=== PATIENT | female | born 1985 | race Caucasian/White ===

== ENCOUNTER 2020-04-01 21:25 | Emergency (ER) | payer OTHER, SELFPAY ==
[2020-04-01 21:38] VITALS: BP 170/101; PULSE 111; RESP 16; TEMP 36.7; O2SAT 97; BMI 38.9
--- NOTE | 2020-04-01 22:01 | XR_ITS ---
PROCEDURE: XR CHEST 2V Referring Doctor: José Miguel Bowie Patient Age:34Y CLINICAL HISTORY: shortness of air. Burning central chest pain 3 days. Abdominal pain COMPARISON: CT CT ANGIO CHEST from 04/01/2020 FINDINGS: Poor inspiratory effort on the current PA and lateral film obtained today.-This crowds and accentuates lung markings bilaterally. And I believe accounts for the slightly generous central markings I believe attributable to the poor inspiration; although difficult to exclude some mild vascular engorgement and congestion. However heart is normal in size. The peripheral lung astorga are clear and unremarkable with no focal consolidation or peripheral pneumonia No pleural effusion. No pneumothorax. Prominent gastric bubble reflects the moderate distention of stomach. There is contrast seen within the kidneys bilaterally but some generous gas within large bowel with some moderate air-fluid levels in bowel. Upper abdomen Chest wall, ribs T-spine unremarkable on standard PA and lateral chest IMPRESSION: Poor inspiration crowds and a accentuates markings bilaterally. . Mild prominence of central markings central vascularity most likely attributable to the poor inspiration. No focal pneumonia . Incidental note generous gastric bubble-moderate gaseous distension. Dictated by: Cruz Rene MD 04/02/2020 12:14 Cruz Rene MD in [place] 04/02/2020 12:14
[2020-04-01 22:18] LABS: Basophils % 0.3 % (0.1-2.0); Hematocrit 42.7 % (37.0-47.0); Hemoglobin 14.1 g/dL (12.2-16.2); Lymphocytes # 1.3 K/mm3 (0.7-4.5); Lymphocytes % 13.7 % (10-50); Mean Corpuscular Hemoglobin 28.4 pg (27.0-31.2); Monocytes # 0.7 K/mm3 (0.1-1.0); Monocytes % 7.6 % (1.7-9.3); Neutrophils # 7.3 K/mm3 (1.8-7.8); Neutrophils % 78.4 % (37.0-80.0); Platelet Count 299 K/mm3 (142-424); Red Blood Count 4.96 M/mm3 (4.20-5.40); Red Cell Distribution Width 13.5 % (11.5-17.5); White Blood Count 9.3 K/mm3 (4.8-10.8)
[2020-04-01 22:30] LABS: Alanine Aminotransferase 40 U/L (12-78); Albumin Level 4.7 g/dl (3.5-5.0); Albumin/Globulin Ratio 1.4 (1.1-1.8); Alkaline Phosphatase 89 U/L (38-126); Anion Gap 15.2 mEq/L (5-15); Aspartate Amino Transferase 31 U/L (14-36); Bilirubin,Total 0.2 mg/dl (0.2-1.3); Blood Urea Nitrogen 17 mg/dl (7-17); Calcium 9.9 mg/dl (8.4-10.2); Carbon Dioxide 25 mmol/L (22.0-30.0); Chloride 104 mmol/L (98-107); Creatinine Clearance Estimated 177 mL/min (50-200); Estimated Glomerular Filt Rate 95 ml/min (>60); GFR (African American) 115 ML/MIN (>60); Globulin 3.4 g/dL (1.3-3.2); Glucose 128 mg/dl (74-100); Potassium 4.2 mmoL/L (3.5-5.1); Sodium 140 mmol/L (136-145); Total Protein,Serum 8.1 g/dl (6.3-8.2)
[2020-04-01 22:35] LABS: C-Reactive Protein 4.7 mg/L (0-4)
--- NOTE | 2020-04-01 22:35 | CT_ITS ---
PROCEDURE: CT ANGIO CHEST Referring Doctor: José Miguel Bowie Patient Age:34Y CLINCIAL INDICATION: PE r/o Chest burning chest pain 3 days short of breath started today. Nonsmoker. COMPARISON: CR XR CHEST 2V from 04/01/2020 TECHNIQUE: IV Contrast: 70ML Isovue 370 Axial images obtained with sagittal and coronal reformats. All CT scans at the facility use one or more dose reduction, viz: automated exposure control, ma/kV adjustment per patient size (including targeted exams where dose is matched to indication, i.e. head), or iterative reconstruction technique. FINDINGS: PULMONARY ARTERIES: No pulmonary embolus evident. But the main pulmonary artery measures up to 3.5 cm transverse diameter-of this may reflect underlying developing pulmonary hypertension (upper normal measuring value for pulmonary artery 3.3 cm) alternatively pulmonary valve stenosis could yield some possibly yield some poststenotic dilatation. Thus recommend echocardiogram to further survey these features and serve as baseline AORTA: No acute finding. No thoracic aortic aneurysm or dissection evident LUNGS: Mild dependent atelectasis most evident at the posterior left lung base No focal pneumonia or consolidation. Small 6 mm calcified granuloma left upper lobe l PLEURAL SPACES: No sig pleural effusion. No evidence of pneumothorax. HEART: Unremarkable. Normal heart size. No significant pericardial effusion. MEDIASTINAL AND HILAR STRUCTURES: No mediastinal or hilar mass evident. No dominant adenopathy Small calcified node anterior fat pad anterior to the left cardiac apex incidentally. Also tiny calcified left hilar node likely reflect old granulomatous disease BONY STRUCTURES: No acute bony abnormalities apparent. Chest wall, ribs and T-spine intact. Scant degenerative changes T-spine LYMPH NODES: No enlarged lymph nodes evident. UPPER ABDOMEN: The stomach appears relatively distended of mainly fluid along with some minimal particulate food. Diffuse fatty changes the liver noted IMPRESSION: 1..No evidence of pulmonary embolism . Aorta satisfactory as well . Only mild bibasilar atelectasis most notable left lung base. No significant acute pulmonary findings 2..Note slight dilatation of the main pulmonary artery up to 3.5 cm diameter. Could reflect developing pulmonary hypertension; consider echocardiogram to further characterize 3. Other observations: Fatty changes the liver Distended stomach upper normal wall thickness distal esophagus-any history of reflux? Dictated by: Cruz Rene MD 04/02/2020 12:07 Cruz Rene MD in [facility] 04/02/2020 12:07
[2020-04-01 22:40] VITALS: BP 165/89; PULSE 91; RESP 16; O2SAT 98
[2020-04-01 22:49] LABS: Procalcitonin 0.059 ng/mL (0.0-2.0)
--- NOTE | 2020-04-01 23:23 | HMH.EDURI ---
ED Disposition Clinical Impression: Viral infection, COVID-19 virus IgG antibody detected, COVID-19 virus IgM antibody detected, Pulmonary HTN Disposition: Home, Self-Care Condition on Discharge: Good Instructions: Preventing the Spread of Coronavirus Discharge Instructions Additional Instructions: fluids and see card for follow up - and covid-19 precautions Referrals: PCP,No [Primary Care Provider] - - Critical Care Critical Care Time: No Attestation: On 04/01/20, the high probability of a clinically significant, sudden or life threatening deterioration of the following system(s) required my full and direct attention, intervention and personal management. The time I documented below is in addition to time spent performing reported procedures but includes the following listed in this critical care notation. Medical Decision Making - Medical Records Medical records reviewed: Yes: I reviewed the patient's medical records. - Alejo Inquiry Pt receiving controlled substance: No Vital Signs: 04/01/20 21:38 Temperature 98.1 F Temperature Source Oral Pulse Rate [Right Brachial] 111 H Respiratory Rate 16 Blood Pressure [Right Arm] 170/101 H Blood Pressure Mean [Right Arm] 124 Blood Pressure Source [Right Arm] Automatic Cuff Blood Pressure Position [Right Arm] Sitting 02 Sat by Pulse Oximetry 97 Oxygen Delivery Method Room Air - Lab Data Lab results reviewed: Yes: I reviewed the patient's lab results. Lab Results 04/01/20 22:00: WBC 9.3, RBC 4.96, Hgb 14.1, Hct 42.7, MCV 86.0, MCH 28.4, MCHC 33.0, RDW 13.5, Plt Count 299, MPV 8.0, Neut % (Auto) 78.4, Lymph % (Auto) 13.7, Scott % (Auto) 7.6, Eos % (Auto) 0.0 L, Baso % (Auto) 0.3, Neut # (Auto) 7.3, Lymph # (Auto) 1.3, Scott # (Auto) 0.7, Eos # (Auto) 0.0, Baso # (Auto) 0.0 04/01/20 22:00: Sodium 140, Potassium 4.2, Chloride 104, Carbon Dioxide 25, Anion Gap 15.2 H, BUN 17, Creatinine 0.70, Estimated Creat Clear 177, Estimated GFR 95, Est GFR ( Amer) 115, Glucose 128 H, Calcium 9.9, Total Bilirubin 0.2, AST 31, ALT 40, Alkaline Phosphatase 89, C-Reactive Protein 4.7 H, Total Protein 8.1, Albumin 4.7, Globulin 3.4 H, Albumin/Globulin Ratio 1.4 04/01/20 22:00: Procalcitonin 0.059 04/01/20 22:00: SARS-CoV-2 IgG Ab (Rapid) Positive A, SARS-CoV-2 IgM Ab (Rapid) Positive A Result diagrams: 04/01/20 22:00 04/01/20 22:00 Orders (Tests/Meds): ED MEDICATIONS Generic Name Dose Route Start Last Admin Trade Name Freq PRN Reason Stop Dose Admin Sodium Chloride 1,000 mls @ 999 mls/hr 04/01/20 22:15 04/01/20 22:11 Sod Chlor 0.9% 1000ml Bag IV 04/01/20 23:15 999 mls/hr .Q1H1M ANA Administration Discontinued Medications Generic Name Dose Route Start Last Admin Trade Name Freq PRN Reason Stop Dose Admin Sodium Chloride 500 mls @ 999 mls/hr 04/01/20 22:15 Sod Chlor 0.9% 1000ml Bag IV 04/01/20 22:45 .Q31M ANA Iopamidol 70 ml 04/01/20 23:58 04/01/20 23:31 Iopamidol-370 (76%);100ml Bottle IV 04/01/20 23:59 70 ml ONCE ONE Administration Ketorolac Tromethamine 30 mg 04/01/20 22:06 04/01/20 22:11 Ketorolac 30mg/Ml Vial IV 04/01/20 22:07 30 mg ONCE ONE Administration Methylprednisolone Sodium Succinate 125 mg 04/01/20 22:06 04/01/20 22:11 Methylprednisolone Sod Succ 125mg Vial IV 04/01/20 22:07 125 mg ONCE ONE Administration Ondansetron HCl 4 mg 04/01/20 22:06 04/01/20 22:11 Ondansetron 4mg/2ml Vial IV 04/01/20 22:07 4 mg ONCE ONE Administration Sodium Chloride 40 ml 04/01/20 23:58 04/01/20 23:31 0.9 % Sodium Chloride 50 Ml Vial IV 04/01/20 23:59 40 ml ONCE ONE Administration Sodium Chloride 10 ml 04/01/20 23:58 04/01/20 23:31 Sodium Chloride 0.9% 10ml Syr (Rad Only) IV 04/01/20 23:59 10 ml ONCE ONE Administration ORDERS Category Date Time Status CTA Chest [CT angio chest] Stat Cat Scan 04/01/20 22:35 Taken XR chest 2V Stat Exams 04/01/20 22:01 Taken Covid-19 Na
[2020-04-01 23:40] VITALS: BP 152/87; PULSE 101; RESP 17; O2SAT 97
--- NOTE | 2020-04-01 23:44 | PC.NURSE ---
back from ct. no incidences noted
[2020-04-01 23:55] LABS: Coronavirus 19 IgG Antibody Positive (Negative)
[2020-04-01 23:56] LABS: Coronavirus 19 IgM Antibody Positive (Negative)
--- NOTE | 2020-04-02 00:08 | ECG_ITS ---
APPROVED REPORT Exam: Resting ECG HR:73 bpm ECG Measurements Heart Rate 73 AXES OK 128 P 17 QRSd 74 QRS -3 QT 396 T 13 QTc 436 Conclusion Normal sinus rhythm Normal ECG Electronically signed by : Roe Pardo, 04/02/2020 08:44:24
[2020-04-02 00:50] VITALS: BP 142/82; PULSE 81; RESP 16; TEMP 36.6; O2SAT 97
[2020-04-03 10:01] LABS: Covid-19 Nasal PCR Sendout UK Detected
== END 2020-04-02 01:01 | disposition home or self-care (01) ==
PROVIDERS: Emergency Provider Emergency Medicine
DX: U07.1 COVID-19 (principal); I27.20 Pulmonary hypertension, unspecified
CPT/HCPCS: 71046; 71275; 80053; 84145; 85025; 86140; 86328; 93005; 96365; 96375; 99283; J2405; Q9967; U0003

== ENCOUNTER → 2020-04-19 09:42 | Outpatient (CLI) | payer OTHER, SELFPAY ==
--- NOTE | 2020-04-19 09:45 | CA_ITS ---
APPROVED REPORT EXAM: Comprehensive 2D, Doppler, and color-flow Echocardiogram Coater Slate: Mnoa uV RDCS Ht: 5 ft 4 in Wt: 204lbs BSA: 1.97 BP: 129/81 mmHg Indications: SOA,PALPS,EDEMA,TACHY,POST COVID 2D Dimensions LVOT 1.81 cm (M/F) 1.5-2.5 M-Mode Dimensions RVDd 1.57 cm (0.9-2.6) LA Diam 3.23 cm (1.9-4.0) LVDd 5.74 cm (3.5-5.7) Ao Diam 3.16 cm (2.0-3.7) LVDs 3.95 cm (3.5-5.7) IVSd 0.85 cm (0.6-1.1) PWd 1.08 cm (0.6-1.1) EF (Teich) 58.20% FS 31.20% EDV (Teich) 162.60 mL ESV (Teich) 67.90 mL LV Diastology E Decel Time 207.00 (160-240 msec) E/A Ratio 1.2 Mitral Valve MV E Max Musa. 69.00 (40-130 cm/s) MV A Velocity 57.00 (40-130 cm/s) E/A Ratio 1.22 MV Decel. Time 207.00 (160-240 ms) MV PHT 61.00 ms Left Ventricle Left atrium is normal size, left ventricle is normal size, there is no concentric left ventricular hypertrophy, visually estimated ejection fraction 55% with no regional wall motion abnormality. Endocardial surfaces are poorly visualized. Diastolic parameters are inconclusive. Right Ventricle Right atrium and right ventricle are relatively normal size and function. Aortic Valve Aortic valve is grossly normal. There is no aortic stenosis or aortic insufficiency. Mitral Valve Mitral valve is grossly normal, there is trace mitral regurgitation. Tricuspid Valve Tricuspid valve grossly normal, there is trace tricuspid regurgitation, tricuspid regurgitation jet velocity is inadequate for calculation of the right ventricular systolic pressure. Pulmonic Valve Pulmonic valve is poorly visualized. Great Vessels Aortic root is normal size. Pericardium No significant pericardial effusion noted. Conclusion 1. Technically difficult study because of the patient factors and poor acoustic windows. 2. Normal left ventricular size, preserved left ventricular systolic function, visually estimated ejection fraction 55% with no regional wall motion abnormality, diastolic parameters are inconclusive. 3. Trace mitral and tricuspid regurgitation 4. No significant pericardial effusion noted. Electronically signed by : Darin Alan, 04/20/2020 15:34:39
== END ==
PROVIDERS: PCP Internal Medicine; Visit Provider Physician Assistant
DX: R06.00 Dyspnea, unspecified (principal); R00.2 Palpitations; I28.8 Other diseases of pulmonary vessels
CPT/HCPCS: 93306

== ENCOUNTER 2024-12-01 10:48 | Emergency (ER) | payer OTHER, SELFPAY ==
[2024-12-01] VITALS (10 sets, daily range): BP systolic 124–151; BP diastolic 77–109; PULSE 78–111; RESP 13–18; TEMP 36.8–37; O2SAT 96–100; BMI 33.6
--- NOTE | 2024-12-01 10:52 | HMH.EDGENADL ---
Discharge Plan Disposition Patient Disposition: Home, Self-Care Condition: Good Prescriptions Prescriptions: No Action omeprazole 10 mg capsule,delayed release(DR/EC) 10 mg PO DAILY bupropion HCl 300 mg tablet extended release 24 hr 150 mg PO DAILY Patient Comments: Take 1 tablet by mouth daily Referrals Follow up/Referrals: Monse Castillo APRN [Primary Care Provider, Medical] - See instructions Activity Restrictions/Add. Instructions Additional Instructions/Restrictions: Please follow up with your primary care provider in 2-3 days. Please return to ED if your symptoms worsen, change in location, change in severity, new symptoms develop or if you become concerned for your health. Clinical Impressions Clinical Impression: Episodic lightheadedness, Anxiety, Shortness of breath Print Language Print Language: Greek Discharge ED Provider: Ponce Soria Adult HPI General Chief complaint: Headache Stated complaint: headache, weakness, L side numbish Time Seen by Provider: 12/01/24 10:52 History of Present Illness HPI narrative: Patient is a 39-year-old female with a history of migraines. She presents today due to concerns for headache that is lasted 5 days. Waxing and waning. Excedrin and ibuprofen at home with no relief. Begins in the occipital region and radiates around to her frontal aspect. Denies any vision changes. She does report some paresthesias in her left upper extremity and occasionally in her left face and left leg, although now it is just in her left arm. She reports some subjective weakness, she dropped a cup of water earlier today. She reports that the sensory changes and weakness began last night at around 8 PM. She denies any fevers, vomiting, diarrhea, chest pain shortness of breath or other sick like symptoms. She does have auras with her migraines in the past, but reports that this feels different. Related Data Home Medications ?Medication ?Instructions ?Recorded ?Confirmed omeprazole 10 mg capsule,delayed 10 mg PO DAILY 04/17/20 04/17/20 release bupropion HCl 300 mg 24 hr tablet, 150 mg PO DAILY 04/26/20 extended release Allergies Allergy/AdvReac Type Severity Reaction Status Date / Time No Known Allergies Allergy Verified 04/26/20 13:18 [facility] Disclaimer: The information contained in this section may have been updated after the patient was seen, as this information can be updated by other users. Medical History (Updated 12/01/24 @ 14:10 by Ponce Soria MD) Palpitations Dyspnea COVID-19 virus detected Social History Smoking Status: Never smoker alcohol intake: never substance use type: denies use current occupational status: employed and disabled Travel in the last 8 weeks?: Inside the [place] Have you lived/traveled outside US in past 30 days?: No Contact w/someone who lives/traveled outside US past 30 days?: No Exposure to someone with infectious disease in past 14 days?: No Do you have a fever (greater than 100.4 F or 38 C)?: No Have you tested positive for COVID-19?: No Exposed to someone with COVID-19 in past 14 days?: No Do you have a sore throat?: No Do you have a cough?: No Do you have any weakness?: Yes Do you have any diarrhea?: No Are you experiencing any unusual bleeding?: No Do you have any muscle aches/pain?: No Do you have any abdominal pain?: No Are you experiencing loss of taste or smell?: No Other Medical History Have you received the Flu Vaccine for this season: No Have you received the Pneumonia Vaccine: No ROS Obtained: Yes All systems reviewed & no additional complaints except as documented Physical Exam General General appearance: alert and in no apparent distress Head Head exam: atraumatic and normocephalic Eye Eye exam: Present PERRL and EOMI ENT ENT exam: Present normal oropharynx Neck Neck exam: Present full ROM and trachea midline Chest Chest inspection: Present symmetric chest wall rise Respiratory Respiratory exam: Present normal lung sounds bilaterally; Absent stridor Cardiovascular Cardiovascular exam: Present regular rate and normal rhythm Abdominal Exam Abdominal exam: Present soft; Absent distention or tenderness Extremities Exam Extremities exam: Present full ROM Neurological Exam Neurological exam: Present alert and oriented X3 Psychiatric Psychiatric exam: Present normal mood Skin Skin exam: Present warm and dry Medical Decision Making Medical Records Screening: Per USPSTF and CDC recommendations, given the prevalence of disease in our region, it is our hospital?s policy to screen for HIV and viral Hepatitis for all patients aged 18 and over and those with ongoing risk factors. Alejo Inquiry Pt receiving controlled substance: No Vital Signs: 12/01/24 10:55 12/01/24 11:00 12/01/24 11:07 Temperature 98.3 F Temperature Source Oral Pulse Rate 111 H 102 H Pulse Rate [Right Radial] 111 H Respiratory Rate 16 16 Blood Pressure 142/109 H 142/105 H Blood Pressure [Right Arm] 142/109 H Blood Pressure Mean Blood Pressure Mean [Right Arm] 120 Blood Pressure Source [Right Arm] Automatic Cuff Blood Pressure Position [Right Arm] Supine 02 Sat by Pulse Oximetry 98 98 98 Oxygen Delivery Method Room Air 12/01/24 11:30 12/01/24 12:00 12/01/24 12:30 Temperature Temperature Source Pulse Rate 92 H 86 84 Pulse Rate [Right Radial] Respiratory Rate 13 15 15 Blood Pressure 143/86 H 128/77 146/89 H Blood Pressure [Right Arm] Blood Pressure Mean 105 Blood Pressure Mean [Right Arm] Blood Pressure Source [Right Arm] Blood Pressure Position [Right Arm] 02 Sat by Pulse Oximetry 96 96 100 Oxygen Delivery Method 12/01/24 13:00 12/01/24 13:30 Temperature Temperature Source Pulse Rate 82 78 Pulse Rate [Right Radial] Respiratory Rate 14 18 Blood Pressure 151/91 H 124/78 Blood Pressure [Right Arm] Blood Pressure Mean 113 93 Blood Pressure Mean [Right Arm] Blood Pressure Source [Right Arm] Blood Pressure Position [Right Arm] 02 Sat by Pulse Oximetry 100 99 Oxygen Delivery Method Lab Data Lab Results 12/01/24 11:21: WBC 5.7, RBC 4.51, Hgb 13.4, Hct 38.1, MCV 84.5, MCH 29.7, MCHC 35.2, RDW 12.0, Plt Count 256, MPV 10.4, Neut % (Auto) 54.2, Lymph % (Auto) 37.5, Bland % (Auto) 6.2, Eos % (Auto) 1.4, Baso % (Auto) 0.5, Neut # (Auto) 3.1, Lymph # (Auto) 2.1, Bland # (Auto) 0.4, Eos # (Auto) 0.1, Baso # (Auto) 0.0, Sodium 136, Potassium 3.7, Chloride 104, Carbon Dioxide 24, Anion Gap 11.7, BUN 12, Creatinine 0.70, Estimated Creat Clear 145, Estimated GFR 93, Est GFR ( Amer) 112, Glucose 105 H, Calcium 9.5, Magnesium 2.0, Total Bilirubin 0.9, AST 39 H, ALT 33, Alkaline Phosphatase 78, Total Protein 7.7, Albumin 4.7, Globulin 3.0, Albumin/Globulin Ratio 1.6, Serum HCG, Qual Negative, HCV Ab SHARIF w/Rflx PCR Qn Negative, HIV Ag/Ab Combo Qual Negative 12/01/24 11:21 12/01/24 11:21 Orders (Tests/Meds): ED MEDICATIONS Discontinued Medications Generic Name Dose Route Start Last Admin Trade Name Lazaroq PRN Reason Stop Dose Admin Diphenhydramine HCl 25 mg 12/01/24 11:05 12/01/24 11:26 Diphenhydramine 50mg/Ml Vial IV 12/01/24 11:06 25 mg ONCE ONE Administration Droperidol 2.5 mg 12/01/24 11:05 12/01/24 11:26 Droperidol 5mg/2ml Vial IV 12/01/24 11:06 2.5 mg ONCE ONE Administration Sodium Chloride 1,000 mls @ 999 mls/hr 12/01/24 11:05 12/01/24 11:26 Sod Chlor 0.9% 1000ml Bag IV 12/01/24 12:05 999 mls/hr .Q1H1M ONE Administration Iopamidol 80 ml 12/01/24 12:07 12/01/24 12:07 Iopamidol-370 (76%);100ml Bottle IV 12/01/24 12:08 80 ml ONCE ONE Administration Sodium Chloride 50 ml 12/01/24 12:07 12/01/24 12:07 0.9 % Sodium Chloride 50 Ml Vial IV 12/01/24 12:08 50 ml ONCE ONE Administration Sodium Chloride 10 ml 12/01/24 12:07 12/01/24 12:07 Sodium Chloride 0.9% 10ml Syr (Rad Only) IV 12/01/24 12:08 10 ml ONCE ONE Administration ORDERS Category Date Time Status CT angio head Stat Cat Scan 12/01/24 11:[address] angio neck Stat Cat Scan 12/01/24 11:[address] head/brain wo con Stat Cat Scan 12/01/24 11:07 Completed CBC w/Auto Diff [Complete Blood Count Auto Diff] Stat Lab 12/01/24 11:21 Completed CMP [Comprehensive Metabolic Panel] Stat Lab 12/01/24 11:21 Completed HCG Qualitative, Serum Stat Lab 12/01/24 11:21 Completed HIV Combo Stat Lab 12/01/24 11:21 Completed Hepatitis C Ab Qual. W/ RFX Stat Lab 12/01/24 11:21 Completed MAG [Magnesium] Stat Lab 12/01/24 11:21 Completed Medical Decision Narrative: In summary, this 39-year-old female presents to the emergency department today with headache. On initial evaluation patient is afebrile, mildly tachycardic, otherwise stable. On exam, is warm and well-perfused full pulses brisk upper refill. Pupils are gone reactive cranial nerves II through XII are intact, she does report paresthesias in the entirety of the left upper extremity. No objective weakness on my examination. Heart is regular rate and rhythm. Lung sounds clear to station bilaterally.. Differential diagnosis includes but is not limited to complex migraine, tension headache, subarachnoid hemorrhage, CVA. Based on these concerns, I ordered CBC CMP magnesium CT head CTA head and neck.. I have a higher suspicion for complex migraine given patient's history of migraines. Have offered her a occipital nerve block which she politely declines and prefers medical management will give droperidol and Benadryl and fluids. Patient's EKG was independently reviewed by me, and interpreted to be significant for NSR with no acute ST-segment changes. QTc within normal limit On reassessment, lab work globally within normal limits, D-dimer negative, troponins negative, high suspicion that patient was just having a panic reaction. Has good follow-up with PCP. Strict precautions discussed all questions amenable to plan and discharge At this time it was felt that the patient was safe to be discharged home. The patient was in agreement with this plan. The patient was given strict return precautions prior to being discharged from the emergency department. Critical Care Critical Care Time Critical Care Time: No
--- NOTE | 2024-12-01 11:07 | CT_ITS ---
FINAL REPORT CLINICAL HISTORY: velazquez, LUE paresthesias FINDINGS: CT NECK ANGIO, WITHOUT AND WITH CONTRAST TECHNIQUE: Thin section axial CT with contrast with multiplanar 3D MIP reconstruction. This study was performed with techniques to keep radiation doses as low as reasonably achievable, (ALARA). Individualized dose reduction techniques using automated exposure control or adjustment of mA and/or kV according to the patient''s size were employed. NASCET criteria and technique was utilized during interpretation. Aortic arch: Arch shows no significant narrowing. Great vessel origins are widely patent. Right carotid: No significant stenosis is seen of the cervical common or internal carotid artery. Left carotid: No significant stenosis is seen of the cervical common or internal carotid artery. Vertebrals: Left vertebral artery is dominant. No significant stenosis is present. IMPRESSION: No significant stenosis of the cervical carotid arteries This study was performed using automated techniques to achieve radiation exposure as low as reasonably Reviewed, Interpreted and Dictated by Ying Bah MD Transcribed by Brook Starr Authenticated and [facility]
--- NOTE | 2024-12-01 11:07 | CT_ITS ---
FINAL REPORT CLINICAL HISTORY: velazquez, LUE paresthesias FINDINGS: CTA HEAD TECHNIQUE: Thin section axial CT with contrast with 3D MIP reconstruction This study was performed with techniques to keep radiation doses as low as reasonably achievable, (ALARA). Individualized dose reduction techniques using automated exposure control or adjustment of mA and/or kV according to the patient''s size were employed. No aneurysm is seen. Major intracranial vessels are patent without significant stenosis. . IMPRESSION: Unremarkable This study was performed using automated techniques to achieve radiation exposure as low as reasonably achievable Reviewed, Interpreted and Dictated by Ying Bah MD Transcribed by Brook Starr Authenticated and . [facility]
--- NOTE | 2024-12-01 11:07 | CT_ITS ---
FINAL REPORT TECHNIQUE: Noncontrast exam This study was performed with techniques to keep radiation doses as low as reasonably achievable, (ALARA). Individualized dose reduction techniques using automated exposure control or adjustment of mA and/or kV according to the patient''s size were employed. CLINICAL HISTORY: velzaquez, LUE paresthesias FINDINGS: No abnormal density is seen. Ventricles are normal. There is no hemorrhage. No mass effect is seen. Bone windows show no evidence of fracture. IMPRESSION: No acute findings Reviewed, Interpreted and Dictated by Ying Bah MD Transcribed by Brook Starr Authenticated and [facility]
--- OUTSIDE RECORDS SUMMARY | 2024-12-01 11:09 | XMS_ITS | Clinical Summary ---
Author Organization [facility] Address [address] [place] [address] Care Team Providers Care Corporate Intern Name Role Phone Physician, No Primary Care Primary Care Provider Unavailable Allergies No known active allergies Medications omeprazole (PRILOSEC) 20 MG capsule Take 20 mg by mouth daily. Active buPROPion (WELLBUTRIN XL) 150 MG 24 hr tablet Take 150 mg by mouth daily. Active ergocalciferol (VITAMIN D2) 1,250 mcg (50,000 unit) capsule Take 50,000 Units by mouth once a week. Active Social History Tobacco Use Types Packs/Day Years Used Date Smoking Tobacco: Never Smokeless Tobacco: Never Alcohol Use Standard Drinks/Week Comments Not Currently 0 (1 standard drink = 0.6 oz pur e alcohol) [place] Housing Stability Vital Sign Answer Date Recorded What is your living situation today? Not on file 05/09/[address] you li ve. Do you have problems with any of the following? Not on file 05/09/2023 Safety and Environment Answer Date Dmitry rded How often does anyone, ana veloz family and friends, physically hurt you? Not on file 07/02/2023 How often does anyone, ana veloz family and friends, insult or talk down to you? Not on file 07/02/2023 How often does anyone, ana veloz family and friends, threaten you with harm? Not on file 07/02/2023 How often does anyone, ana veloz family and friends, scream or curse at you?' Not on file 07/02/2023 Comments No Sex and Gender Information Value Date Recorded Sex Assigned at Not on file Legal Sex Female 4:33 PM CDT Gender Identity Not on file Sexual Orientation Not on file Last Filed Vital Signs Vital Sign Reading Time Taken Comments Blood Pressure 145/94 09/16/2020 4:53 PM CDT Pulse 102 09/16/2020 4:53 PM CDT Temperature 36.8 C (98.3 F) 09/16/2020 4:53 PM CDT Respiratory Rate 17 09/16/2020 4:53 PM CDT Oxygen Saturation 98% 09/16/2020 4:53 PM CDT Inhaled Oxygen Concentration - - Weight 99.8 kg (220 lb) 09/16/2020 4:53 PM CDT Height 160 cm (5' 3 ) 09/16/2020 4:53 PM CDT Body Mass Index 38.97 09/16/2020 4:53 PM CDT Plan of Treatment Health Maintenance Due Date Last Done Comments IMM Schedule: Varicella (1 o f 2 - 13+ 2-dose series) 1997 IMM Schedule: Hepatitis B (1 of 3 - 19+ 3-dose series) 08/25/2003 IMM Schedule: Diphtheria, Tetanus, and Pertussis (2 - Td or Tdap) 11/19/2023 11/18/2013 COVID-19 Vaccine (2023-2 5 season) 2024 IMM Schedule: Influenza (#1) 2025, 01/28/2017, 03/11/2016 IMM Schedule: Zoster (1 of 2) 2034 IMM Schedule: Hepatitis A Aged Out No longer eligible based on patient's age to complete this topic IMM Schedule: Meningococcal ACWY (Menhibrix/Menomune) Aged Out No longer elig ible based on patient's age to complete this topic IMM Schedule: Meningococcal B Aged Out No longer eligible based on patient's age to complete this topic IMM Schedule: Pneumococcal (0-49 yrs) Aged Out No longer eligible b ased on patient's age to complete this topic IMM Schedule: RSV <20 Months Aged Out No longer eligible based on patient's age to complete this topic Insurance [facility] [facility] Care Teams Corporate Intern Relationship Specialty Start Date End Date Physician, No Primary Care PCP - General Internal Medicine 09/16/20 Additional Source Comments IMPORTANT NOTICES REGARDING PATIENT RECORDS DISCLOSED THROUGH CARE EVERYWHERE:1. If the informationreleased to you contains information about AIDs or HIVtest results, that information has been disclosed to you from records whoseconfidentiality is protected by state law ([place] 214.625). State law proh ibitsyou from making any further disclosure of such information relating to AIDS orHIV without the specific written consent of the person to whom such informationpertains, or as otherwise permitted by state law. A general authorization forthe release of medical or other information is NOT sufficient for this purpose.2. If the information released to you contains information about alcohol ordrug abuse diagnosis, treatment for such abuse, or referrals for treatment, andif the release was made by a program as defined in 42 CFR 2.11, thisinformation has been disclosed to you from records protected by Federalconfidentiality rules ( TheFederal rules restrict any use of the information to criminally investigate orprosecute any alcohol or drug abuse patient.3. If the information released to you contains information about a person'smental health or chemical dependency, you may not redisclose or otherwisereveal information concerning the mental health or chemical dependency of thatperson, beyond the purpose for which the disclosure was made, without firstobtaining that person's specific written consent to the redisclosure. [id number].[facility]
--- OUTSIDE RECORDS SUMMARY | 2024-12-01 11:09 | XMS_ITS | Data Portability ---
Author Organization [facility] Address [address] [place] [address] Assessment Encounter Date Assessment Date Assessment LastModified by Organization Details LastModified Time 09/10/2024 09/10/2024 Risks, benefits, and alternatives of the medication have been discussed with the patient. She would like to move forward with a prescription of adipex. efryman Not available 09/10/2024 08:23:08 11/05/2024 11/05/2024 Risks, benefits, and alternatives of the medication have been discussed with the patient. She would like to move forward with a prescription of adipex. efryman Not available 11/05/2024 09:29:25 Plan of Treatment Reminders Order Date Submit Date Provider Last Modified By Organization Details Last Modified Time Details Appointments Follow Up 2024 09:00A M Monse Castillo APRN Not available Not available Not available Lab lipid panel, serum 2024 025 NAILA [facility], [address], [address], [place], [address], 09/11/2024 11:10:15 vitamin D, 25-hydrox y, total, serum 2024 025 NAILA [facility], [address], [place], [place], [address], 09/11/2024 11:10:15 drug screen, 14 drugs (detectim ed), urine 2024 025 NAILA [facility], [address], [place], [place], [address], 09/20/2024 23:06:49 TSH + free T4, serum 2024 025 NAILA [facility], [address], [place], [place], [address], 09/11/2024 11:10:14 CMP, serum or plasma 2024 025 NAILA [facility], [address], [place], [place], [address], 09/11/2024 11:10:14 CBC w/ auto diff 2024 025 NAILA [facility], [address], [place], [place], [address], 09/11/2024 11:10:14 Referral None recorded. Procedures venipunct ure routine (PROC) 2024 025 evan Not available 09/28/2024 18:54:29 Surgeries None recorded. Imaging None recorded. Medication Orders phentermi ne 37.5 mg tablet 2024 025 [facility], [address] [place] [address] [place], [id number], 11/05/2024 11:17:47 phentermi ne 37.5 mg tablet 2024 025 [facility], [address] [place] [address] [place], [id number], 09/10/2024 13:31:54 Wegovy 0.25 mg/0.5 mL subcutane ous pen injector [address] [place], [id number], 09/10/2024 09:26:10 Adipex-P 37.5 mg tablet 2023 024 evan [facility], [address] [place] [address] , [place], [place], [id number], 09/10/2024 08:18:25 Patient TargetsNo targets recorded. Patient Instructions Encounter Date Encounter Id Patient Instructions Last Modified By Organization Details Last Modified Time 05/14/2024 [id number] learning about healthy weight efryman Not available 05/14/2024 10:25:50 body mass index: care instructions efryman Not available 05/14/2024 10:25:50 09/10/2024 [id number] learning about healthy weight efryman Not available 09/10/2024 08:42:17 body mass index: care instructions efryman Not available 09/10/2024 08:42:17 Treament Plan: Patient will start medication as directed. Patient will continue exercise, watch calorie intake, and follow up for weight check in 1 month. evan Not available 09/10/2024 08:06:28 11/05/2024 [id number] Treament Plan: Patient will start medication as directed. Patient will continue exercise, watch calorie intake, and follow up for weight check in 1 month. evan Not available 11/05/2024 08:38:32 Reason for Referral None Reported. Results Created Date Observation Date Name Description Value Unit Range Abnormal Flag Note LastModifiedBy Organization Detail LastModifiedTime 09/11/1909/11/2024 TSH+F REE T4 TSH 1.900 uIU/m L 0.450- 4.500 normal Not Available [facility] ([facility]) [address] [place], [address], 09/11/2024 11:10:14 09/11/19 25 09/11/2024 TSH+F REE T4 T4,free(dire ct) 1.06 NG/dL 0.82-1 .77 normal Not Available [facility] ([facility]) [address] [facility], [place], [address], 09/11/2024 11:10:14 09/11/19 25 09/11/2024 CBC WITH DIFFE RENTI AL/PL ATELE T WBC 5.5 x10e3 /uL 3.4-10 .8 normal Not Available [facility] ([facility]) [address] [place], [address], 09/11/2024 11:10:14 09/11/19 25 09/11/2024 CBC WITH DIFFE RENTI AL/PL ATELE T RBC 4.23 x10e6 /uL 3.77-5 .28 normal Not Available [facility] ([facility]) [address] [place], [address], 09/11/2024 11:10:14 09/11/19 25 09/11/2024 CBC WITH DIFFE RENTI AL/PL ATELE T hemoglobin 12.7 g/dL 11.1-1 5.9 normal Not Available [facility] ([facility]) [address] [facility], [place], [address], 09/11/2024 11:10:14 09/11/19 25 09/11/2024 CBC WITH DIFFE RENTI AL/PL ATELE T hematocrit 38.3 % 34.0-4 6.6 normal Not Available [facility] ([facility]) [address] [place], [address], 09/11/2024 11:10:14 09/11/19 25 09/11/2024 CBC WITH DIFFE RENTI AL/PL ATELE T MCV 91 fL 79-97 normal Not Available [facility] ([facility]) [address] [place], [address], 09/11/2024 11:10:14 09/11/19 25 09/11/2024 CBC WITH DIFFE RENTI AL/PL ATELE T MCH 30.0 pg 26.6-3 3.0 normal Not Available [facility] ([facility]) [address] [place], [address], 09/11/2024 11:10:14 09/11/19 25 09/11/2024 CBC WITH DIFFE RENTI AL/PL ATELE T MCHC 33.2 g/dL 31.5-3 5.7 normal Not Available [facility] ([facility]) [address] [facility], [place], [address], 09/11/2024 11:10:14 09/11/19 25 09/11/2024 CBC WITH DIFFE RENTI AL/PL ATELE T RDW 12.3 % 11.7-1 5.4 Not Available [facility] ([facility]) [address] [facility], [place], [address], 09/11/2024 11:10:14 09/11/19 25 09/11/2024 CBC WITH DIFFE RENTI AL/PL ATELE T platelets 228 x10e3 /uL 150-45 0 normal Not Available [facility] ([facility]) [address] [facility], [place], [address], 09/11/2024 11:10:14 09/11/19 25 09/11/2024 CBC WITH DIFFE RENTI AL/PL ATELE T neutrophils 60 % not estab. normal Not Available [facility] ([facility]) [address] [facility], [place], [address], 09/11/2024 11:10:14 09/11/19 25 09/11/2024 CBC WITH DIFFE RENTI AL/PL ATELE T lymphs 32 % not estab. normal Not Available [facility] ([facility]) [address] [facility], [place], [address], 09/11/2024 11:10:14 09/11/19 25 09/11/2024 CBC WITH DIFFE RENTI AL/PL ATELE T monocytes 4 % not estab. normal Not Available [facility] ([facility]) [address] [place], [address], 09/11/2024 11:10:14 09/11/19 25 09/11/2024 CBC WITH DIFFE RENTI AL/PL ATELE T eos 3 % not estab. normal Not Available [facility] ([facility]) [address] [facility], [place], [address], 09/11/2024 11:10:14 09/11/19 25 09/11/2024 CBC WITH DIFFE RENTI AL/PL ATELE T basos 1 % not estab. normal Not Available [facility] ([facility]) [address] [facility], [place], [address], 09/11/2024 11:10:14 09/11/19 25 09/11/2024 CBC WITH DIFFE RENTI AL/PL ATELE T immature cells TICKET SELLER Not Available [facility] ([facility]) [address] [facility], [place], [address], 09/11/2024 11:10:14 09/11/19 25 09/11/2024 CBC WITH DIFFE RENTI AL/PL ATELE T neutrophils (absolute) 3.3 x10e3 /uL 1.4-7. 0 normal Not Available [facility] ([facility]) [address] [facility], [place], [address], 09/11/2024 11:10:14 09/11/19 25 09/11/2024 CBC WITH DIFFE RENTI AL/PL ATELE T lymphs (absolute) 1.8 x10e3 /uL 0.7-3. 1 normal Not Available [facility] ([facility]) [address] [place], [address], 09/11/2024 11:10:14 09/11/19 25 09/11/2024 CBC WITH DIFFE RENTI AL/PL ATELE T monocytes(ab solute) 0.2 x10e3 /uL 0.1-0. 9 normal Not Available [facility] ([facility]) [address] [place], [address], 09/11/2024 11:10:14 09/11/19 25 09/11/2024 CBC WITH DIFFE RENTI AL/PL ATELE T eos (absolute) 0.2 x10e3 /uL 0.0-0. 4 normal Not Available [facility] ([facility]) [address] [facility], [place], [address], 09/11/2024 11:10:14 09/11/19 25 09/11/2024 CBC WITH DIFFE RENTI AL/PL ATELE T baso (absolute) 0.0 x10e3 /uL 0.0-0. 2 normal Not Available [facility] ([facility]) [address] [facility], [place], [address], 09/11/2024 11:10:14 09/11/19 25 09/11/2024 CBC WITH DIFFE RENTI AL/PL ATELE T immature granulocytes 0 % not estab. Not Available [facility] ([facility]) [address] [facility], [place], [address], 09/11/2024 11:10:14 09/11/19 25 09/11/2024 CBC WITH DIFFE RENTI AL/PL ATELE T immature grans (abs) 0.0 x10e3 /uL 0.0-0. 1 Not Available [facility] ([facility]) [address] [place], [address], 09/11/2024 11:10:14 09/11/19 25 09/11/2024 CBC WITH DIFFE RENTI AL/PL ATELE T NRBC TICKET SELLER Not Available [facility] ([facility]) [address] [place], [address], 09/11/2024 11:10:14 09/11/19 25 09/11/2024 CBC WITH DIFFE RENTI AL/PL ATELE T hematology comments: TICKET SELLER Not Available [facility] ([facility]) [address] [place], [address], 09/11/2024 11:10:14 09/11/19 25 09/11/2024 COMP. METAB OLIC PANEL (14) glucose 94 mg/dL 70-99 normal Not Available [facility] ([facility]) [address] [facility] [place], [address], 09/11/2024 11:10:14 09/11/19 25 09/11/2024 COMP. METAB OLIC PANEL (14) BUN 17 mg/dL 6-24 normal Not Available [facility] ([facility]) [address] [facility] [place], [address], 09/11/2024 11:10:14 09/11/19 25 09/11/2024 COMP. METAB OLIC PANEL (14) creatinine 0.61 mg/dL 0.57-1 .00 normal Not Available [facility] ([facility]) [address] [place] [place], [address], 09/11/2024 11:10:14 09/11/19 25 09/11/2024 COMP. METAB OLIC PANEL (14) eGFR 116 mL/mi n/1.7 3 >59 normal Not Available [facility] ([facility]) [address] [place] [place], [address], 09/11/2024 11:10:14 09/11/19 25 09/11/2024 COMP. METAB OLIC PANEL (14) BUN/creatini ne ratio 28 9-23 above high normal Not Available [facility] ([facility]) [address] [place] [place], [address], 09/11/2024 11:10:14 09/11/19 25 09/11/2024 COMP. METAB OLIC PANEL (14) sodium 142 mmol/ L 134-14 4 normal Not Available [facility] ([facility]) [address] [place] [place], [address], 09/11/2024 11:10:14 09/11/19 25 09/11/2024 COMP. METAB OLIC PANEL (14) potassium 3.9 mmol/ L 3.5-5. 2 normal Not Available [facility] ([facility]) [address] [place], [address], 09/11/2024 11:10:14 09/11/19 25 09/11/2024 COMP. METAB OLIC PANEL (14) chloride 105 mmol/ L 96-106 normal Not Available [facility] ([facility]) [address] [place], [address], 09/11/2024 11:10:14 09/11/19 25 09/11/2024 COMP. METAB OLIC PANEL (14) carbon dioxide, total 18 mmol/ L 20-29 below low normal Not Available [facility] ([facility]) [address] [place], [address], 09/11/2024 11:10:14 09/11/19 25 09/11/2024 COMP. METAB OLIC PANEL (14) calcium 9.1 mg/dL 8.7-10 .2 normal Not Available [facility] ([facility]) [address] [place], [address], 09/11/2024 11:10:14 09/11/19 25 09/11/2024 COMP. METAB OLIC PANEL (14) protein, total 6.5 g/dL 6.0-8. 5 normal Not Available [facility] ([facility]) [address] [place], [address], 09/11/2024 11:10:14 09/11/19 25 09/11/2024 COMP. METAB OLIC PANEL (14) albumin 4.2 g/dL 3.9-4. 9 normal Not Available [facility] ([facility]) [address] [place], [address], 09/11/2024 11:10:14 09/11/19 25 09/11/2024 COMP. METAB OLIC PANEL (14) globulin, total 2.3 g/dL 1.5-4. 5 Not Available [facility] ([facility]) [address] [place], [address], 09/11/2024 11:10:14 09/11/19 25 09/11/2024 COMP. METAB OLIC PANEL (14) bilirubin, total <0.2 mg/dL 0.0-1. 2 Not Available [facility] ([facility]) [address] [place], [address], 09/11/2024 11:10:14 09/11/19 25 09/11/2024 COMP. METAB OLIC PANEL (14) alkaline phosphatase 83 IU/L 44-121 normal Not Available [facility] ([facility]) [address] [place], [address], 09/11/2024 11:10:14 09/11/19 25 09/11/2024 COMP. METAB OLIC PANEL (14) AST (SGOT) 15 IU/L 0-40 normal Not Available [facility] ([facility]) [address] [place], [address], 09/11/2024 11:10:14 09/11/19 25 09/11/2024 COMP. METAB OLIC PANEL (14) ALT (SGPT) 17 IU/L 0-32 normal Not Available [facility] ([facility]) [address] [place], [address], 09/11/2024 11:10:14 09/11/19 25 09/11/2024 LIPID PANEL cholesterol, total 218 mg/dL 100-19 9 above high normal Not Available [facility] ([facility]) [address] [place], [address], 09/11/2024 11:10:15 09/11/19 25 09/11/2024 LIPID PANEL triglyceride s 586 mg/dL 0-149 alert high Not Available [facility] ([facility]) [address] [place], [address], 09/11/2024 11:10:15 09/11/19 25 09/11/2024 LIPID PANEL HDL cholesterol 32 mg/dL >39 below low normal Not Available [facility] ([facility]) [address] [facility], [place], [address], 09/11/2024 11:10:15 09/11/19 25 09/11/2024 LIPID PANEL VLDL cholesterol megan 96 mg/dL 5-40 above high normal Not Available [facility] ([facility]) [address] [facility], [place], [address], 09/11/2024 11:10:15 09/11/19 25 09/11/2024 LIPID PANEL LDL chol calc ([facility]) 90 mg/dL 0-99 Not Available [facility]) [address] [facility], [place], [address], 09/11/2024 11:10:15 09/11/19 25 09/11/2024 LIPID PANEL LDL calc comment: TICKET SELLER Not Available [facility] ([facility]) [address] [facility], [place], [address], 09/11/2024 11:10:15 09/11/19 25 09/11/2024 VITAM IN D, 25-HY DROXY vitamin D, 25-hydroxy 30.1 NG/mL 30.0-1 00.0 Vitam in D defic iency has been defin ed by the Insti tute of Medic ine and an Endoc rine Socie ty pract ice guide line as a level of serum 25-OH vitam in D less than 20 ng/mL (1,2) . The Endoc rine Socie ty went on to furth er defin e vitam in D insuf ficie ncy as a level betwe en 21 and 29 ng/mL (2). 1. IOM (Inst itute of Medic ine). 2010. Dieta ry refer ence elías es for calci um and D. Michael simmons [place]: The Natio nal [facility] Press . 2. Panda mohamud [place], Isauro kelly [place], Annetta off-F errar i HUBER, et al. Evalu ation , treat ment, and preve ntion of vitam in D defic iency : an Endoc rine Socie ty clini megan pract ice guide line. JCEM. 2010; 967) :1911 -30. Not Available [facility] ([facility]) [address], [place], [address], 09/11/2024 11:10:15 09/11/19 25 09/20/2024 COMPL IANCE DRUG GEOFF SIS, UR summary report (summary) FINAL ===== ===== ===== ===== ===== ===== ===== ===== ===== ===== ===== ===== ===== === TOXAS SURE COMP DRUG GEOFF SIS,U R ===== ===== ===== ===== ===== ===== ===== ===== ===== ===== ===== ===== ===== === Test Resul t Flag Units Drug Prese nt Bupro pion PRESE NT [place] xybup ropio n PRESE NT [place] xybup ropio n is an expec myriam metab olite of bupro pion. ===== ===== ===== ===== ===== ===== ===== ===== ===== ===== ===== ===== ===== === Test Resul t Flag Units Ref Range Creat inine 187 mg/dL >=20 ===== ===== ===== ===== ===== ===== ===== ===== ===== ===== ===== ===== ===== === Decla red Medic ation s: Medic ation list was not provi ded. ===== ===== ===== ===== ===== ===== ===== ===== ===== ===== ===== ===== ===== === For stanley guzman consu ltati on, pleas e call . ===== ===== ===== ===== ===== ===== ===== ===== ===== ===== ===== ===== ===== === Not Available [facility] ([facility]) [address] [place], [address], 09/20/2024 23:06:48 09/11/1909/20/2024 COMPL IANCE DRUG GEOFF SIS, UR pdf . Not Available [facility] ([facility]) [address] [place], [address], 09/20/2024 23:06:48 09/17/19 25 09/17/2024 JIMMY+L IPASE amylase 46 U/L 31-110 normal Not Available [facility] ([facility]) [address] [facility], [place], [address], 09/17/2024 11:10:37 09/17/19 25 09/17/2024 JIMMY+L IPASE lipase 25 U/L 14-72 normal Not Available [facility] ([facility]) [address] [place], [address], 09/17/2024 11:10:37 09/18/19 25 09/17/2024 HbA1c (hemo globi n A1c), blood HbA1C 5.1 % Not Available [address], [place], [address], 09/13/2024 08:23:40 Result Notes None recorded. Problems Name Problem SNOMED Code Status Onset Date Resolution Date Notes Provider Name and Address Organization Details Recorded Time Human papilloma virus infection 008601505 Completed 03/12/2019 Sayda Villavicencio, [employer]ULATING SUPER[employer]OR [address], [place], [address] , [place] - [facility] 9 09:07:38 care status 592624895 Active Oralia vega, [place] - [facility] 3 10:20:12 Delivery normal 79692559 Active Oralia vega, [place] - [facility] 3 10:20:12 Scoliosis deformity of spine 685226930 Active 2015 Oralia Zacarias null, [place] - [facility] 3 10:20:12 Hyperlipid emia 13818665 Completed 201603/12/2019 Sayda Villavicencio, TABULATING SUPERVISOR [address], [place], [address] , [place] - [facility] 9 09:06:53 Obesity 896520751 Active 2016 Oralia vega, [place] - [facility] 3 10:20:12 Gastroesop hageal reflux disease 743219261 Completed 201703/12/2019 Sayda Villavicencio, FALGUNI [address], [place], [address] , [place] - [facility] 9 09:07:58 Mixed hyperlipid emia 063198808 Active 2017 Oralia vega, [place] - [facility] 3 10:20:12 Depressive disorder 74199467 Active 2017 Oralia vega, [place] - [facility] 3 10:20:12 Vitamin D deficiency 84018972 Active 2018 Oralia vega, [place] - [facility] 3 10:20:12 Acid reflux 696343130 Active 2021 Oralia vega, [place] - [facility] 3 10:20:12 Anxiety 60961262 Active 2021 Oralia Zacarias null, [place] - [facility] 3 10:20:12 Break-thro ugh bleeding 81881346 Active 2021 Oralia vega, [place] - [facility] 3 10:20:12 Chronic constipati on 896891879 Active 2021 Oralia vega, [place] - [facility] 3 10:20:12 Family history of malignant neoplasm of ovary 633550387 Active 2021 Oralia vega, [place] - [facility] 3 10:20:12 Lyme disease 50504607 Active 2022 Oralia vega, [place] - [facility] 3 10:20:12 Problem Notes None recorded. Procedures Surgical History Date Name Laterality Status Provider Name and Address Organization Details Recorded Time 023 endoscopy and biopsy of upper gastrointestinal tract completed Yamile Ruelas [place] - [facility] 01/07/2023 08:40:43 023 IV Infusion completed Oralia Zacarias [place] - [facility] 05/28/2022 17:04:57 022 Date of Last Pap Smear completed Sayda Villavicencio, TABULATING SUPERVISOR [address], [place], [address] [place] - [facility] 08/10/2021 08:28:41 021 Medication Reconcilliation completed Tammie Huddleston [place] - [facility] 09/22/2020 13:54:40 014 Tubal Ligation completed Dianejaxson Davis [place] - [facility] 02/27/2017 12:44:18 011 Colposcopy completed Diane Andrus [place] - [facility] 02/27/2017 12:42:07 011 Colposcopy completed Diane Andrus [place] - [facility] 02/27/2017 12:43:49 009 tonsilectomy/adenoi ds completed Magi Laurent [place] - [facility] 03/10/2018 09:13:35 993 Appendectomy completed Magi Laurent [place] - [facility] 01/02/2017 14:23:54 Imaging Results None recorded. Procedure Notes None recorded. Medical Equipment None Reported. Allergies Allergen ID Allergen Name Allergen Category Reaction Reaction Severity Criticality Documentation Date Start Date Code Code System Note Provider Name and Address Organization Details Recorded Time 914252 atorvasta tin medicatio n edema Not available Not available 09/30/2018 73626 RxNorm pain in legs Rachna Smiley g[place], [place] - [facility] 9 14:28:04 Medications Name Sig Start Date Stop Date Status Note LastModified by Organization Details LastModified Time Prometriu m 200 mg capsule take 1 capsule by oral route once a day (at bedtime) 07/09 completed Prometri um 200 mg oral capsule; Recorded Status: Recorded on: 05/24/19 14 11:29AM; Disconti nued Status: Disconti nued on: 07/09/19 14 1:52PM;U ser: [email or web address]; Printed: 05/24/19 14 Not Available Not Available Not Available cyclobenz aprine 10 mg tablet take 1 tablet (10 mg) by oral route 3 times per day for 30 days 11/26 completed cycloben zaprine 10 mg oral tablet;R ecorded Status: Recorded on: 06/06/19 15 1:58PM;D iscontin ued Status: Disconti nued on: 11/27/19 16 9:06AM;U ser: [email or web address] renteria;Est. Completi on: 07/06/19 15;Print ed: 06/06/19 15 Not Available Not Available Not Available amoxicill in 500 mg capsule TAKE 1 CAPSULE BY MOUTH THREE TIMES DAILY 03/14 completed Not Available Not Available Not Available fluconazo le 100 mg tablet TAKE ONE TABLET NOW. MAY REPEAT IN 72 HOURS (3 DAYS) IF SYMPTOMS PERSIST. 05/14 completed Not Available Not Available Not Available atorvasta tin 40 mg tablet TAKE ONE TABLET BY MOUTH EVERY DAY for 90 days 12/07 completed Not Available Not Available Not Available buspirone 5 mg tablet TAKE ONE TABLET BY MOUTH TWICE DAILY NEEDED 08/29 completed Not Available Not Available Not Available bupropion HCl SR 150 mg tablet,12 hr sustained -release TAKE ONE TABLET BY MOUTH TWICE DAILY active Not Available Not Available No t Available prednison e 10 mg tablet TAKE ONE TABLET BY MOUTH EVERY DAY FOR 5 DAYS 10/18 completed Not Available Not Available Not Available doxycycli ne hyclate 100 mg capsule TAKE ONE CAPSULE BY MOUTH TWICE DAILY FOR FOURTEEN DAYS 09/17 completed Not Available Not Available Not Available atorvasta tin 20 mg tablet TAKE ONE TABLET BY MOUTH EVERY DAY 08/05 completed Not Available Not Available Not Available triazolam 0.25 mg tablet TAKE ONE TABLET BY MOUTH AT BEDTIME THEN TAKE ONE TABLET ONE hour BEFORE dental appointm ent THEN bring third TABLET with you 03/14 completed Not Available Not Available Not Available ibuprofen 800 mg tablet TAKE 1 TABLET BY MOUTH THREE TIMES DAILY WITH FOOD 01/14 completed Not Available Not Available Not Available Lidocaine Viscous 2 % mucosal solution SWISH AND SPIT 15 ML OR APPLY TO AFFECTED AREA WITH COTTON SWAB BY MOUTH EVERY 2 HOURS NEEDED FOR PAIN 03/14 completed Not Available Not Available Not Available fluconazo le 150 mg tablet TAKE ONE TABLET BY MOUTH ONCE a DAY FOR 3 DAYS active Not Available Not Available No t Available ketotifen 0.025 % (0.035 %) eye drops 02/27 completed Not Available Not Available Not Available clarithro mycin 500 mg tablet Take 1 tablet every 12 hours by oral route for 14 days. 12/29 completed Not Available Not Available Not Available hydrocodo ne 5 mg-acetam inophen 325 mg tablet 01/02 completed Not Available Not Available Not Available ondansetr on HCl 4 mg tablet 12/07 completed Not Available Not Available Not Available prednison e 20 mg tablet TAKE ONE TABLET BY MOUTH TWICE DAILY FOR 5 DAYS 02/12 completed Not Available Not Available Not Available dexametha sone 6 mg tablet TAKE ONE TABLET BY MOUTH ONCE DAILY FOR 7 DAYS 08/14 completed Not Available Not Available Not Available metronida zole 500 mg tablet Take 1 tablet by mouth 2 times daily for 7 days 07/18 completed Not Available Not Available Not Available phentermi ne 37.5 mg tablet TAKE ONE TABLET BY MOUTH EVERY DAY active Not Available Not Available No t Available omeprazol e 40 mg capsule,d elayed release TAKE ONE CAPSULE BY MOUTH ONCE Daily 01/29 completed Not Available Not Available Not Available bupropion HCl SR 100 mg tablet,12 hr sustained -release TAKE ONE TABLET BY MOUTH EVERY DAY 08/29 completed Not Available Not Available Not Available amoxicill in 500 mg tablet Take 1 tablet twice a day by oral route for 14 days. 12/29 completed Not Available Not Available Not Available Vitamin tablet take 1 tablet by oral route once daily 03/16 completed Vitamin oral tablet;R ecorded Status: Recorded on: 05/21/19 14 10:05AM; Disconti nued Status: Disconti nued on: 03/16/20 14 10:53AM; User: herbie Meeksti on: Pregnanc y - ([id number].[id number]) Not Available Not Available Not Available oxycodone -acetamin ophen 5 mg-325 mg tablet TAKE 1 TABLET BY MOUTH EVERY 6 TO 8 HOURS NEEDED 03/14 completed Not Available Not Available Not Available ofloxacin 0.3 % ear drops instill 10 drops in LEFT ear daily 12/25 completed Not Available Not Available Not Available Metrogel Vaginal 0.75 % (37.5 mg/5 gram) insert 1 applicat orful (37.5 mg) by vaginal route once daily at bedtime for 5 days 11/27 completed Metrogel Vaginal 0.75 % vaginal gel;Dmitry rded Status: Recorded on: 09/20/19 12 9:28AM;D iscontin ued Status: Disconti nued on: 11/28/19 12 10:17AM; User: saul Soto on: 09/25/19 12;Print ed: 09/20/19 12 Not Available Not Available Not Available prednisol one acetate 1 % eye drops,[employer] USE one rop in THE affected eye FOUR times PER DAY FOR ONE WEEK AND THEN 2 times PER DAY FOR 2 WEEKS 01/29 completed Not Available Not Available Not Available omeprazol e 10 mg capsule,d elayed release TAKE two caps daily. 11/15 completed Not Available Not Available Not Available Depo-Prov era 150 mg/mL intramusc ular suspensio n inject 150 mg by intramus cular route every 3 months 06/06 completed Depo-Pro vera 150 mg/mL intramus cular suspensi on;comme nt: had tubal;Re corded Status: Recorded on: 02/16/20 14 1:49PM;D iscontin ued Status: Disconti nued on: 06/06/19 15 1:41PM;U ser: [email or web address] ;Indicat ion: Pregnanc y Contrace ption - (18.V259 00);Prin myriam: 02/16/20 14 Not Available Not Available Not Available Zoloft 50 mg tablet take 1/2 tablet by mouth daily x 6 days, then take 1 tablet by mouth daily 02/15 completed Zoloft 50 mg oral tablet;R ecorded Status: Recorded on: 01/12/20 14 10:05AM; Disconti nued Status: Disconti nued on: 02/16/20 14 1:36PM;U ser: [email or web address] ;Printed : 01/12/20 14 Not Available Not Available Not Available amitripty line 10 mg tablet take 1 tablet by oral route once a day (at bedtime) for 30 days 02/04 completed amitript yline 10 mg oral tablet;R ecorded Status: Recorded on: 12/01/19 11 1:45PM;D iscontin ued Status: Disconti nued on: 02/05/20 11 10:24AM; User: Han Soto on: 01/30/20 11;Print ed: 12/01/19 11 Not Available Not Available Not Available meclizine 25 mg tablet take 1 tablet (25 mg) by oral route once daily as needed for 14 days 02/20 completed meclizin e 25 mg oral tablet;R ecorded Status: Recorded on: 02/07/20 11 4:22PM;D iscontin ued Status: Disconti nued on: 02/21/20 11 9:04AM;U ser: [email or web address];Hector stBandar Completi on: 02/21/20 11;Indic ation: Vertigo - (16.7804 00);Prin myriam: 02/07/20 11 Not Available Not Available Not Available cephalexi n 500 mg capsule take one capsule TWICE DAILY FOR SEVEN DAYS 10/17 completed Not Available Not Available Not Available Prozac 20 mg capsule take 1 capsule (20 mg) by oral route once daily for 30 days 11/17 completed Prozac 20 mg oral capsule; Recorded Status: Recorded on: 11/28/19 12 10:43AM; Disconti nued Status: Disconti nued on: 11/18/19 13 1:40PM;U ser: [email or web address];E st. Completi on: 02/26/20 12;Print ed: 11/28/19 12 Not Available Not Available Not Available buspirone 10 mg tablet TAKE ONE TABLET BY MOUTH THREE TIMES DAILY active Not Available Not Available No t Available promethaz ine 25 mg tablet TAKE 1 TABLET BY MOUTH EVERY 6 HOURS NEEDED 03/14 completed Not Available Not Available Not Available omeprazol e 20 mg capsule,d elayed release TAKE ONE CAPSULE BY MOUTH DAILY 11/15 completed Not Available Not Available Not Available etodolac 400 mg tablet Take 1 tablet twice a day by oral route for 10 days. 06/21 completed Not Available Not Available Not Available hydrochlo rothiazid e 25 mg tablet TAKE ONE TABLET BY MOUTH EVERY DAY 04/23 completed Not Available Not Available Not Available Imitrex 100 mg tablet take 1 tablet by oral route once with fluids as after the onset of a migraine attack;m ay repeat after 2 hours if headache returns 12/21 completed Imitrex 100 mg oral tablet;P rescribe Status: Prescrib ed on: 12/06/19 16 9:16AM;D iscontin ued Status: Disconti nued on: 12/22/19 16 2:30PM;U ser: [email or web address]; Est. Completi on: 12/31/19 16;Indic ation: Migraine - (06.3469 00);Phar Stella fied: 12/06/19 16 9:16AM Not Available Not Available Not Available ibuprofen 600 mg tablet take 1 tablet (600 mg) by oral route 3 times per day with food for 30 days 11/13 completed ibuprofe n 600 mg oral tablet;R ecorded Status: Recorded on: 04/30/20 10 11:02AM; Disconti nued Status: Disconti nued on: 11/14/19 11 8:56AM;U ser: [email or web address];E st. Completi on: 05/30/19 11;Print ed: 04/30/20 10 Not Available Not Available Not Available methylpre dnisolone 4 mg tablets in a dose pack TAKE DIRECTED ON PACKAGE 03/14 completed Not Available Not Available Not Available Vitamin D2 1,250 mcg (50,000 unit) capsule TAKE ONE CAPSULE BY MOUTH WEEKLY 01/29 completed Not Available Not Available Not Available Terazol 7 0.4 % vaginal cream insert 1 applicat orful by vaginal route once daily at bedtime for 7 days 07/09 completed Terazol 7 0.4 % vaginal cream;Re corded Status: Recorded on: 07/02/19 14 10:54AM; Disconti nued Status: Disconti nued on: 07/09/19 14 1:52PM;U ser: [email or web address];Es t. Completi on: 07/09/19 14;Indic ation: Vulvovag inal Candidia sis - ();Prin myriam: 07/02/19 14 Not Available Not Available Not Available brompheni ramine-ps eudoephed rine-DM 2 mg-30 mg-10 mg/5 mL oral syrup Take FIVE ML by MOUTH every 4-6 hours as needed NEEDED 09/22 completed Not Available Not Available Not Available naproxen 500 mg tablet Take 1 tablet twice a day by oral route. 02/27 completed Not Available Not Available Not Available amoxicill in 875 mg-potass ium clavulana te 125 mg tablet TAKE ONE TABLET BY MOUTH TWICE DAILY - take with food 09/22 completed Not Available Not Available Not Available Inderal LA 60 mg capsule,e xtended release one cap daily 02/27 completed Inderal LA 60 mg oral capsule, extended release 24 hr;Recor ded Status: Recorded on: 12/22/19 16 2:30PM;U ser: [email or web address]; Indicati on: Headache - (784.0); Printed: 12/27/19 16 Not Available Not Available Not Available amoxicill in 500 mg-potass ium clavulana te 125 mg tablet TAKE ONE TABLET BY MOUTH TWICE DAILY FOR 10 DAYS 10/18 completed Not Available Not Available Not Available Vitamin 27 mg iron-0.8 mg tablet take 1 tablet by oral route once daily 11/27 completed Vitamin 27-0.8 mg oral tablet;R ecorded Status: Recorded on: 03/04/20 11 9:43AM;D iscontin ued Status: Disconti nued on: 11/28/19 12 10:17AM; User: [email or web address] ;Indicat ion: Pregnanc y - (18.V222 00) Not Available Not Available Not Available azithromy damion 500 mg tablet TAKE ONE TABLET BY MOUTH ONCE DAILY FOR 7 DAYS 08/14 completed Not Available Not Available Not Available Ortho Tri-Cycle n LO (28) 0.18 mg/0.215 mg/0.25 mg-25 mcg tablet take 1 tablet by oral route once daily for 30 days 05/21 completed Ortho Tri-Cycl en Lo (28) 0.18/0.2 15/0.25 mg-25 mcg oral tablet;P rescribe Status: Prescrib ed on: 12/05/19 13 4:14PM;D iscontin ued Status: Disconti nued on: 05/21/19 14 10:05AM; User: [email or web address] ; Completi on: 04/03/20 13;Indic ation: Pregnanc y Contrace ption - (18.V259 00);Phar [email or web address] fied: 12/05/19 13 4:14PM Not Available Not Available Not Available moxifloxa damion 0.5 % eye drops instill ONE drop TO THE operativ e eye FOUR TIMES DAILY as directed 01/29 completed Not Available Not Available Not Available ketorolac 0.4 % eye drops instill one drop TO THE affected eye FOUR times PER DAY 01/29 completed Not Available Not Available Not Available bupropion HCl XL 300 mg 24 hr tablet, extended release Take 1 tablet by mouth daily 08/14 completed Not Available Not Available Not Available bupropion HCl XL 150 mg 24 hr tablet, extended release Take 1 tablet by mouth daily 02/11 completed Not Available Not Available Not Available fenofibra te micronize d 48 mg tablet Take 1 tablet every day by oral route. active Not Available Not Available No t Available chlorhexi dine gluconate 0.12 % mouthwash RINSE MOUTH WITH 1/2 OUNCE (15ML) TWICE DAILY FOR 2 MINUTES THEN SPIT OUT 03/14 completed Not Available Not Available Not Available 27 mg iron-0.8 mg tablet take 1 tablet by oral route once daily 11/27 completed 27-0.8 mg oral tablet;R ecorded Status: Recorded on: 02/21/20 11 9:56AM;D iscontin ued Status: Disconti nued on: 11/28/19 12 10:17AM; User: [email or web address] Mcdaniel ion: Pregnanc y - (18.V222 00) Not Available Not Available Not Available fenofibra te nanocryst allized 48 mg tablet TAKE ONE TABLET BY MOUTH EVERY DAY active Not Available Not Available No t Available cholecalc iferol (vitamin D3) 1,250 mcg (50,000 unit) capsule TAKE ONE CAPSULE BY MOUTH ONCE A WEEK active Not Available Not Available No t Available levocetir izine 5 mg tablet TAKE ONE TABLET BY MOUTH DAILY 12/18 completed Not Available Not Available Not Available fenofibra te 54 mg tablet TAKE ONE TABLET BY MOUTH EVERY DAY active Not Available Not Available No t Available Vitamin D3 50 mcg (2,000 unit) capsule Take 1 capsule every day by oral route. 01/29 completed Not Available Not Available Not Available Linzess 145 mcg capsule TAKE ONE CAPSULE BY MOUTH EVERY DAY 05/15 completed Not Available Not Available Not Available Fioricet 50 mg-300 mg-40 mg capsule take 1 capsule by oral route every 4 hours as needed 03/25 completed Fioricet 50-300-4 0 mg oral capsule; Recorded Status: Recorded on: 12/22/19 16 2:30PM;U ser: [email or web address]; Jeannati on: Headache - (784.0); Printed: 12/27/19 16 Not Available Not Available Not Available Wegovy 0.25 mg/0.5 mL subcutane ous pen injector Inject 0.25 mg every week by subcutan eous route. 09/10 completed Not Available Not Available Not Available Vitals Date Recorded Body height Body mass index (BMI) Body weight Heart rate Oxygen saturation Oxygen saturation in Arterial blood by Pulse oximetry Respiratory rate Pain severity - 0-10 verbal numeric rating [Score] - Reported Systolic And Diastolic Provider Name and Address Organization Details Last Updated DateTime 5 160.02 cm 33 kg/m2 34982.9 8 g 99 /min 98 % 98 % 18 /min 0 118/72 mm[Hg] Oralia FIGUEROA - [facility] 5 09:59:48 Date Recorded Body height Body mass index (BMI) Body weight Body temperature Heart rate Oxygen saturation Oxygen saturation in Arterial blood by Pulse oximetry Respiratory rate Pain severity - 0-10 verbal numeric rating [Score] - Reported Systolic And Diastolic Provider Name and Address Organization Details Last Updated DateTime 5 160.02 cm 34.5 kg/m2 40809.5 1 g 98 [degF] 84 /min 98 % 98 % 20 /min 0 122/82 mm[Hg] Oralia Zacarias [place] - [facility] 5 08:17:48 Date Recorded Body height Provider Name an d Address Organization Details Last Updated DateTime 09/16/2024 160.02 cm Oralia Zacarias [place] - [facility] 0 09/16/2024 15:00:03 Date Recorded Body height Body mass index (BMI) Body weight Respiratory rate Pain severity - 0-10 verbal numeric rating [Score] - Reported Oxygen saturation Oxygen saturation in Arterial blood by Pulse oximetry Heart rate Systolic And Diastolic Provider Name and Address Organization Details Last Updated DateTime 5 160.02 cm 34.2 kg/m2 05324.3 3 g 18 /min 0 98 % 98 % 68 /min 118/76 mm[Hg] Oralia Zacarias [place] - [facility] 5 08:48:36 Date Recorded Body height Respiratory rate Body mass index (BMI) Body weight Heart rate Oxygen saturation Oxygen saturation in Arterial blood by Pulse oximetry Body temperature Systolic And Diastolic Provider Name and Address Organization Details Last Updated DateTime 4 160.02 cm 18 /min 32.6 kg/m2 29557.4 g 84 /min 97 % 97 % 97.8 [degF] 124/76 mm[Hg] Yamile Ruelas [place] - [facility] 4 10:28:29 Social History Question Answer Notes LastModified by Organizat ion Details LastModified Time Tobacco Smoking Status Never Smoker Olivia Smith gary [place] - [facility] 03/25/2016 12:51:26 Do You Have An Advance Directive? No Information not available 03/10/2018 Do You Wear A Helmet When Biking? No [email or web address] Information not available 12/25/2020 Are You Blind Or Do You Have Difficulty Seeing? No [email or web address] Information not available 12/25/2020 Is Blood Transfusion Acceptable In An Emergency? Yes [email or web address] Information not available 03/10/2018 What Is Your Level Of Caffeine Consumption? Moderate [email or web address] Information not available 08/06/2021 How Much Tobacco Do You Chew? None Information not available 02/28/2017 In The 14 Days Before Symptom Onset, Have You Had Close Contact With A Laboratory-confir med COVID-19 While That Case Was Ill? No [email or web address] Information not available 08/06/2021 In The 14 Days Before Symptom Onset, Have You Had Close Contact With A Person Who Is Under Investigation For COVID-19 While That Person Was Ill? No [email or web address] Information not available 08/06/2021 Have You Been To An Area Known To Be High Risk For COVID-19? No [email or web address] Information not available 08/06/2021 Are You Deaf Or Do You Have Serious Difficulty Hearing? No [email or web address] Information not available 01/02/2017 What Type Of Diet Are You Following? REGULAR Information not available 02/27/2017 Which Illicit Or Recreational Drugs Have You Used? None [email or web address] Information not available 03/10/2018 Have You Processed Blood Or Body Fluids From An Ebola Virus Disease Patient Without Appropriate PPE? No Information not available 08/06/2021 Do You Reside In Or Have You Traveled To An Area Where Ebola Virus Transmission Is Active? No [email or web address] Information not available 08/06/2021 What Is The Highest Grade Or Level Of School You Have Completed Or The Highest Degree You Have Received? [id number] [email or web address] Information not available 03/10/2018 How Many Days Of Moderate To Strenuous Exercise, Like A Brisk Walk, Did You Do In The Last 7 Days? 1 [email or web address] Information not available 12/25/2020 On Those Days That You Engage In Moderate To Strenuous Exercise, How Many Minutes, On Average, Do You Exercise? 1 [email or web address] Information not available 12/25/2020 Swimming/diving No [email or web address] Informati on not available 12/25/2020 Have There Been Any Changes To Your Family Or Social Situation? No [email or web address] Information no t available 08/06/2021 How Hard Is It For You To Pay For The Very Basics Like Food, Housing, Medical Care, And Heating? Not Very Hard [email or web address] Information not available 08/06/2021 What Is The Fluoride Status Of Your Home? Fluoridated [email or web address] Information not available 08/06/2021 Hard Of Hearing Or Deaf In One Or Both Ears? No Information not available 12/25/2020 Have You Recently Or Are You Planning To Travel To An Area With Zika Virus? No [email or web address] Information not available 08/06/2021 Legally Blind In One Or Both Eyes? No [email or web address] Information no t available 12/25/2020 Live Alone Or With Others? With Others [email or web address] Information not available 12/25/2020 Do You Have A Medical Power Of Recreation Director? No [email or web address] Information not available 08/06/2021 What Was The Date Of Your Most Recent Tobacco Screening? 09/10/2024 [email or web address] Information not available 09/10/2024 How Many Children Do You Have? 4 [email or web address] Information not available 01/02/2017 Performs Monthly Self-breast Exam? No Information no t available 12/25/2020 Do You Use Protection During Sex? Always [email or web address] Information not available 03/12/2019 Do You Use Protection Against STDs? No [email or web address] Information not available 08/06/2021 What Is Your Relationship Status? Information not available 02/27/2017 Seat Belts Used Routinely Yes [email or web address] Information not available 12/25/2020 Are You Sexually Active? Yes Information not available 12/25/2020 Smoke Alarm In Home Yes [email or web address] Information not available 12/25/2020 Do You Have Smoke And Carbon Monoxide Detectors In Your Home? Yes [email or web address] Information not available 08/06/2021 Are You Passively Exposed To Smoke? No [email or web address] Information no t available 08/06/2021 How Much Tobacco Do You Smoke? No Information not available 02/28/2017 General Stress Level Low [email or web address] Information not available 12/25/2020 Do You Use Sunscreen Routinely? No [email or web address] Information not available 03/10/2018 Has Tobacco Cessation Counseling Been Provided? No Information not available 08/06/2021 How Many Years Have You Smoked Tobacco? 0 Information not available 02/28/2017 Do You Have Difficulty Walking Or Climbing Stairs? No [email or web address] Information not available 12/25/2020 What Contraceptive Method Was Reported At Start Of This Visit? Female Sterilization [email or web address] Information not available 08/06/2021 Do You Want To Talk About Contraception Or Prevention During Your Visit Today? No - I Am Already Using Contraception [email or web address] Information not available 08/06/2021 Do You Have Any Future Plans To Get ? No, I Don't Want To Become [email or web address] Information not available 08/06/2021 Sex: Female Functional Status Question Answer Note LastModified by Organizat ion Details LastModified Time Do you or have you ever used smokeless tobacco? Never used smokeless tobacco [email or web address] Information not available 03/12/2019 Are you currently employed? No Information not available 02/28/2017 Do you have transportation difficulties? No [email or web address] Information not available 08/06/2021 Urinary incontinence assessment performed? Yes [email or web address] Information not available 12/25/2020 Are you able to care for yourself? Yes [email or web address] Information n ot available 02/27/2017 Do you have difficulty dressing or bathing? No [email or web address] Information not available 12/25/2020 Do you or have you ever used e-cigarettes or vape? Never used electronic cigarettes [email or web address] Information not available 03/12/2019 What is your exercise level? Occasional Information not available 02/27/2017 Do you use any illicit or recreational drugs? No [email or web address] Information not available 08/06/2021 Do you or have you ever used any other forms of tobacco or nicotine? No [email or web address] Information not available 08/06/2021 What is your level of alcohol consumption? None Information not available 02/28/2017 What is your status? Not [email or web address] Information no t available 08/06/2021 Are you able to walk? YESWOREST [email or web address] Information not available 12/25/2020 Do you have difficulty doing errands alone? No [email or web address] Information not available 12/25/2020 What is your occupation? housewife [email or web address] Information not available 09/22/2018 Mental Status Question Answer Note LastModified by Organizat ion Details LastModified Time Do you feel stressed (tense, restless, nervous, or anxious, or unable to sleep at night)? [id number] [email or web address] Information not available 08/06/2021 Do you have difficulty concentrating, remembering or making decisions? No Information no t available 12/25/2020 Family History Relationship Description Onset Age of this Age Resolved Age Notes LastModified by Organization Details LastModified Time Maternal Grandmother Heart disease [email or web address] Not available 2015 12:51:09 Mother Hypothyroidi sm [email or web address] Not available 2020 15:36:51 Mother Chronic obstructive pulmonary disease [email or web address] Not available 03/10 09:12:18 Mother Diabetes mellitus [email or web address] Not available 2018 10:04:50 Paternal Grandmother Family history of malignant neoplasm of ovary 90 90 Not available 2016 13:34:17 Unspecified Relation Family history of malignant neoplasm of ovary 42 cousin [email or web address] Not available 08/06 13:45:32 Medical History Condition Response Pancreatitis N Other Y Atrial Fibrillation N congenital heart disease N Blood Diseases N Hyperthyroidism N Rheumatoid arthritis N Blood Transfusion N Erectile Dysfunction N amputation N Skin Lesions N Depression Y Pneumonia N Incontinence N Murmur N Edema N Alzheimer's Disease N Migraine Headaches N Tobacco Abuse N Anxiety Disorder N Hemorrhoids N Obesity Y Vision or Eye Problems Y Restless Leg Syndrome N Arthritis N Polyps N Infertility N Carpal Tunnel N Acid Reflux (GERD) Y Cancer N Varicosities N Stroke N Tendonitis N Crohn's Disease N Hypercholesterolemia N Skin Cancer N Headaches Y Fibromyalgia N Irritable Bowel Syndrome N Anal Fissure N Kidney Disease N Heart Problems N Hospitalizations Y Gallstones N Kidney or Bladder Problems N Goiter N Acne N Eating Disorder N [place]'s Esophagus N Hypertriglyceridemia N Constipation N Embolism N Vitamin B12 Deficiency N Deviated Septum N AIDS/HIV N Myocardial Infarction N Asthma N Mitral Valve Disorders N Vertigo N Hepatitis N Thyroid Cancer N Neuropathy N History of DVT N Herniated Disc N Chicken Pox Y Von Willebrands Disease N Thrombophilias N Breast Cancer N Hernia N Plantar Fasciitis N Hypothyroidism N Lung Disease N Defects or Inherited Disease N Breast Problem N Ovarian Cyst N Anesthesia Complications N Testosterone Deficiency N Head Injury/Concussion Y Interstitial Cystitis N Congenital Anomalies N Hypoglycemia N Blood clot N Vitamin D Deficiency N Cellulitis N Endometriosis N Bladder or Kidney Problems N Fracture N Schizophrenia N Panic Disorder N Concussion Y Spina Bifida N Osteoarthritis N Parkinson's Disease N Disc Protrusion N STI N Esophagitis N Angina N Thyroid Problems N GI Problems N ADD/ADHD N Anemia N Multiple Sclerosis N Abnormal PAP Y Lumbago N Mental Illness N Psychiatric Illness N Ovarian Cancer N Diabetes N Degenerative Disc Disease N Seizures/Epilepsy N Syncope N Hyperlipidemia Y Insomnia N Eczema N Abuse/Domestic Violence N Attention Deficient Disorder N Dementia N Ulcerative colitis N Cerebrovascular Disease N Depression N Guillain-[place] N Sleep Apnea N Aneurysm N Bronchitis N Heart Disease N Suicidal Ideation N Pre-Eclampsia N Hypertension N Osteoporosis N Gynecological History Statement/Question Response Abnormal Pap Yes Flow Light Date of Last Mammogram Date of LMP 09/19/2022 STIs/STDs Y Colposcopy 08/31/2010 HPV Vaccine N Duration of Flow (days) 4 Current Control Method Tubal Ligat ion Age at Menarche 11 Age at First Child 18 Last Annual Exam/Provider 08/06/21 w/ KBandar Villavicencio TABULATING SUPERVISOR Last Lipids 02/27/17 Date of Last Colonoscopy Frequency of Cycle (Q days) 28 Most Recent Bone Density Sexually Active? Y Date of Last Cervical Culture 07/09/2013 Menses Monthly N Date of Last Pap Smear 08/06/2021 Sexual Problems? N LMP Approximate Obstetrics History GPAL:G 5 P 4 0 1 4 Type Value Full Term 4 Spontaneous 1 Living 4 Total 5 Immunizations Vaccine Type Date Status Note Provider Name and Address Organization Details Recorded Time Tdap 11/19/19 14 completed Not Available [facility] 01/07/2023 01:48:11 Influenza, split virus, quadrivalent, preservative 02/28/20 17 cancelled patient objection Not Available [facility] 05/29/2019 03:54:42 Influenza, split virus, quadrivalent, preservative 08/07/19 22 cancelled patient objection Soledad Worrell, TABULATING SUPERVISOR [address], [place], [address], [place] - [facility] 08/06/2021 14:08:21 Influenza, split virus, quadrivalent, preservative 03/10/20 18 cancelled patient objection Not Available [facility] 05/29/2019 03:55:22 Influenza, split virus, quadrivalent, preservative 03/11/20 16 completed Not Available [facility] 01/07/2023 01:48:11 Influenza, split virus, quadrivalent, preservative 01/29/20 17 completed Not Available [facility] 01/07/2023 01:48:11 Influenza, split virus, quadrivalent, preservative 04/23/20 18 completed Not Available [facility] 01/07/2023 01:48:11 Influenza, split virus, quadrivalent, PF 03/12/20 19 cancelled patient objection Not Available [facility] 05/29/2019 03:56:08 Past Encounters Encounter ID Performer Location Encounter Start Date Encounter Closed Date Diagnosis/Indication Diagnosis SNOMED-CT Code Diagnosis ICD10 Code Diagnosis Note [id number] Quita White [address] [place] [address] 03/25/2016 12:38:42 03/25/2016 14:42:28 Thoracic back pain 176486167 M54.6 [id number] Quita White [address] [place] [address] 02/27/2017 10:36:19 02/27/2017 11:31:25 Active or passive immunization 098869306 Z23 Body mass index 30+ - obesity 939469939 Z68.37 Hyperlipidemia 67412949 E78.5 Fatigue 75681682 R53.83 [id number] FALGUNI Toro [employer] [address] [place] [address] [place] [id number] 02/28/2017 13:24:04 02/28/2017 14:16:29 Routine gynecologic examination done 8114572160 9101 Z01.419 Depression screening 171 121040 Z13.89 PHQ-9 completed today. Diet education 00344238 Z71.3 Counseling 478320773 Z71 .9 Exercise counsellin g. Patient encouraged to exercise 30 minutes 5 days a week. Examinatio n of blood pressure 655007666 Z01.30 Vaccine de clined by patient 2174447563 02 Z28.21 Pt declined flu vaccine today. Body mass index 30+ - obesity 197628190 Z68.38 Discussed with patient her BMI being above the advised range and diagnosis of obesity. Encourage regular physical activity and limited carbohydra te and fat, calorie controlled diet. Advised 6 month F/U with family physician to assess progress towards weight loss. Screening for malignant neoplasm of cervix 778365363 Z12.4 [id number] FALGUNI Toro [employer] [address] [facility] [place] [id number] 03/10/2018 08:52:51 03/10/2018 10:02:01 Routine gynecologic examination done 9338154203 9101 Z01.419 Depression screening 171 040128 Z13.89 PHQ-9 completed today. Diet education 23915006 Z71.3 Counseling 057132902 Z71 .82 Exercise counselreyna prieto. Patient encouraged to exercise 30 minutes 5 days a week. Examinatio n of blood pressure 495390297 Z01.30 Vaccine de clined by patient 3751603401 02 Z28.21 Pt declined flu vaccine today. Screening for malignant neoplasm of cervix 051592625 Z12.4 Patient advised that I will follow up with results. Body mass index 30+ - obesity 097583192 Z68.38 Discussed with patient her BMI being above the advised range and diagnosis of obesity. Encourage regular physical activity and limited carbohydra te and fat, calorie controlled diet. Advised 6 month F/U with family physician to assess progress towards weight loss. Depressive disorder 4458 9007 F33.8 Patient with symptoms concerning for depression . PHQ-9 score: 14. Denies SI/HI. No other safety concerns at this time. Plan to start SSRI. Discussed benefits and risks with patient and family. Follow-up as below. [id number] Quita White [employer] [facility] [address] [address] 08/04/2017 08:16:47 08/04/2017 08:55:18 Body mass index 30+ - obesity 922044345 Z68.38 Hyperlipidemia 11504764 E78.5 [id number] Quita White [employer]ULATING SUPERVIS[employer] [facility] [address] [place] [address] 10/20/2017 08:23:39 10/20/2017 08:54:22 Hyperlipidemia 77203472 E78.5 Gastroesop hageal reflux disease 233079722 K21.9 Edema of l ower extremity 480756241 R60.0 [id number] FALGUNI Toro [employer] [address] [place] [address] [place] [address] 03/12/2019 08:52:45 03/12/2019 09:45:46 Routine gynecologic examination done 1592658410 9101 Z01.419 Depression screening 171 216038 Z13.89 PHQ-9 completed today. Diet education 07698775 Z71.3 Counseling 481547976 Z71 .82 Exercise counselreyna prieto. Patient encouraged to exercise 30 minutes 5 days a week. Examinatio n of blood pressure 484830597 Z01.30 Vaccine de clined by patient 7443774544 02 Z28.21 Pt declined flu vaccine today. Screening for malignant neoplasm of cervix 289569228 Z12.4 Patient advised that I will follow up with results. Depressive disorder 6090 9007 F33.8 Patient presented for medication refill. Patient tolerating medication well at current dose without adverse effects. Refilled as below. Discussed plan with patient, who expressed understand ing. Follow up as noted below. Body mass index 30+ - obesity 268778356 Z68.36 Discussed with patient her BMI being above the advised range and diagnosis of obesity. Encourage regular physical activity and limited carbohydra te and fat, calorie controlled diet. Advised 6 month F/U with family physician to assess progress towards weight loss. Mixed hyperlipidemia 267 077141 E78.2 Managed by PCP.Patien t with known hyperlipid emia. Last lipid panel stable with elevated triglyceri storm. Patient is not taking any medication s. Lifestyle modificati ons discussed including weight loss, aerobic exercise at least 30 min/day at least 5 days per week, and a diet rich in fruit and vegetables . [id number] Cris Jauregui MD [address] [place] [address] 04/23/2018 09:55:32 04/23/2018 15:30:01 Gastroesophageal reflux disease 791625989 K21.9 Depressive disorder 9547 9007 F32.9 Administra tion of influenza vaccine 89571507 Z23 Mixed hyperlipidemia 267 242726 E78.2 Long-term drug therapy 947758728 Z79.899 Edema of l ower extremity 976606631 R60.0 [id number] FALGUNI [place] [employer] [address] [place] [address] [place] [address] 06/09/2018 09:41:05 06/09/2018 12:04:44 Depression screening 199569581 Z13.89 PHQ-9 completed today.Impr ovement from 14 to 6.Will send refills until annual exam. Depressive disorder 3548 7 F33.8 [id number] FALGUNI [place] [address] [place] [address] 09/22/2018 09:45:22 09/22/2018 11:44:03 General examination of patient 698693004 Z00.00 Exercises education, guidance, and counseling 651736786 Z71.82 Dietary ma nagement surveillance 963180797 Z71.3 Gastroesop hageal reflux disease without esophagitis 054811340 K21.9 Mixed hyperlipidemia 267 946288 E78.2 Vitamin D deficiency 347 28762 E55.9 Fatigue 01651298 R53.83 Family his tory of diabetes mellitus type 2 402834977 Z83.3 Depressive disorder 3548 7 F33.8 History of anemia 214090 002 Z86.2 [id number] Azalia Villalobos APRN [address] [place] [address] 12/07/2018 15:28:56 12/07/2018 16:39:57 General examination of patient 026943043 Z00.00 Exercises education, guidance, and counseling 094226650 Z71.82 Dietary ma nagement surveillance 421753421 Z71.3 Gastroesop hageal reflux disease without esophagitis 074202262 K21.9 Mixed hyperlipidemia 267 402446 E78.2 Vitamin D deficiency 347 11869 E55.9 Family his tory of diabetes mellitus type 2 392295982 Z83.3 Depressive disorder 3548 9007 F33.8 Body mass index 30+ - obesity 399202900 Z68.36 Epigastric pain 01316194 R10.13 [id number] Azalia Daron Wilfredo, [address] [place] [address] 12/29/2018 09:15:49 12/29/2018 10:18:59 Mixed hyperlipidemia 903008141 E78.2 General ex amination of patient 121521663 Z00.00 Exercises education, guidance, and counseling 431976761 Z71.82 Dietary ma nagement surveillance 085120463 Z71.3 Gastroesop hageal reflux disease without esophagitis 615802358 K21.9 Vitamin D deficiency 347 33888 E55.9 Family his tory of diabetes mellitus type 2 991884356 Z83.3 Depressive disorder 3548 9007 F33.8 Body mass index 30+ - obesity 147116510 Z68.36 Abdominal pain 18784528 R10.9 Screening for malignant neoplasm of breast 687185064 Z12.31 [id number] Arlene Reed [address] [place] [address] 07/27/2019 16:50:12 07/27/2019 17:29:32 Fibrous papule of face 877344013 D23.30 offered reassuranc e Melanocytic nevus 671667 001 D22.9 offered reassuranc e [id number] ANSLEY Adam [address] [place] [address] 08/14/2020 13:00:25 08/14/2020 13:49:47 Mixed hyperlipidemia 523785446 E78.2 Depressive disorder 3548 9007 F32.9 Obesity 840139094 E66.9 Vitamin D deficiency 347 76997 E55.9 Acid reflux 193045274 K2 1.9 Taking med ication for chronic disease 6357463796 88445 Z76.89 Z00.00 Loss of hair 226819899 L 65.9 [id number] Radha Dumont [address] [place] [address] 09/22/2020 13:34:50 09/22/2020 15:09:57 Postconcussion state 06040141 F07.81 Dizziness 656213276 R42 Neck pain 17807472 M54.2 Abnormal gait 29166431 R 26.9 [id number] ANSLEY Adam [address] [address] 12/25/2020 15:36:36 12/25/2020 16:23:13 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 we will see if this helps. pt will hold off on PT for now. Long-term drug therapy 676245648 Z79.899 chronic conditions are stable. gave refills. Allergic rhinitis 600915 04 J30.9 [id number] ANSLEY Adam [address] [address] 06/21/2021 11:17:49 06/21/2021 12:00:18 Depressive disorder 73964489 F33.8 pt still has some anxiety. we will add buspar. Mixed hyperlipidemia 267 818402 E78.2 Obesity 518058964 E66.9 37.6 Scoliosis deformity of spine 451294986 M41.9 stable Vitamin D deficiency 347 93376 E55.9 General ex amination of patient 500719245 Z00.00 Screening for cardiovascular system disease 864880049 Z13.6 Endocrine/ metabolic screening 009936867 Z13.228 we will get bmp in office today Screening mammography 24 689861 Z12.31 Exercises education, guidance, and counseling 738947082 Z71.82 Dietary ma nagement surveillance 007471621 Z71.3 Viral screening 88117255 4 Z11.59 Body mass index 30+ - obesity 873307915 Z68.37 Taking med ication for chronic disease 9091337850 11570 Z79.899 Screening for malignant neoplasm of cervix 194532341 Z12.4 Acid reflux 149121856 K2 1.9 pt is going to take 2 caps daily. [id number] ANSLEY Adam [address] [address] 06/27/2021 11:06:21 06/27/2021 13:15:43 Liver enzymes level above reference range 818083161 R74.8 [id number] FALGUNI Toro [employer] [address] [place] [address] [place] [address] 08/06/2021 13:39:50 08/06/2021 15:35:45 Routine gynecologic examination done 5693023768 9101 Z01.419 Depression screening 171 560373 Z13.89 PHQ-9 completed today. Diet education 86488839 Z71.3 Counseling 085077770 Z71 .82 Exercise counselreyna whyte Patient encouraged to exercise 30 minutes 5 days a week. Examinatio n of blood pressure 833466509 Z01.30 Vaccine de clined by patient 7352265002 02 Z28.21 Pt declined flu vaccine today. Screening for malignant neoplasm of cervix 419254400 Z12.4 Z11.3 Z01.419 Patient advised that I will follow up with results. Body mass index 30+ - obesity 976953172 Z68.39 Discussed with patient her BMI being above the advised range and diagnosis of obesity. Encourage regular physical activity and limited carbohydra te and fat, calorie controlled diet. Advised 6 month F/U with family physician to assess progress towards weight loss. History of tubal ligation 544029554 Z98.51 2013 [id number] ANSLEY Adam [address] [address] 08/15/2021 15:20:06 08/15/2021 16:22:50 Sinusitis 85708801 J32.9 Cough 65470688 R05.9 we will get chest xray Long-term drug therapy 612282154 Z79.899 pt did not need refills. chornic conditons are stable. Viral screening 09754062 4 Z11.52 [id number] FALGUNI Toro [employer] [address] [place] [address] [place] [address] 10/18/2021 13:45:04 10/18/2021 15:31:27 Chronic constipation 453816258 K59.09 Constipati on since 1992.Tried and failed Colace, Miralax, and metamucil. Break-thro ugh bleeding 99390362 N92.1 1, 3 day episode of BTB.Encour aged to keep a [facility]MC. Vaginal discharge 990301 006 N89.8 Reviewed the various causes of vaginal problems. Reviewed good vulvar/vag inal hygiene and ways to reduce symptoms. Advised to call if treatment is not helpful or if symptoms persist or recur. Family his tory of malignant neoplasm of ovary 635276358 Z80.41 PGM and P. cousinPamp hlet given on the Ovarian caner screening program at . Candidiasis of vagina 72 856052 B37.3 + YeastRx: Diflucan 150 mg PO q 72 hrs x 3No SA x 10 days [id number] ANSLEY Adam [address] [address] 11/15/2021 12:55:43 11/15/2021 13:14:01 Abdominal pain 90235928 R10.9 Right uppe r quadrant pain 776838461 R10.11 went over not to eat fatty foods. we will increase omeprazole to 40 mg BID. pt had ultra sound of liver in 2021. we will get hida scan. [id number] ANSLEY Adam [address] [address] 11/21/2021 10:23:33 11/21/2021 11:28:28 Abdominal pain 52769151 R10.9 improved. Right uppe r quadrant pain 828704975 R10.11 pt is waiting to hear about hida scan. Anxiety 02277916 F41.9 [id number] ANSLEY Adam [address] [address] 12/18/2021 09:45:05 12/18/2021 11:00:04 Acid reflux 286143520 K21.9 pt is going to take 2 caps daily. Anxiety 98806145 F41.9 stable Chronic constipation 236 887555 K59.09 stable Depressive disorder 3548 9007 F33.8 pt still has some anxiety. Buspar is helping. Mixed hyperlipidemia 267 109690 E78.2 we will get lipids in office. Scoliosis deformity of spine 529444436 M41.9 stable Vitamin D deficiency 347 82227 E55.9 Obesity 344843090 E66.9 37.6 Screening for malignant neoplasm of cervix 134459132 Z12.4 pt saw konrad young on 07/31. in chart. Taking med ication for chronic disease 4068745581 31624 Z79.899 chronic conditions are stable. pt did not need refills. [id number] Monse Castillo [address] [address] 03/14/2022 09:51:59 03/14/2022 11:12:23 Obesity 167316891 E66.9 Pt compliant with plan of careKasper reviewedme dication compliance discussedL ast uds: 2Control substance agreement on filemedica tion discussed with ptlow fat/carb/c alorie diet discussed Body mass index 30+ - obesity 638789441 Z68.37 Long-term drug therapy 159694355 Z79.899 Vitamin D deficiency 347 98747 E55.9 [id number] Monse Castillo [address] [address] 04/11/2022 09:56:07 04/11/2022 10:34:44 Obesity 804949368 E66.9 Pt compliant with plan of careKasper reviewedme dication compliance discussedL ast uds: 2Control substance agreement on filelow fat/carb/c alorie diet discussed [id number] Monse Castillo [address] [address] 05/09/2022 09:51:58 05/09/2022 10:31:34 Obesity 141552514 E66.9 Pt compliant with plan of careKasper reviewedme dication compliance discussedL ast uds: 2Control substance agreement on filelow fat/carb/c alorie diet discussed [id number] Monse Castillo [address] [address] 05/28/2022 14:54:15 05/28/2022 16:47:23 Pharyngitis 833881387 J02.9 Mild dehydration 6354993 119 108 E86.0 after receiving 1000ml of ns iv, hr improved and pt states she is feeling better, encourged to increase fluid intake. return for any issues Tachycardia 0265457 R00. 0 [id number] Inesmandi Castillo [address] [address] 07/18/2022 10:14:50 07/18/2022 10:51:58 Body mass index 30+ - obesity 925665194 Z68.37 Pt compliant with plan of careKasper reviewed and appropriat emedicatio n compliance discussedL ast uds: 2Control substance agreement on file Depressive disorder 3548 9007 F32.A Obesity 067784738 E66.9 Pt compliant with plan of careKasper reviewedme dication compliance discussedL ast uds: 2Control substance agreement on filelow fat/carb/c alorie diet discussed [id number] Inesmandi af[place] [address] [address] 08/29/2022 09:54:12 08/29/2022 11:05:16 Obesity 726665452 E66.9 Pt compliant with plan of careKasper reviewed and appropriat emedicatio n compliance discussedL ast uds: 2Control substance agreement on filelow fat/carb/c alorie diet discussed Mixed hyperlipidemia 267 154220 E78.2 Vitamin D deficiency 347 38604 E55.9 Anxiety 94924068 F41.9 Right uppe r quadrant pain 449862623 R10.11 [id number] Monse Castillo [address] [address] 09/17/2022 14:12:38 09/17/2022 14:32:36 Acute urinary tract infection 811369087 N39.0 [id number] Monse Castillo [address] [address] 09/20/2022 10:50:55 09/20/2022 11:05:58 Obesity 070522680 E66.9 Pt compliant with plan of careKasper reviewed and appropriat emedicatio n compliance discussedL ast uds: 2Control substance agreement on filelow fat/carb/c alorie diet discussedn ext month is a drug holiday Body mass index 30+ - obesity 211586616 Z68.32 Pt compliant with plan of careKasper reviewed and appropriat emedicatio n compliance discussedL ast uds: 2Control substance agreement on file [id number] Inesmandi Castillo [address] [address] 10/17/2022 14:50:44 10/17/2022 15:48:26 Obesity 280565283 E66.9 Pt compliant with plan of careKasper reviewed and appropriat emedicatio n compliance discussedL ast uds: 2Control substance agreement on filelow fat/carb/c alorie diet discussedn ext month is a drug holiday Muscle pain 17760523 M79 .10 Edema of l ower extremity 897582722 R60.0 [id number] Monse Silvermanafia [address] [address] 10/25/2022 09:16:54 10/25/2022 09:56:55 Malaise and fatigue 286702181 R53.81 Generalized rash 8734539 06 R21 Sore throat 414746557 J0 2.9 Vitamin D deficiency 347 85214 E55.9 Cellulitis 792576939 L03 .90 [id number] Inesmandi afia [address] [address] 11/15/2022 09:15:27 11/15/2022 10:07:50 Lyme disease 96334669 A69.20 Obesity 104257940 E66.9 Pt compliant with plan of careKasper reviewed and appropriat emedicatio n compliance discussedL ast uds: 2Control substance agreement on filelow fat/carb/c alorie diet discussedn ext month is a drug holiday Chronic constipation 236 481646 K59.09 Body mass index 30+ - obesity 564001236 Z68.30 Pt compliant with plan of careKasper reviewed and appropriat emedicatio n compliance discussedL ast uds: 2Control substance agreement on file [id number] Monse Castillo APRN [address] [address] 12/13/2022 09:43:14 12/13/2022 10:37:22 Body mass index 30+ - obesity 279688877 Z68.31 Pt compliant with plan of careKasper reviewed and appropriat emedicatio n compliance discussedL ast uds: 2Control substance agreement on file Obesity 065041022 E66.9 Pt compliant with plan of careKasper reviewed and appropriat emedicatio n compliance discussedL ast uds: 2Control substance agreement on filelow fat/carb/c alorie diet discussedn ext month is a drug holiday Lyme disease 57748264 A6 9.20 [id number] Monse Castillo APRN [address] [address] 01/14/2023 10:15:33 01/14/2023 11:31:57 Body mass index 30+ - obesity 035255698 Z68.30 Pt compliant with plan of careDivinesper reviewed and appropriat emedicatio n compliance discussedL ast uds: 2Control substance agreement on filehold adipex for 1 month due to wt gain-discu ssed diet and exercise Obesity 263909057 E66.9 Pt compliant with plan of careKasper reviewed and appropriat emedicatio n compliance discussedL ast uds: 2Control substance agreement on filelow fat/carb/c alorie diet discussed Impaired f asting glycemia 821176095 R73.01 [id number] Monse Castillo APRN [address] [address] 02/11/2023 09:22:43 02/11/2023 10:20:05 Body mass index 30+ - obesity 509074168 Z68.30 Pt compliant with plan of careKasper reviewed and appropriat emedicatio n compliance discussedL ast uds: 2Control substance agreement on filelabs next month with udsdiscuss ed diet and exercise [id number] Inesmandi Castillo [address] [address] 03/18/2023 11:13:11 03/18/2023 11:45:42 Obesity 314740405 E66.9 Pt compliant with plan of careKasper reviewed and appropriat emedicatio n compliance discussedL ast uds: 2Control substance agreement on filelow fat/carb/c alorie diet discussed Body mass index 30+ - obesity 238810730 Z68.31 Pt compliant with plan of careKasper reviewed and appropriat emedicatio n compliance discussedL ast uds: 2Control substance agreement on filelabs next month with udsdiscuss ed diet and exercise HIV screen ing declined 1973574127 08079 Z53.20 [id number] Monse Castillo [address] [address] 05/15/2023 09:23:03 05/15/2023 09:54:52 Obesity 805062799 E66.9 Pt compliant with plan of careKasper reviewed and appropriat emedicatio n compliance discussedL ast uds:05/15/23 Control substance agreement on filelow fat/carb/c alorie diet discussed Body mass index 30+ - obesity 777521546 Z68.31 Pt compliant with plan of careKasper reviewed and appropriat emedicatio n compliance discussedL ast uds:05/15/23 Control substance agreement on filediscus sed diet and exercise Long-term drug therapy 285227278 Z79.225 [id number] Tesfayejuanito Castillo [address] [address] 06/12/2023 09:46:58 06/12/2023 10:26:08 Body mass index 30+ - obesity 963087601 Z68.31 Pt compliant with plan of careKasper reviewed and appropriat emedicatio n compliance discussedL ast uds:05/15/23 Control substance agreement on filediscus sed diet and exercise [id number] Monse Castillo [address] [address] 07/10/2023 09:43:36 07/10/2023 10:17:44 Body mass index 30+ - obesity 367605105 Z68.31 Pt compliant with plan of careKasper reviewed and appropriat emedicatio n compliance discussedL ast uds:05/15/23 Control substance agreement on filediscus sed diet and exercise [id number] Monse Castillo [address] [address] 08/21/2023 09:52:48 08/21/2023 10:29:40 Body mass index 30+ - obesity 165101419 Z68.32 Obesity 664747318 E66.9 Pt compliant with plan of careKasper reviewed and appropriat emedicatio n compliance discussedL ast uds:05/15/23 Control substance agreement on filelow fat/carb/c alorie diet discussedh old adipex this month Vitamin D deficiency 347 05803 E55.9 [id number] Inesmandi afia [address] [address] 09/18/2023 09:38:37 09/18/2023 10:27:34 Gastroesophageal reflux disease without esophagitis 199476273 K21.9 Obesity 385511161 E66.9 Pt compliant with plan of careKasper reviewed and appropriat emedicatio n compliance discussedL ast uds:05/15/23 Control substance agreement on filelow fat/carb/c alorie diet discussed Fatigue 18835339 R53.83 check labs [id number] Inesmandi afia [address] [address] 01/30/2024 13:34:09 01/30/2024 14:36:40 Vitamin D deficiency 70838709 E55.9 Obesity 057987144 E66.9 History of Lyme disease 393687308 Z86.19 if no improvemen t will refer back to I&D [id number] Monse Castillo [address] [address] 02/17/2024 10:14:54 02/17/2024 11:32:37 Long-term drug therapy 269319324 Z79.899 Body mass index 30+ - obesity 164395830 Z68.32 Pt compliant with plan of careKasper reviewedme dication compliance discussedL ast uds:Control substance agreement on file [id number] Monse Castillo [address] [address] 03/16/2024 14:09:11 03/16/2024 15:10:50 Obesity 385073798 E66.9 Pt compliant with plan of careKasper reviewedme dication compliance discussedL ast uds:Control substance agreement on fileadipex consent on filediscus sed meddiet and exercise plan [id number] Monse Castillo [address] [address] 04/16/2024 09:55:22 04/16/2024 10:55:22 Obesity 245872163 E66.9 Pt compliant with plan of careKasper reviewedme dication compliance discussedL ast uds:Control substance agreement on fileadipex consent on filediscus sed meddiet and exercise plan [id number] Monse Castillo [address] [address] 05/14/2024 09:44:46 05/14/2024 10:28:29 Body mass index 30+ - obesity 797540345 Z68.33 Pt compliant with plan of careKasper reviewedme dication compliance discussedL ast uds:Control substance agreement on filewill try to get wegovy- if not discussed topamax and contrave Obesity 708655264 E66.9 Pt compliant with plan of careKasper reviewedme dication compliance discussedL ast uds:Control substance agreement on fileadipex consent on filediscus sed meddiet and exercise plan [id number] Monse Castillo [address] [address] 09/10/2024 08:00:41 09/10/2024 08:58:47 Body mass index 30+ - obesity 802841023 Z68.34 Pt compliant with plan of careKasper reviewedme dication compliance discussedL ast uds:09/10/24 Control substance agreement on file Long-term current use of drug therapy 282127712 Z79.899 Anxiety 94993407 F41.9 Mixed hyperlipidemia 267 010511 E78.2 Vitamin D deficiency 347 88020 E55.9 [id number] [facility] Cast[facility] [address] [address] 09/16/2024 14:27:53 09/16/2024 14:59:21 Pure hyperglyceridemia 469508769 E78.1 [id number] [facility] Castillo[address] [address] 11/05/2024 08:32:24 11/05/2024 09:51:53 Body mass index 30+ - obesity 187564329 Z68.34 Pt compliant with plan of careKasper reviewedme dication compliance discussedL ast uds:09/10/24 Control substance agreement on file Health Concerns Section Related Observation LastModified by Organization Detai ls LastModified Time None Recorded Concern Status LastModified by Organization Details LastModified Time None Recorded Advance Directives Directive N: Payers Insurance Date Sequence Insurance Name Policy Number Policy Martell Covered Member ID Martell Member ID Guarantor Name 11/30/2024 1 [employer] [facility] [place] [facility] Magalys Maria [id number] Magalys Maria 01/30/2024 2 [employer] [facility] (MEDICAID HMO) Magalys Maria [id number] Magalys Maria 02/16/2024 1 JACKIEENE - CATHRYN [facility] ([place]) Magalys Maria [id number] Magalys Maria 09/10/2024 1 CENTENE - AMBETTER OF [facility] [place] Magalys Maria [id number] Magalys Maria 07/09/2016 1 UNSPECIFIED REMIT PAYOR Magalys Maria 01/30/2024 2 CENTENE - AMBETTER FROM [facility] - [facility] (O) [id number] Candelario Maria [id number] Magalys Maria 11/30/2024 [place] - [facility] (MEDICAID) Magalys Maria [id number] Magalys Maria Notes Date Note Type Note Provider Name and Address Organization Details Recorded Time 04/16/2024 text/html 38 year old female who presents to the office today for a follow up onweight loss, today she weighs 184.2At her last appt on 03-16-24 she weighed 184.2.pt states she did medication filled last month because she didn't have the money. Monse Castillo APRN [address], [place], [address], [place] - [facility] 04/16/2024 11:20:53 05/14/2024 text/html ROS as noted in the HPI 38 yr old female presents for a weight loss follow up. She has gained 2.4 lbs last month but did not take the phentermine. She is interested in wegovy. Monse Castillo APRN [address], [place], [address], [place] - [facility] 05/14/2024 10:26:20 09/10/2024 text/html 39 yr old female presents to discuss weight loss. pt tried to get glp1 but insurance would not cover. pt states she has been exercising and dieting with no success. Pt states has been on adipex in past and tolerated it well. also needs routine labs Monse Castillo APRN [address], [place], [address], [place] - [facility] 09/10/2024 08:44:19 09/16/2024 text/html 39 yr old presents for labs Monse Castillo APRN [address], [place], [address], [place] [facility] 09/16/2024 16:46:53 11/05/2024 text/html 39 yr old female presents for a weight loss follow up. down 2 lbs doing well with diet and exercise Monse Castillo, [employer]ULATING SUPER[employer]OR [address], [place], [address], [place] [facility] 11/05/2024 09:30:46 OBGyn Episode Ob Episode Information Episode Created Date Number of Fetuses Patient Bloodtype Patient rh Status Prepregnancy Weight lbs Domestic Partner Domestic Partner Phone Father Name Knowledge Management Consultant Status 01/03/20 17 1 CLOSED Fetus Data First Name Last Name Admitted to NICU Weight (g) Sex Living Outcome Pediatric Complications Fetus ID Race Codes Race Delivery Type 2806.37 3704 F Full Term 6169 Vaginal Evan Calculation Initial Evan Date Initial Exam Date Initial Exam Provider Initial Ultrasound Date Last Menstrual Period Date Ultra Sound Weeks Gestation 0 Eighteen To Twenty Week Evan Update Ultra Sound Date Fundal Height At Umbil Quickening Date Ultra Sound Latest Weeks Gestation Final Evan Confirmed By Final Evan Confirmed Date Final Evan Date Ultra Sound Latest Days Gestation 0 0 Menstrual History Last Menstrual Date Menses Monthly On Bcp Conception Prior Menses Frequency Hcg Plus Date Menarche Onset Age Delivery Information Delivery Date Delivery Type Labor Anesthesia Weeks Gestation Incision Type Labor Labor Length Hrs Delivered By Post Complications Tubal Sterilization Discharge Date Comments 5 [facility]- idural 40 [place] Discharge Information Feeding Method Contraceptive Method Maternal HG B and HCT Levels Ob Episode Information Episode Created Date Number of Fetuses Patient Bloodtype Patient rh Status Prepregnancy Weight lbs Domestic Partner Domestic Partner Phone Father Name Knowledge Management Consultant Status 01/03/20 17 1 CLOSED Fetus Data First Name Last Name Admitted to NICU Weight (g) Sex Living Outcome Pediatric Complications Fetus ID Race Codes Race Delivery Type 3345.24 1 F Full Term 6170 Vaginal Evan Calculation Initial Evan Date Initial Exam Date Initial Exam Provider Initial Ultrasound Date Last Menstrual Period Date Ultra Sound Weeks Gestation 0 Eighteen To Twenty Week Evan Update Ultra Sound Date Fundal Height At Umbil Quickening Date Ultra Sound Latest Weeks Gestation Final Evan Confirmed By Final Evan Confirmed Date Final Evan Date Ultra Sound Latest Days Gestation 0 0 Menstrual History Last Menstrual Date Menses Monthly On Bcp Conception Prior Menses Frequency Hcg Plus Date Menarche Onset Age Delivery Information Delivery Date Delivery Type Labor Anesthesia Weeks Gestation Incision Type Labor Labor Length Hrs Delivered By Post Complications Tubal Sterilization Discharge Date Comments 2 [facility] idural 38 pit induction , no repair needed per RH, Discharge Information Feeding Method Contraceptive Method Maternal HG B and HCT Levels Ob Episode Information Episode Created Date Number of Fetuses Patient Bloodtype Patient rh Status Prepregnancy Weight lbs Domestic Partner Domestic Partner Phone Father Name Knowledge Management Consultant Status 01/03/20 17 1 CLOSED Fetus Data First Name Last Name Admitted to NICU Weight (g) Sex Living Outcome Pediatric Complications Fetus ID Race Codes Race Delivery Type 3175.14 4 F Full Term 6168 Vaginal Evan Calculation Initial Evan Date Initial Exam Date Initial Exam Provider Initial Ultrasound Date Last Menstrual Period Date Ultra Sound Weeks Gestation 0 Eighteen To Twenty Week Evan Update Ultra Sound Date Fundal Height At Umbil Quickening Date Ultra Sound Latest Weeks Gestation Final Evan Confirmed By Final Evan Confirmed Date Final Evan Date Ultra Sound Latest Days Gestation 0 0 Menstrual History Last Menstrual Date Menses Monthly On Bcp Conception Prior Menses Frequency Hcg Plus Date Menarche Onset Age Delivery Information Delivery Date Delivery Type Labor Anesthesia Weeks Gestation Incision Type Labor Labor Length Hrs Delivered By Post Complications Tubal Sterilization Discharge Date Comments 6 [facility] idural 41 inductio n for post dates in [place] Discharge Information Feeding Method Contraceptive Method Maternal HG B and HCT Levels Ob Episode Information Episode Created Date Number of Fetuses Patient Bloodtype Patient rh Status Prepregnancy Weight lbs Domestic Partner Domestic Partner Phone Father Name Knowledge Management Consultant Status 03/10/20 18 1 CLOSED Fetus Data First Name Last Name Admitted to NICU Weight (g) Sex Living Outcome Pediatric Complications Fetus ID Race Codes Race Delivery Type 3175.14 4 F Full Term 9260 Vaginal Evan Calculation Initial Evan Date Initial Exam Date Initial Exam Provider Initial Ultrasound Date Last Menstrual Period Date Ultra Sound Weeks Gestation 0 Eighteen To Twenty Week Evan Update Ultra Sound Date Fundal Height At Umbil Quickening Date Ultra Sound Latest Weeks Gestation Final Evan Confirmed By Final Evan Confirmed Date Final Evan Date Ultra Sound Latest Days Gestation 0 0 Menstrual History Last Menstrual Date Menses Monthly On Bcp Conception Prior Menses Frequency Hcg Plus Date Menarche Onset Age Delivery Information Delivery Date Delivery Type Labor Anesthesia Weeks Gestation Incision Type Labor Labor Length Hrs Delivered By Post Complications Tubal Sterilization Discharge Date Comments 4 [facility] idural 40 [place] Discharge Information Feeding Method Contraceptive Method Maternal HG B and HCT Levels Ob Episode Information Episode Created Date Number of Fetuses Patient Bloodtype Patient rh Status Prepregnancy Weight lbs Domestic Partner Domestic Partner Phone Father Name Knowledge Management Consultant Status 03/10/20 18 1 CLOSED Fetus Data First Name Last Name Admitted to NICU Weight (g) Sex Living Outcome Pediatric Complications Fetus ID Race Codes Race Delivery Type , Spontane ous [id number] Evan Calculation Initial Evan Date Initial Exam Date Initial Exam Provider Initial Ultrasound Date Last Menstrual Period Date Ultra Sound Weeks Gestation 0 Eighteen To Twenty Week Evan Update Ultra Sound Date Fundal Height At Umbil Quickening Date Ultra Sound Latest Weeks Gestation Final Evan Confirmed By Final Evan Confirmed Date Final Evan Date Ultra Sound Latest Days Gestation 0 0 Menstrual History Last Menstrual Date Menses Monthly On Bcp Conception Prior Menses Frequency Hcg Plus Date Menarche Onset Age Delivery Information Delivery Date Delivery Type Labor Anesthesia Weeks Gestation Incision Type Labor Labor Length Hrs Delivered By Post Complications Tubal Sterilization Discharge Date Comments 3 9 sab at home Discharge Information Feeding Method Contraceptive Method Maternal HG B and HCT Levels
--- OUTSIDE RECORDS SUMMARY | 2024-12-01 11:09 | XMS_ITS | Data Portability ---
Author Organization [place] - [facility] Address [address] [place] [address] Care Team Providers Care General Manager Name Role Phone SHEILA SETWART Primary Care Provider [phone] Assessment No assessment recorded. Plan of Treatment Reminders Order Date Submit Date Provider Last Modified By Organization Details Last Modified Time Details Appointments None recorded. Lab None recorded. Referral None recorded. Procedures esophagogas troduodenos copy with biopsy (PROC) - PHYSICIAN ORDERS 1. Ensure patient is NPO. 0.9% normal saline @kvo preferably in right arm; IV patent to gravity. 3. verify consent. EGD with possible biopsy with possible dilation. 4. On-Call to Endoscopy. 5. Draw pt/inr if patient on Coumadin Hold 2022 023 [email or web address] Bow (Outpatient Surgery), [address] [place] [address] , [place], [address], 12:06:29 Surgeries None recorded. Imaging None recorded. Medication Orders None recorded. Patient TargetsNo targets recorded. Patient Instructions Encounter Date Encounter Id Patient Instructions Last Modified By Organization Details Last Modified Time 12/16/2022 [id number] The indications, technique, alternatives, and potential risks and complications of planned procedure were discussed with the patient including, but not limited to bleeding, perforation, missed lesions, and anesthesia complications. The patient understands and wishes to proceed and has given informed consent. Written information provided to the patient. [email or web address] Not available 12/16/2022 16:37:35 Reason for Referral None Reported. Results Created Date Observation Date Name Description Value Unit Range Abnormal Flag Note LastModifiedBy Organization Detail LastModifiedTime 01/07/20 23 01/06/2023 UR HCG QUAL note See Note Order ing Provi porter: Rafael cody MD Not Available [address] , [place], [address], 01/06/2023 09:09:48 01/07/20 23 01/06/2023 UR HCG QUAL ur HCG qual NEGATI VE negati ve Not Available [address] , [place], [address], 01/06/2023 09:09:48 01/07/20 23 01/06/2023 UR HCG QUAL performing lab see note ML - [facility] [address] [facility] [id number] Not Available [address] , [place], [address], 01/06/2023 09:09:48 Result Notes None recorded. 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 Active José Miguel vega, [place] - [facility] - [place] [facility] [place] 3 08:21:27 Scoliosis deformity of spine 169188648 Active 2015 José Miguel Edwards null, [place] [facility] - [place] 3 08:21:27 Obesity 979345294 Active 2016 José Miguel Edwards null, [place] [facility] [place] [facility] [place] 3 08:21:27 Hyperlipidemia 74890826 Active 2016 José Miguel Edwards null, [place] [facility] [place] 3 08:21:27 Gastroesophage al reflux disease 653890967 Active 2017 José Miguel vega, [place] [facility] - [place] 3 08:21:27 Mixed hyperlipidemia 023608192 Active 2017 José Miguel vega, [place] [facility] - [place] [facility] [place] 3 08:21:27 Depressive disorder 32342404 Active 2017 CAROLINA Rascon [facility] - [place] [facility] [place] 3 08:21:27 Vitamin D deficiency 43509559 Active 2018 CAROLINA Rascon [facility] - [place] [facility] [place] 3 08:21:27 Acid reflux 705371954 Active 2021 CAROLINA Rascon [facility] - [place] [facility] [place] 3 08:21:27 Anxiety 36834868 Active 2021 CAROLINA Rascon [facility] - [place] & [place] 3 08:21:27 Chronic constipation 394392479 Active 2021 José Miguel Edwards CAROLINA vega [facility] - [place] & [place] 3 08:21:27 Family history of malignant neoplasm of ovary 871885501 Active 2021 CAROLINA Rascon [facility] - [place] [facility] [place] 3 08:21:27 Break-through bleeding 76132913 Active 2021 José Miguel YuengiCAROLINA brar [facility] [place] [facility] [place] 3 08:21:27 Epigastric pain 58135673 Active 2022 Elia Ordoñez MD [id number] [facility],[address], [place], [address], CAROLINA Olivas [facility] & [place] 3 16:26:01 Metabolic dysfunction-as sociated steatotic liver disease Active 2022 Elia Ordoñez MD [address], [place], [address], [place] - [facility] & [place] 3 16:35:51 Problem Notes None recorded. Procedures Surgical History Date Name Laterality Status Provider Name and Address Organization Details Recorded Time 11/11/19 Date of Last Pap Smear completed José Miguel Grace CAROLINA Olivas [facility] [place] [facility] [place] 02/20/2023 09:01:14 10/12/19 23 colposcopy completed José Miguel OSUNA - [place] [facility] [place] 12/16/2022 12:46:53 09/17/19 23 US scan of upper abdomen completed José Miguel OSUNA - [place] 12/16/2022 12:47:26 05/12/19 23 Other [facility] [place] 02/20/2023 09:01:15 03/21/20 14 Tubal Ligation completed José Miguel [facility] - [place] 12/16/2022 08:29:39 05/12/19 14 Airport Location Manager Surgery completed [facility] [place] 02/20/2023 09:01:15 08/11/19 11 colposcopy completed José Miguel O[facility]NA - [place] 12/16/2022 12:47:12 05/12/19 09 Tonsillectomy/Ad enoidectomy completed José Miguel OSUNA - [place] & [place] 12/16/2022 08:31:32 05/12/19 09 ENT Surgery completed José Miguel OSUNA - [place] & [place] 02/20/2023 09:01:15 05/12/18 94 Abdominal Surgery completed José Miguel O[facility] - [place] [facility] [place] 02/20/2023 09:01:15 05/12/18 93 Appendectomy completed [facility] [place] 12/16/2022 08:30:57 Imaging Results None recorded. Procedure Notes None recorded. Medical Equipment None Reported. Allergies Allergen ID Allergen Name Allergen Category Reaction Reaction Severity Criticality Documentation Date Start Date Code Code System Note Provider Name and Address Organization Details Recorded Time 41199 atorvasta tin medicatio n edema Not available Not available 12/16/2022 [id number] RxNorm CAROLINA Rascon [facility] - [place] [facility] [place] 08:21:25 Medications Name Sig Start Date Stop Date Status Note LastModified by Organization Details LastModified Time Prometrium 200 mg capsule take 1 capsule by oral route once a day (at bedtime) 07/09 completed Not Available Not Available Not Available cyclobenzap rine 10 mg tablet take 1 tablet (10 mg) by oral route 3 times per day for 30 days 11/26 completed Not Available Not Available Not Available amoxicillin 500 mg capsule TAKE 1 CAPSULE BY MOUTH THREE TIMES DAILY 03/14 completed Not Available Not Available Not Available fluconazole 100 mg tablet TAKE ONE TABLET BY MOUTH NOW AND MAY REPEAT IN THREE DAYS IF NO IMPROVEME NT 12/16 completed Not Available Not Available Not Available atorvastati n 40 mg tablet TAKE ONE TABLET BY MOUTH EVERY DAY for 90 days 12/07 completed Not Available Not Available Not Available buspirone 5 mg tablet TAKE ONE TABLET BY MOUTH TWICE DAILY NEEDED 08/29 completed Not Available Not Available Not Available bupropion HCl SR 150 mg tablet,12 hr sustained-r elease Take 1 tablet by mouth daily 08/14 completed Not Available Not Available Not Available prednisone 10 mg tablet TAKE ONE TABLET BY MOUTH EVERY DAY FOR 5 DAYS 10/18 completed Not Available Not Available Not Available doxycycline hyclate 100 mg capsule TAKE ONE CAPSULE BY MOUTH TWICE DAILY FOR 14 DAYS 12/16 completed Not Available Not Available Not Available atorvastati n 20 mg tablet TAKE ONE TABLET BY MOUTH EVERY DAY 08/05 completed Not Available Not Available Not Available triazolam 0.25 mg tablet TAKE ONE TABLET BY MOUTH AT BEDTIME THEN TAKE ONE TABLET ONE hour BEFORE dental appointme nt THEN bring third TABLET with you 03/14 completed Not Available Not Available Not Available ibuprofen 800 mg tablet TAKE 1 TABLET BY MOUTH THREE TIMES DAILY WITH FOOD 12/16 completed Not Available Not Available Not Available Lidocaine Viscous 2 % mucosal solution SWISH AND SPIT 15 ML OR APPLY TO AFFECTED AREA WITH COTTON SWAB BY MOUTH EVERY 2 HOURS NEEDED FOR PAIN 03/14 completed Not Available Not Available Not Available fluconazole 150 mg tablet TAKE ONE TABLET BY MOUTH DAILY. MAY REPEAT in 72 hours if needed 12/16 completed Not Available Not Available Not Available ketotifen 0.025 % (0.035 %) eye drops 02/27 completed Not Available Not Available Not Available clarithromy damion 500 mg tablet Take 1 tablet every 12 hours by oral route for 14 days. 12/29 completed Not Available Not Available Not Available hydrocodone 5 mg-acetamin ophen 325 mg tablet TAKE 1 TO 2 TABLETS BY MOUTH EVERY 6 HOURS NEEDED FOR PAIN scale 1-5 03/14 completed Not Available Not Available Not Available ondansetron HCl 4 mg tablet 12/07 completed Not Available Not Available Not Available prednisone 20 mg tablet TAKE ONE TABLET BY MOUTH EVERY DAY FOR 5 DAYS 06/21 completed Not Available Not Available Not Available dexamethaso ne 6 mg tablet TAKE ONE TABLET BY MOUTH ONCE DAILY FOR 7 DAYS 08/14 completed Not Available Not Available Not Available metronidazo le 500 mg tablet Take 1 tablet by mouth 2 times daily for 7 days 07/18 completed Not Available Not Available Not Available phentermine 37.5 mg tablet TAKE ONE TABLET BY MOUTH DAILY active Not Available Not Available No t Available omeprazole 40 mg capsule,del ayed release TAKE ONE CAPSULE BY MOUTH TWICE DAILY 30 minutes BEFORE THE morning AND evening meals active Not Available Not Available No t Available bupropion HCl SR 100 mg tablet,12 hr sustained-r elease TAKE ONE TABLET BY MOUTH EVERY DAY 08/29 completed Not Available Not Available Not Available amoxicillin 500 mg tablet Take 1 tablet twice a day by oral route for 14 days. 12/29 completed Not Available Not Available Not Available Vitamin tablet take 1 tablet by oral route once daily 03/16 completed Not Available Not Available Not Available oxycodone-a cetaminophe n 5 mg-325 mg tablet TAKE 1 TABLET BY MOUTH EVERY 6 TO 8 HOURS NEEDED 03/14 completed Not Available Not Available Not Available ofloxacin 0.3 % ear drops instill 10 drops in LEFT ear daily 12/25 completed Not Available Not Available Not Available Metrogel Vaginal 0.75 % (37.5 mg/5 gram) insert 1 applicato rful (37.5 mg) by vaginal route once daily at bedtime for 5 days 11/27 completed Not Available Not Available Not Available omeprazole 10 mg capsule,del ayed release TAKE two caps daily. 11/15 completed Not Available Not Available Not Available Depo-Salesperson Driver a 150 mg/mL intramuscul ar suspension inject 150 mg by intramusc ular route every 3 months 06/06 completed Not Available Not Available Not Available Zoloft 50 mg tablet take 1/2 tablet by mouth daily x 6 days, then take 1 tablet by mouth daily 02/15 completed Not Available Not Available Not Available amitriptyli ne 10 mg tablet take 1 tablet by oral route once a day (at bedtime) for 30 days 02/04 completed Not Available Not Available Not Available meclizine 25 mg tablet take 1 tablet (25 mg) by oral route once daily as needed for 14 days 02/20 completed Not Available Not Available Not Available cephalexin 500 mg capsule take one capsule TWICE DAILY FOR SEVEN DAYS 12/16 completed Not Available Not Available Not Available Prozac 20 mg capsule take 1 capsule (20 mg) by oral route once daily for 30 days 11/17 completed Not Available Not Available Not Available buspirone 10 mg tablet TAKE ONE TABLET BY MOUTH THREE TIMES DAILY 12/16 completed Not Available Not Available Not Available promethazin e 25 mg tablet TAKE 1 TABLET BY MOUTH EVERY 6 HOURS NEEDED 03/14 completed Not Available Not Available Not Available omeprazole 20 mg capsule,del ayed release TAKE ONE CAPSULE BY MOUTH DAILY 11/15 completed Not Available Not Available Not Available etodolac 400 mg tablet Take 1 tablet twice a day by oral route for 10 days. 06/21 completed Not Available Not Available Not Available hydrochloro thiazide 25 mg tablet TAKE ONE TABLET BY MOUTH EVERY DAY 04/23 completed Not Available Not Available Not Available Imitrex 100 mg tablet take 1 tablet by oral route once with fluids as after the onset of a migraine attack;ma y repeat after 2 hours if headache returns 12/21 completed Not Available Not Available Not Available ibuprofen 600 mg tablet take 1 tablet (600 mg) by oral route 3 times per day with food for 30 days 11/13 completed Not Available Not Available Not Available methylpredn isolone 4 mg tablets in a dose pack TAKE DIRECTED ON PACKAGE 03/14 completed Not Available Not Available Not Available Vitamin D2 1,250 mcg (50,000 unit) capsule TAKE ONE CAPSULE BY MOUTH WEEKLY active Not Available Not Available No t Available Terazol 7 0.4 % vaginal cream insert 1 applicato rful by vaginal route once daily at bedtime for 7 days 07/09 completed Not Available Not Available Not Available bromphenira mine-pseudo ephedrine-D M 2 mg-30 mg-10 mg/5 mL oral syrup Take FIVE ML by MOUTH every 4-6 hours as needed NEEDED 09/22 completed Not Available Not Available Not Available naproxen 500 mg tablet Take 1 tablet twice a day by oral route. 02/27 completed Not Available Not Available Not Available amoxicillin 875 mg-potassiu m clavulanate 125 mg tablet TAKE ONE TABLET BY MOUTH TWICE DAILY - take with food 09/22 completed Not Available Not Available Not Available Inderal LA 60 mg capsule,ext ended release one cap daily 02/27 completed Not Available Not Available Not Available amoxicillin 500 mg-potassiu m clavulanate 125 mg tablet TAKE ONE TABLET BY MOUTH TWICE DAILY FOR 10 DAYS 10/18 completed Not Available Not Available Not Available Vitamin 27 mg iron-0.8 mg tablet take 1 tablet by oral route once daily 11/27 completed Not Available Not Available Not Available azithromyci n 500 mg tablet TAKE ONE TABLET BY MOUTH ONCE DAILY FOR 7 DAYS 08/14 completed Not Available Not Available Not Available Ortho Tri-Cyclen LO (28) 0.18 mg/0.215 mg/0.25 mg-25 mcg tablet take 1 tablet by oral route once daily for 30 days 05/21 completed Not Available Not Available Not Available Vigamox 0.5 % eye drops instill 1 drop into both eyes by ophthalmi c route 3 times per day for 7 days 11/30 completed Not Available Not Available Not Available bupropion HCl XL 300 mg 24 hr tablet, extended release Take 1 tablet by mouth daily 08/14 completed Not Available Not Available Not Available bupropion HCl XL 150 mg 24 hr tablet, extended release TAKE ONE TABLET BY MOUTH DAILY active Not Available Not Available No t Available chlorhexidi ne gluconate 0.12 % mouthwash RINSE MOUTH WITH 1/2 OUNCE (15ML) TWICE DAILY FOR 2 MINUTES THEN SPIT OUT 03/14 completed Not Available Not Available Not Available 27 mg iron-0.8 mg tablet take 1 tablet by oral route once daily 11/27 completed Not Available Not Available Not Available Daily Multivitami n take 1 tablet daily active Not Available Not Available No t Available cholecalcif kaley (vitamin D3) 1,250 mcg (50,000 unit) capsule TAKE ONE CAPSULE BY MOUTH ONCE A WEEK active Not Available Not Available No t Available levocetiriz ine 5 mg tablet TAKE ONE TABLET BY MOUTH DAILY 12/18 completed Not Available Not Available Not Available Vitamin D3 50 mcg (2,000 unit) capsule Take 1 capsule every day by oral route. 08/14 completed Not Available Not Available Not Available Linzess 145 mcg capsule TAKE ONE CAPSULE BY MOUTH EVERY DAY active Not Available Not Available No t Available Fioricet 50 mg-300 mg-40 mg capsule take 1 capsule by oral route every 4 hours as needed 03/25 completed Not Available Not Available Not Available Vitals Date Recorded Body height Body mass index (BMI) Body weight Body temperature Heart rate Respiratory rate Systolic And Diastolic Provider Name and Address Organization Details Last Updated DateTime 3 160.02 cm 31 kg/m2 89570.3 8 g 97.4 [degF] 81 /min 18 /min 148/97 mm[Hg] José Miguel FIGUEROA [facility] & [place] 15:26:58 Social History Question Answer Notes LastModified by Organizat ion Details LastModified Time Tobacco Smoking Status Never Smoker José Miguel Edwards [facility] & [place] 12/16/2022 08:26:24 Do You Have An Advance Directive? No Information not available 02/20/2023 Are You Blind Or Do You Have Difficulty Seeing? No Information not available 02/20/2023 What Is Your Level Of Caffeine Consumption? Moderate Information not available 02/20/2023 What Type Of Diet Are You Following? REGULAR Information not available 02/20/2023 What Was The Date Of Your Most Recent Tobacco Screening? 12/15/2022 Information not available 02/20/2023 Are You Passively Exposed To Smoke? No Information not available 02/20/2023 How Much Tobacco Do You Smoke? No Information not available 02/20/2023 Sex: Unknown Functional Status Question Answer Note LastModified by Organizat ion Details LastModified Time Do you use any illicit or recreational drugs? No Information not available 12/16/2022 What is your level of alcohol consumption? None Information not available 12/16/2022 Do you or have you ever used smokeless tobacco? Never used smokeless tobacco Information not available 02/20/2023 What is your exercise level? Occasional Information not available 12/16/2022 Mental Status Question Answer Note LastModified by Organization D etails LastModified Time Do you feel stressed (tense, restless, nervous, or anxious, or unable to sleep at night)? [id number] Information not available 02/20/2023 Family History Relationship Description Onset Age of this Age Resolved Age Notes LastModified by Organization Details LastModified Time Mother Chronic obstructive pulmonary disease pt. added direct ly (12/15) [email or web address] Not available 12/15/2022 14:00:20 Mother Disorder of endocrine system pt. added direct ly (12/15) [email or web address] Not available 12/15/2022 14:00:42 Mother Gastroesopha geal reflux disease pt. added direct ly (12/15) [email or web address] Not available 12/15/2022 14:00:49 Mother Headache pt. added direct ly (12/15) [email or web address] Not available 12/15/2022 14:01:00 Mother Hearing loss pt. added direct ly (12/15) [email or web address] Not available 12/15/2022 14:01:07 Mother Hypercholest erolemia pt. added direct ly (12/15) [email or web address] Not available 12/15/2022 14:01:17 Mother Hypertensive disorder pt. added direct ly (12/15) [email or web address] Not available 12/15/2022 14:01:37 Mother Kidney disease pt. added direct ly (12/15) [email or web address] Not available 12/15/2022 14:01:45 Mother Liver problem pt. added direct ly (12/15) [email or web address] Not available 12/15/2022 14:02:06 Mother Disorder of thyroid gland pt. added direct ly (12/15) [email or web address] Not available 12/15/2022 14:02:25 Sister Headache pt. added direct ly (12/15) [email or web address] Not available 12/15/2022 14:01:00 Sister Hypertensive disorder pt. added direct ly (12/15) [email or web address] Not available 12/15/2022 14:01:37 Father Hypercholest erolemia pt. added direct ly (12/15) [email or web address] Not available 12/15/2022 14:01:17 Daughter Disorder of thyroid gland pt. added direct ly (12/15) [email or web address] Not available 12/15/2022 14:02:25 Paternal Grandmother Family history of neoplasm of ovary [email or web address] Not available 2022 15:31:34 Medical History Condition Response Coronary Artery Disease N Gout N Other Y None N Colon Cancer N Kidney Stones N Hyperthyroidism N Depression Y COPD N Hypothyroidism N Osteoporosis/Osteopenia N Diverticulitis/Diverticulosis N Colon Polyps N Anxiety Disorder Y Diabetes N Obesity Y Bleeding Disorder N Vision or Eye Problems Y Arthritis N Seizures/Epilepsy N Tuberculosis N Hyperlipidemia Y Cancer N Stroke N Asthma N Reflux/GERD Y Sleep Apnea N GERD/Reflux Y Hepatitis N Cirrhosis N Liver Disease N Heart Disease N Headaches Y Hypertension N Kidney Disease N Gynecological History Statement/Question Response Menses Monthly N Abnormal Pap Y Date of Last Pap Smear 11/10/2022 Current Control Method Tubal Ligat ion Date of LMP 09/23/2022 Sexually Active? Y Obstetrics History GPAL:G 0 P 0 0 0 0 Immunizations Vaccine Type Date Status Note Provider Nam e and Address Organization Details Recorded Time Influenza, split virus, quadrivalent, preservative 7 completed Not Available [facility] 01/07/2023 01:48:10 Influenza, split virus, quadrivalent, preservative 6 completed Not Available [facility] 01/07/2023 01:48:10 Influenza, split virus, quadrivalent, preservative 8 completed Not Available [facility] 01/07/2023 01:48:10 Tdap 4 completed Not Available [facility] 01/07/2023 01:48:10 Past Encounters Encounter ID Performer Location Encounter Start Date Encounter Closed Date Diagnosis/Indication Diagnosis SNOMED-CT Code Diagnosis ICD10 Code Diagnosis Note [id number] Elia Ordoñez MD [facility] Gastroent erology [address] [place] [address],[address] [address] 12/16/2022 15:15:03 12/16/2022 16:39:29 Epigastric pain 57801498 R10.13 The patient has epigastric pain on examinatio n, not right upper quadrant pain. The patient's symptoms are worsened by food intake, the patient has been on a proton pump inhibitor for proximally 5 years. We would recommend endoscopic investigat ion to further elucidate the potential underlying cause of the patient's symptoms. In regards the patient's PPI will continue this at this time moving it to 30 minutes before breakfast, the patient was educated in the importance of eating breakfast after her dose to maximize its benefit. Metabolic dysfunction-associate d steatotic liver disease 2688450826 K76.0 ultrasound evidence of potential steatosis, with normal LFTs, FiB 4 score 0.61 placing this patient in the low risk category based on current guidelines patient is in the low risk group can be managed by PCP. We would recommend lifestyle interventi on for all patients manifested by regular aerobic activity, healthy diet avoidance of excessive alcohol. Weight loss is recommende d. Repeat noninvasiv e testing in [facility] 2 years Health Concerns Section Related Observation LastModified by Organization Detai ls LastModified Time None Recorded Concern Status LastModified by Organization Details LastModified Time None Recorded Advance Directives Directive N: Payers Insurance Date Sequence Insurance Name Policy Number Policy Martell Covered Member ID Martell Member ID Guarantor Name 02/17/2023 1 AETCELINA [facility] (MEDICAID HMO) Magalys Maria [id number] Magalys Maria 12/20/2021 1 AEMARINA Maria [id number] Magalys Maria Notes Date Note Type Note Provider Name and Address Organization Details Recorded Time 12/16/2022 text/html this 37-year-old female presents today for evaluation of steatosis of the liver . The patient reports that she has had a dull achy pain in her upper abdomen which she believes is slightly to the right of the midline that has been going on for several years. The patient had her gallbladder removed for these problems, but the pain has continued episodically. It occurs probably fiber 6 times per month. It usually occurs in the early afternoon, this is after the patient's largest meal of the day. The patient has been on a proton pump inhibitor for proximally 5 years for acid reflux . The patient has had no dysphagia, no nausea or vomiting. Imaging has been done which demonstrated a liver with elevated echogenicity compatible with steatosis. No other pathology identified. LFTs entirely normal, amylase and lipase normal, and CBC normal. The patient's losing some weight, intentionally. Elia Ordoñez MD [address] [facility],[address], [place], [address], [facility] - [place] - [place] & [place] 12/16/2022 16:38:12 OBGyn Episode No OBEpisode recorded.
--- OUTSIDE RECORDS SUMMARY | 2024-12-01 11:09 | XMS_ITS | Clinical Summary ---
Author Organization [employer] ([place], [place], [place], [place]) Address [address] [place] [address] Care Team Providers Care Mill Tender Name Role Phone Unavailable Primary Care Provider Unavailabl e Allergies No known active allergies Medications omeprazole (PriLOSEC) 40 MG capsule Take 1 capsule (40 mg total) by mouth daily. Active phentermine 37.5 MG capsule Take 1 capsule (37.5 mg total) by mouth every morning. Max Daily Amount: 37.5 mg Active buPROPion (WELLBUTRIN XL) 150 MG 24 hr tablet Take 1 tablet (150 mg total) by mouth daily. Active Social History Tobacco Use Types Packs/Day Years Used Date Smoking Tobacco: Never Smokeless Tobacco: Never Tobacco Cessation:Counseling Given: Not Answered Alcohol Use Standard Drinks/Week Comments Never 0 (1 standard drink = 0.6 oz pur e alcohol) Food Insecurity Answer Date Recorded Food run out past 12 months Not on file 10/10 Food did not last past 12 months Not on file 10/21/2023 Employment Answer Date Recorded Help finding and keeping a job Not on file 0 10/21/2023 Family and Community Support Answer Kendall e Recorded Help with Day to Day Activities Not on file 10/21/2023 Feeling Lonely or Isolated Not on file 10/20 Educational Attainment Answer Date Dmitry rded Speak language other than Yoruba at home Not on file 10/21/2023 Want help with school or training Not on file 10/21/2023 Substance Use Answer Date Recorded Used prescription meds for non-medical reasons N ot on file 10/21/2023 Used illegal drugs past 12 months Not on file 10/21/2023 Comments Unknown Sex and Gender Information Value Date Recorded Sex Assigned at Not on file Legal Sex Female 8:27 AM CDT Gender Identity Not on file Sexual Orientation Not on file Plan of Treatment Not on file
--- OUTSIDE RECORDS SUMMARY | 2024-12-01 11:09 | XMS_ITS | Referral Summary ---
Author Organization [employer] ([place], [place], [place], [place]) Address [address] [place] [address] Care Team Providers Care Senior Contracts Manager Name Role Phone Unavailable Primary Care Provider [...] Date Dmitry rded Speak language other than German at home Not on file 10/21/2023 Want [...]
--- OUTSIDE RECORDS SUMMARY | 2024-12-01 11:09 | XMS_ITS | Data Portability ---
Author Organization [place] - [facility] - [facility] & ENRRIQUE Cisneros ADMIN Address [address] [place] [id number] Care Team Providers Care Pet Caregiver Name Role Phone SHEILA STEWART Referring Provider [phone] Assessment No assessment recorded. Plan of Treatment Reminders Order Date Submit Date Provider Last Modified By Organization Details Last Modified Time Details Appointments None recorded. Lab borrelia burgdorferi IgG + IgM + total panel, IA, serum 2022 023 [facility], [address] , [facility] [place], [address], 3 11:13:08 unlisted lab - syphilis Ab reflex RPR quant 2022 023 [facility], [address] , [facility] [address], [place], [address], 3 17:09:29 Referral None recorded. Procedures None recorded. Surgeries None recorded. Imaging None recorded. Medication Orders None recorded. Patient TargetsNo targets recorded. Patient InstructionsNo instructions recorded. Reason for Referral None Reported. Results Created Date Observation Date Name Description Value Unit Range Abnormal Flag Note LastModifiedBy Organization Detail LastModifiedTime 12/11/1912/11/2022 LYME DISEA SE SEROL OGY W/REF ALLISON lyme total antibody mira POSITI VE negati ve Evide nce of Lyme antib odies ; confi rmati on indic ated. See Lyme IgG and Lyme IgM resul ts (refl ex testi ng), and Lyme inter preta tion for final inter preta tion of the Lyme serol ogy refle x algor ithm. Not Available [facility] ([facility]) [address] [facility], [place], [address], 12/11/2022 11:13:08 12/11/19 23 12/11/2022 LYME DISEA SE SEROL OGY W/REF ALLISON lyme IgG mira POSITI VE negati ve Not Available [facility] ([facility]) [address] [facility], [place], [address], 12/11/2022 11:13:08 12/11/19 23 12/11/2022 LYME DISEA SE SEROL OGY W/REF ALLISON lyme IgM mira POSITI VE negati ve Not Available [facility] ([facility]) [address] [facility], [place], [address], 12/11/2022 11:13:08 12/11/19 23 12/11/2022 LYME DISEA SE SEROL OGY W/REF ALLISON lyme interpretati on COMMEN T abnormal Lyme IgM/I gG Abs Detec myriam Resul ts are consi stent with B. burgd orfer i infec tion (Lyme disea se) in the recen t or remot e past. IgG-c lass antib odies may remai n detec table for month s to years follo wing resol ution of infec tion. Resul ts shoul d not be used to monit or or estab manny adequ ate respo nse to thera py. Respo nse to thera py is confi rmed throu gh resol ution of clini megan sympt oms; addit ional labor atory testi ng shoul d not be perfo rmed. If both tests are equiv ocal consi porter repea t testi ng in 7 to 14 days if clini eulogio warra nted. Not Available [facility] ([facility]) [address] [facility], [place], [address], 12/11/2022 11:13:08 12/11/19 23 12/11/2022 SYPHI LIS AB REFLE X RPR QUANT donor syphilis (T pallidum) NON REACTI VE non reacti ve Test perfo rmed with Becklinda an Coult er PK TP kit. Not Available [facility] ([facility]) [address] [facility], [place], [address], 12/11/2022 17:09:29 12/11/19 23 12/12/2022 LYME, LINE BLOT, SERUM IgG P93 Ab. Absent Not Available [facility] ([facility]) [address] [address] [facility], [place], [address], 12/13/2022 06:16:48 12/11/19 23 12/12/2022 LYME, LINE BLOT, SERUM IgG P66 Ab. Absent Not Available [facility] ([facility]) [address] [facility], [place], [address], 12/13/2022 06:16:48 12/11/19 23 12/12/2022 LYME, LINE BLOT, SERUM IgG P58 Ab. Presen t abnormal Not Available [facility] ([facility]) [address] [facility], [place], [address], 12/13/2022 06:16:48 12/11/19 23 12/12/2022 LYME, LINE BLOT, SERUM IgG P45 Ab. Absent Not Available [facility] ([facility]) [address] [facility] [address] [facility], [place], [address], 12/13/2022 06:16:48 12/11/19 23 12/12/2022 LYME, LINE BLOT, SERUM IgG P41 Ab. Presen t abnormal Not Available [facility] ([facility]) [address] [facility] [address] [facility], [place], [address], 12/13/2022 06:16:48 12/11/19 23 12/12/2022 LYME, LINE BLOT, SERUM IgG P39 Ab. Absent Not Available [facility] ([facility]) [address] [facility] [address] [facility], [place], [address], 12/13/2022 06:16:48 12/11/19 23 12/12/2022 LYME, LINE BLOT, SERUM IgG P30 Ab. Absent Not Available [facility] ([facility]) [address] [facility] [address] [facility], [place], [address], 12/13/2022 06:16:48 12/11/19 23 12/12/2022 LYME, LINE BLOT, SERUM IgG P28 Ab. Absent Not Available [facility] ([facility]) [address] [facility], [place], [address], 12/13/2022 06:16:48 12/11/19 23 12/12/2022 LYME, LINE BLOT, SERUM IgG P23 Ab. Presen t abnormal Not Available [facility] ([facility]) [address] [facility], [place], [address], 12/13/2022 06:16:48 12/11/19 23 12/12/2022 LYME, LINE BLOT, SERUM IgG P18 Ab. Absent Not Available [facility] ([facility]) [address] [facility] [address] [facility], [place], [address], 12/13/2022 06:16:48 12/11/1912/12/2022 LYME, LINE BLOT, SERUM lyme IgG line blot interp. Negati ve Posit verona: 5 of the follo wing Borre frank-s pecif ic bands : 18,23 ,28,3 0,39, 41,45 ,58, 66, and 93. Negat verona: No bands or alan ng patte rns which do not meet posit verona crite es. Not Available [facility] ([facility]) [address] [address], [place], [address], 12/13/2022 06:16:48 12/11/1912/12/2022 LYME, LINE BLOT, SERUM IgM P41 Ab. Presen t abnormal Not Available [facility] ([facility]) [address], [place], [address], 12/13/2022 06:16:48 12/11/19 23 12/12/2022 LYME, LINE BLOT, SERUM IgM P39 Ab. Presen t abnormal Not Available [facility] ([facility]) [address] [facility] [address] [facility], [place], [address], 12/13/2022 06:16:48 12/11/1912/12/2022 LYME, LINE BLOT, SERUM IgM P23 Ab. Presen t abnormal Not Available [facility] ([facility]) [address] [facility], [place], [address], 12/13/2022 06:16:48 12/11/1912/12/2022 LYME, LINE BLOT, SERUM lyme IgM line blot interp. Positi ve abnormal Note: An equiv ocal or posit verona EIA resul t follo wed by a negat verona Line Blot resul t is consi dered NEGAT VERONA. An equiv ocal or posit verona EIA resul t follo wed by a posit verona Line Blot is consi dered POSIT VERONA by the CDC. Posit verona: 2 of the follo wing bands : 23,39 or 41 Negat verona: No bands or alan ng patte rns which do not meet posit verona crite es. Crite es for posit ivity are those recom rhys d by CDC/A [facility] Nerissa. p23=O sp C, p41=f denice orellana Note: Sera from indiv idual s with the follo wing may cross react in the Lyme Line Blot assay s: other valeria cheta l disea ses (phyllis odont al disea se, lepto valeria sis, relap sing fever , yaws, and pinta ); conne ctive autoi mmune (Rheu matoi d Arthr itis and Syste michelle Lupus Eryth emato marguerite and also indiv idual s with Antin uclea r Antib elan); other infec tions (Mccool y [facility] ain Spott ed Fever ; Epste in-Ba rr Virus , and Cytom egalo virus ). Pleas e Note: Lyme immun oblot alone is not recom rhys d for the diagn osis of Lyme disea se. Curre nt guide lines recom mend the use of a two-t iered appro ach to Lyme serol ogy testi ng to impro ve the sensi tivit y and speci ficit y of testi ng. [facility] 07882 6 Lyme Disea se Serol ogy with Refle x to aid in the diagn osis of Lyme Disea se. Not Available [facility] ([facility]) [address], [place], [address], 12/13/2022 06:16:48 12/11/1912/12/2022 WRITT EN AUTHO RIZAT ION written authorizatio n Commen t Wrwillow en Autho rizat ion Recei sammie. Autho rizat ion recei sammie from LILIANA OWEN 12-12 Logge d by Braxton wu Not Available [facility] ([facility]) [address] [address], [place], [address], 12/13/2022 06:16:49 Result Notes None recorded. Medical Equipment None Reported. Allergies No known drug allergies Medications Name Sig Start Date Stop Date Status Note LastModified by Organization Details LastModified Time amoxicillin 500 mg capsule TAKE 1 CAPSULE BY MOUTH THREE TIMES DAILY active Not Available Not Available Not Available fluconazole 100 mg tablet TAKE ONE TABLET BY MOUTH NOW AND MAY REPEAT IN THREE DAYS IF NO IMPROVEMENT active Not Available Not Available Not Available buspirone 5 mg tablet TAKE ONE TABLET BY MOUTH TWICE DAILY NEEDED active Not Available Not Available No t Available doxycycline hyclate 100 mg capsule TAKE ONE CAPSULE BY MOUTH TWICE DAILY FOR 14 DAYS active Not Available Not Available No t Available triazolam 0.25 mg tablet TAKE ONE TABLET BY MOUTH AT BEDTIME THEN TAKE ONE TABLET ONE hour BEFORE dental appointment THEN bring third TABLET with you active Not Available Not Available No t Available ibuprofen 800 mg tablet TAKE 1 TABLET BY MOUTH THREE TIMES DAILY WITH FOOD active Not Available Not Available No t Available Lidocaine Viscous 2 % mucosal solution SWISH AND SPIT 15 ML OR APPLY TO AFFECTED AREA WITH COTTON SWAB BY MOUTH EVERY 2 HOURS NEEDED FOR PAIN active Not Available Not Available No t Available fluconazole 150 mg tablet Take 1 Tablet by mouth daily. May repeat in 72 hours if needed. active Not Available Not Available No t Available hydrocodone 5 mg-acetamino phen 325 mg tablet TAKE 1 TO 2 TABLETS BY MOUTH EVERY 6 HOURS NEEDED FOR PAIN scale 1-5 active Not Available Not Available No t Available metronidazol e 500 mg tablet Take 1 tablet by mouth 2 times daily for 7 days active Not Available Not Available N ot Available phentermine 37.5 mg tablet TAKE ONE TABLET BY MOUTH EVERY DAY active Not Available Not Available No t Available omeprazole 40 mg capsule,vel yed release TAKE ONE CAPSULE BY MOUTH TWICE DAILY 30 minutes BEFORE THE morning AND evening meals active Not Available Not Available No t Available bupropion HCl SR 100 mg tablet,12 hr sustained-re lease TAKE ONE TABLET BY MOUTH EVERY DAY active Not Available Not Available No t Available oxycodone-ac etaminophen 5 mg-325 mg tablet TAKE 1 TABLET BY MOUTH EVERY 6 TO 8 HOURS NEEDED active Not Available Not Available No t Available cephalexin 500 mg capsule take one capsule TWICE DAILY FOR SEVEN DAYS active Not Available Not Available No t Available promethazine 25 mg tablet TAKE 1 TABLET BY MOUTH EVERY 6 HOURS NEEDED active Not Available Not Available No t Available methylpredni solone 4 mg tablets in a dose pack TAKE DIRECTED ON PACKAGE active Not Available Not Available No t Available Vitamin D2 1,250 mcg (50,000 unit) capsule take ONE capsule by MOUTH WEEKLY active Not Available Not Available No t Available bupropion HCl XL 150 mg 24 hr tablet, extended release TAKE ONE TABLET BY MOUTH DAILY active Not Available Not Available Not Available chlorhexidin e gluconate 0.12 % mouthwash RINSE MOUTH WITH 1/2 OUNCE (15ML) TWICE DAILY FOR 2 MINUTES THEN SPIT OUT active Not Available Not Available No t Available Linzess 145 mcg capsule TAKE ONE CAPSULE BY MOUTH EVERY DAY active Not Available Not Available No t Available Vitals Date Recorded Body weight Body temperature Oxygen saturation Oxygen saturation in Arterial blood by Pulse oximetry Heart rate Systolic And Diastolic Provider Name and Address Organization Details Last Updated DateTime 3 23747.4 4 g 97.9 [degF] 98 % 98 % 85 /min 130/80 mm[Hg] Candis Swan [facility] & [place] 3 10:30:53 Date Recorded Body height Oxygen saturation Oxygen saturation in Arterial blood by Pulse oximetry Heart rate Body temperature Body mass index (BMI) Body weight Provider Name and Address Organization Details Last Updated DateTime 3 165.1 cm 99 % 99 % 91 /min 97.3 [degF] 29.2 kg/m2 15297.1 g Maria G Owen [facility] & [place] 3 09:47:59 Social History None recorded. Functional Status None recorded. Mental Status None recorded. Family History Nothing Reported. Medical History No medical history recorded. Gynecological HistoryNo gynecological history recorded. Obstetrics History GPAL:G 0 P 0 0 0 0 Past Encounters Encounter ID Performer Location Encounter Start Date Encounter Closed Date Diagnosis/Indication Diagnosis SNOMED-CT Code Diagnosis ICD10 Code Diagnosis Note [id number] Phoenix Reed MD [facility] [address] [place] [id number] 12/10/2022 10:07:08 12/10/2022 11:55:38 Abnormal finding on evaluation procedure [id number] R89.4 The patient presents with an odd constellat ion of symptoms including intermitte nt rashes, fatigue/ma laise, and pain around the right knee joint. She tested positive for Lyme IgM and IgG antibodies by screening enzyme immunoassa y. Overall, her symptomato logy, though I am not certain what the etiology is, seems atypical Lyme disease. Furthermor e, she has not recently traveled to an endemic area. Finally, the pain around her knee appears to involve the pes anserine bursa more than the joint itself. Lyme disease would more likely involve the joint itself. Consequent ly, I suspect the screening serology is falsely positive. Neverthele ss, I cannot be sure, as Lyme disease can have varied presentati ons and [place] occasional ly [place] [facility] areas. Consequent ly, I am going to perform a Lyme immunoblot to confirm true Lyme disease. She will follow up with me after I have these results. In the off chance that she does have true Lyme disease, it appears she has been treated appropriat robyn already. [id number] Phoenix Reed MD [facility] Infecti[facility] Disease [address] [place] [id number] 01/01/2023 09:43:13 01/01/2023 10:47:24 Measurement finding outside reference range [id number] R89.9 The patient has inconclusi ve Lyme immunoblot testing. Overall, I am unsure what to make of her clinical history. Certainly, it could fit with Lyme disease. However, given that she has not been to an endemic area, I tend to think the testing is falsely positive. Neverthele ss, she completed a sufficient course of doxycyclin e regardless and has minimal, if any, residual symptomato logy. Consequent ly, no further workup or treatment should be needed unless new symptoms occur. She will follow up with me as needed. Health Concerns Section Related Observation LastModified by Organization Detai ls LastModified Time None Recorded Concern Status LastModified by Organization Details LastModified Time None Recorded Advance Directives Directive None Recorded Payers Insurance Date Sequence Insurance Name Policy Number Policy Martell Covered Member ID Martell Member ID Guarantor Name 12/29/2022 1 [employer] [facility] (MEDICAID HMO) Magalys Maria [id number] Magalys Maria Notes Date Note Type Note Provider Name and Address Organization Details Recorded Time 12/10/2022 text/html This is a previously healthy 37-year-old white female. She had a uterine polyp removed about 2 months ago. About 3 days after this procedure, she noted an odd constellation of symptoms. She 1st began with a rash over the back part of her right knee. She later developed a rash over her left anterior arm. These started out as red patches that gradually enlarged. There was no associated itching. These resolved with time. She later started developing pain around her right knee, particularly over the medial side of her right knee. She did not have any fever. No other joints have been involved. Her only other symptom is malaise. The rashes have come back at various points. She states that her knee pain tends to worsen after taking a shower.. She was treated with a course of doxycycline after screening Lyme disease testing was positive. Since that time, her main persistent symptom is fatigue and malaise. She denies any known tick bites. She denies any travel to areas, such as [place] or the [place]. Phoenix Reed MD [address] [facility], [place], [address], [facility] [place] - [place] & [place] 12/10/2022 11:54:48 01/01/2023 text/html This is a 37-year-old white female referred to me for possible Lyme disease. She previously completed a course of doxycycline. She is here for follow-up. Overall, she states she is doing relatively well. All the knee pain she had resolved. She is had no more rashes. She occasionally has some pain in the left hand, but no other symptoms. No other issues. Phoenix Reed MD [address], [place], [address], [facility] - [place] & [place] 01/01/2023 10:46:29 OBGyn Episode No OBEpisode recorded.
--- OUTSIDE RECORDS SUMMARY | 2024-12-01 11:09 | XMS_ITS | Clinical Summary ---
Author Organization [facility] Address [address] [place] [address] Phone Care Team Providers Care Handbag Designer Name Role Phone Shilo Spain MD Primary Care Provider [phone] Allergies Active Allergy Reactions Criticality Noted Date Comments Atorvastatin Swelling 11/14/2022 Medications buPROPion (WELLBUTRIN XL) 150 mg Oral Tablet Sustained Release 24 hr Take 150 mg by mouth daily. Active ergocalciferol (DRISDOL) 1,250 mcg (50,000 unit) Oral Capsule Take 50,000 Units by mouth once a week. Active omeprazole (PRILOSEC) 20 mg Oral Capsule, Delayed Release(E.C.) Take 20 mg by mouth daily. Active phentermine (ADIPEX-P) 37.5 mg Oral Tablet Take 1 Tablet by mouth daily. 05/09/2022 Active Mqttt-3-DLG-EPA- Fish Oil (FISH OIL) 1,000 mg (120 mg-180 mg) Oral Capsule Take 1,000 mg by mouth daily. Active Active Problems Problem Noted Date Diagnosed Date Pseudophakia 01/13/2024 Assessment & Plan (01/13/2024 12:19 PM EDT): PCIOL OU w/Dr. Gariaby 2023 Doing well after surgery and is happy with +1.00/+1.25 OTC reader for near. Continue to monitor yearly. 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 Abnormal uterine bleeding (AUB) 09/29/2022 Resolved Problems Problem Noted Date Diagnosed Date Resolved Date Postoperative care for cataract of left eye 12/16/2023 01/13/2024 Assessment & Plan (12/16/2023 9:26 AM EDT): PO D1 cataract extraction with phacoemulsification and intraocular lens- Left eye on 12/15/2023 (CPT 61904). Patient healing as expected. Continue post op precautions. Pt has requested minimonovision S/p cataract extraction with phacoemulsification and intraocular lens- Right eye on 11/24/2023 (CPT 06951). Postoperative care for cataract of right eye 01/13/2024 Assessment & Plan (11/25/2023 10:18 AM EDT): PO D1 cataract extraction with phacoemulsification and intraocular lens- Right eye on 11/24/2023 (CPT 47539). Patient healing as expected. Continue post op precautions. Posterior subcapsular polar age-related cataract of left eye 10/28/2023 01/13/2024 Assessment & Plan (12/22/2023 10:49 AM EDT): S/p cataract extraction with phacoemulsification and intraocular lens- Left eye on 12/15/2023 (CPT 87228). Patient healing as expected. Aimed for slightly more myopic then OD as patient requested minimonovision with basic lens. S/p cataract extraction with phacoemulsification and intraocular lens- Right eye on 11/24/2023 (CPT 27275). Assessment & Plan (12/11/2023 10:58 AM EDT): S/p cataract extraction with phacoemulsification and intraocular lens- Right eye on 11/24/2023 (CPT 24922). Discussed with patient her current vision, the amount of monovision she has now, and the option to hold off on surgery OS. Patient states she does not wish to hold off on surgery and would like to proceed with CEIOL OS. Discussed goals of surgery and patient requesting mini-monovision. Patient states that symptoms and/or findings are severe enough to warrant surgery. Discussed options with patient including goals of surgery and available options. Discussed that some options are not covered by insurance and discussed in detail what the different options consist of, what the out of pocket costs for each option would be, and why these options are not covered by insurance. Discussed that no single surgery can address all eye problems that may limit vision/symptoms. Discussed risks and benefits of surgery and patient would like to proceed with procedure. I attest that the patient/patient retail field representative has been counseled as to the potential benefits, risks, and side effects to medical and surgical treatment, including the likelihood of success and potential problems that might occur during recuperation. The patient/patient retail field representative has also been counseled as to the alternatives to this intervention, including possible results of not having this intervention performed and benefits and risks of these alternatives. The patient/patient retail field representative has given their consent to proceed with this intervention after having their questions sufficiently answered. Patient would like to proceed with basic CEIOL OS Assessment & Plan (10/28/2023 4:32 PM EDT): Patient presents for cataract eval after being scheduled for surgery with Dr. Clement. Long discussion about her current vision, expectations, and reason to proceed with surgery. Discussed loss of accomodation. Patient expressed understanding. Patient states that symptoms and/or findings are severe enough to warrant surgery. Discussed options with patient including goals of surgery and available options. Discussed that some options are not covered by insurance and discussed in detail what the different options consist of, what the out of pocket costs for each option would be, and why these options are not covered by insurance. Discussed that no single surgery can address all eye problems that may limit vision/symptoms. Discussed risks and benefits of surgery and patient would like to proceed with procedure. I attest that the patient/patient retail field representative has been counseled as to the potential benefits, risks, and side effects to medical and surgical treatment, including the likelihood of success and potential problems that might occur during recuperation. The patient/patient retail field representative has also been counseled as to the alternatives to this intervention, including possible results of not having this intervention performed and benefits and risks of these alternatives. The patient/patient retail field representative has given their consent to proceed with this intervention after having their questions sufficiently answered. Patient would like to proceed with basic CEIOL OD Posterior subcapsular age-re lated cataract of left eye 10/28/2023 12/16/2023 Surgical History Surgery Date Site/Laterality Comments COLPOSCOPY APPENDECTOMY 05/12/1993 - 05/11/1994 I was around 8yr old CHOLECYSTECTOMY TONSILLECTOMY ENDOMETRIAL ABLATION 10/11/2022 N/A ENDOMETRIAL ABLATION WITH NOVASURE DILATION AND CURETTAGE HYSTEROSCOPY; Surgeon: Awilda Back DO; Location: [facility] OR; Service: Gynecology TUBAL LIGATION 05/12/2013 - 05/11/2014 CATARACT REMOVAL 11/24/2023 Eye/Right Right Eye CATARACT EXTRACTION WITH PHACOEMULSIFICATION AND INTRAOCULAR LENS; Surgeon: Arie Garibay MD; Location: [facility]; Service: Ophthalmology Medical devices from this surgery are in the Medical Devices section. CATARACT REMOVAL 12/15/2023 Eye/Left Left Eye CATARACT EXTRACTION WITH PHACOEMULSIFICATION AND INTRAOCULAR LENS; Surgeon: Arie Garibay MD; Location: [facility]; Service: Ophthalmology Medical devices from this surgery are in the Medical Devices section. Medical History Medical History Date Comments Depression Hyperlipidemia high triglycerid es not on medication Liver disease fatty liver Heartburn Headache Post-operative nausea and vomiting Motion sickness Fatty liver Family History Medical History Relation Name Comments High Cholesterol Father Dinh Heart Failure Maternal Grandmother Priti Asthma Mother Dori Cataracts Mother Dori Diabetes Mother Dori Glaucoma Mother Dori High Cholesterol Mother Dori Hypertension Mother Dori Migraines Mother Dori Thyroid Disease Mother Dori Macular Degen Paternal Grandfather Ovarian Cancer Paternal Grandmother Sonam Anesth Problems Neg Hx Relation Name Status Comments Father Dinh Alive Maternal Grandmother Priti Mother Dori Alive Paternal Grandfather Paternal Grandmother Sonam Social History Tobacco Use Types Packs/Day Years Used Date Smoking Tobacco: Never Passive Smoke Exposure: Never Smokeless Tobacco: Never Tobacco Cessation:Counseling Given: No Alcohol Use Standard Drinks/Week Comments Never 0 (1 standard drink = 0.6 oz pur e alcohol) Sexually Active Control Partners Comments Yes Surgical Male Tubes tied Comments No Sex and Gender Information Value Date Recorded Sex Assigned at Not on file Legal Sex Female 10:43 AM EDT Gender Identity Not on file Sexual Orientation Not on file Obstetrics History Para Term AB IAB SAB Ectopic Multiple Livin g Live Births 5 4 4 1 1 4 4 Date Outcome GA Total Labor Labor/2nd/3rd Weight Sex Type Anes PTL Clari A1 A5 Name Clin 2004 Term Vag-S pont Living 2005 Term Vag-S pont Living 2011 Term Vag-S pont Living 2012 SAB 2014 Term F Vag-S pont Living Last Filed Vital Signs Vital Sign Reading Time Taken Comments Blood Pressure 144/80 12/15/2023 12:35 PM EDT Pulse 78 12/15/2023 12:35 PM EDT Temperature 36.6 C (97.9 F) 12/15/2023 12:35 PM EDT Respiratory Rate 16 12/15/2023 12:35 PM EDT Oxygen Saturation 99% 12/15/2023 12:35 PM EDT Inhaled Oxygen Concentration - - Weight 85.3 kg (188 lb) 12/15/2023 10:33 AM EDT Height 160 cm (5' 3 ) 12/15/2023 10:33 AM EDT Body Mass Index 33.3 12/15/2023 10:33 AM EDT Plan of Treatment Upcoming Encounters Date Type Department Care Team (Late st Contact Info) Description 12/10/2024 2:30 PM EDT Office Visit [facility] [address] [place] [address] Awilda Back, [address] [facility] [employer] [place], [place] [id number] 01/17/2025 12:50 PM EDT Office Visit [facility] [address] [place] [address] Vaughn Dalton, OD [address] [place], [place] [id number] Health Maintenance Due Date Last Done Comments Annual Wellness Exam 08/25/1987 Hepatitis B Vaccine (1 of 3 - 19+ 3-dose series) 08/25/2003 DTaP/TDaP/Td (2 - Td or Tdap) 11/19/2023 11/18/2013 COVID-19 Vaccine (2023-2 5 season) 2024 Breast Cancer Screening 2024 06/21/19, 12/29/2018 Influenza Vaccine (#1) 2025 8, 01/28/2017, 03/11/2016 Pap Smear 11/14/2025 11/14/2022 Cervical Cancer Screening 11/15/2027 HPV/Pap Cotest 11/15/2027 11/14/2022 Meningococcal B Vaccine Aged Out No l onger eligible based on patient's age to complete this topic Pneumococcal Vaccine 0-49 Aged Out No longer eligible based on patient's age to complete this topic Medical Devices Implanted Type Area Gis Software Engineer Device Identifier Shelf Expiration Date Model / Serial / Lot Lens Iol +12.0 Diopter Biconvex Tecnis Simplicity Posterior - [id number] Implanted:Qty: 1 on 11/24/2023 by Arie Garibay MD at [facility] Right: Eye [employer] [id number] 02/14/2025 [id number] / [id number] / Lens Iol +14.0 Diopter Biconvex Tecnis Simplicity Posterior - [id number] Implanted:Qty: 1 on 12/15/2023 by Arie Garibay MD at [facility] Left: Eye [employer] [id number] 12/17/2024 [id number] / [id number] / Procedures Procedure Name Priority Date/Time Associated Diagnosis Comments [employer] CYTOLOGY REQUEST (PAP ONLY) Routine 11/14/2022 1:21 PM EDT Encounter for well woman exam with abnormal findings from Last 3 Months or Most Recently Relevant to Health Maintenance Results * [employer] CYTOLOGY REQUEST (PAP ONLY) (11/14/2022 1:21 PM EDT) CASE REPORT Gynecologic Cytology Report Case: [id number] Authorizing Provider: Awilda Back DO Collected: 11/14/2022 1321 Ordering [facility] Received: 11/14/2022 1321 First Screen: Kei Parrish CT Specimen: LIQUID-BASED PAP - CERVICAL/ENDOCERV ICAL, Cervix, Endocervical 11/18/2022 10:31 AM EDT [facility] PAP FINAL DIAGNOSIS Negative for intraepithelial lesion or malignancy 11/18/2022 10:31 AM EDT [facility] at 1031 EDT MICROSCOPIC DESCRIPTION Microscopic examination is performed and the findings corroborate the diagnosis. 11/18/2022 10:31 AM EDT [facility] PAP SMEAR ADEQUACY Satisfactory for evaluation 11/18/2022 10:31 AM EDT [facility] ENDOCERVICAL T-ZONE Transformation zone absent. 11/18/2022 10:31 AM EDT [facility] EMBEDDED IMAGES 10:31 AM EDT [facility] PAP DISCLAIMER The Pap Smear is a screening test that aids in the detection of cervical cancer and cancer precursors. Both false positive and false negative results can occur. The test should be used at regular intervals, and positive results should be confirmed before definitive therapy. Processed using the ThinPrep Materials Handler Automated cytology screening device (PingTank). 11/18/2022 10:31 AM EDT [facility] Thin Prep ENDOCERVICAL STRUCTURE / Unknown 11/14/2022 1:21 PM EDT 11/14/2022 1:21 PM EDT Awilda Back DO CYTOLOGY ORDERABLES Fin al Result [facility] [address] [place] [address] from Last 3 Months or Most Recently Relevant to Health Maintenance Insurance [facility] [place] [address] [place] [address] Care Teams Handbag Designer Relationship Specialty Start Date End Date Shilo Spain MD [address] [place] [id number] PCP - General Family Medicine 10/18/20
--- OUTSIDE RECORDS SUMMARY | 2024-12-01 11:09 | XMS_ITS | Continuity of Care Document ---
[facility] Organization [facility] Address [address] [place] [address] Assessment Encounter Date Assessment Date Assessment LastModified by Organization Details LastModified Time 11/05/2024 11/05/2024 Risks, benefits, and alternatives of the medication have been discussed with the patient. She would like to move forward with a prescription of adipex. [email or web address] Not available 11/05/2024 09:29:25 Plan of Treatment Reminders Order Date Submit Date Provider Last Modified By Organization Details Last Modified Time Details Appointments Follow Up 20 2024 09:00A M Monse Castillo APRN Not available Not available Not available Lab None recorded. Referral None recorded. Procedures None recorded. Surgeries None recorded. Imaging None recorded. Medication Orders phentermi ne 37.5 mg tablet 2024 025 [facility], [address] [facility] , [place], [place], [id number], 11/05/2024 11:17:47 Patient TargetsNo targets recorded. Patient Instructions Encounter Date Encounter Id Patient Instructions Last Modified By Organization Details Last Modified Time 11/05/2024 [id number] Treament Plan: Patient will start medication as directed. Patient will continue exercise, watch calorie intake, and follow up for weight check in 1 month. evan Not available 11/05/2024 08:38:32 Reason for Referral None Reported. Problems Name Problem SNOMED Code Status Onset Date Resolution Date Notes Provider Name and Address Organization Details Recorded Time Human papilloma virus infection 607079797 Completed 03/12/2019 Sayda Villavicencio APRN [address], [place], [address] , [place] - [facility] 9 09:07:38 care status 140605424 Active Oralia vega, [place] - [facility] 3 10:20:12 Delivery normal 08551022 Active Oralia vega, [place] - [facility] 3 10:20:12 Scoliosis deformity of spine 636903705 Active 2015 Oralia Zacarias null, [place] - [facility] 3 10:20:12 Hyperlipid emia 09375983 Completed 201603/12/2019 Saydafrancy Villavicencio, [employer]PER[employer] [address], [place], [address] , [place] - [facility] 9 09:06:53 Obesity 835062679 Active 2016 Oralia vega, [place] - [facility] 3 10:20:12 Gastroesop hageal reflux disease 509202867 Completed 201703/12/2019 Sayda Villavicencio, [employer] SUPER[employer] [address], [place], [address] , [place] - [facility] 9 09:07:58 Mixed hyperlipid emia 093403602 Active 2017 Oralia vega, [place] - [facility] 3 10:20:12 Depressive disorder 01413953 Active 2017 Oralia vega, [place] - [facility] 3 10:20:12 Vitamin D deficiency 28729736 Active 2018 Oralia Zacarias null, [place] - [facility] 3 10:20:12 Acid reflux 175972552 Active 2021 Oralia Zacarias null, [place] - [facility] 3 10:20:12 Anxiety 39386657 Active 2021 Oralia Zacarias null, [place] - [facility] 3 10:20:12 Break-thro ugh bleeding 37730032 Active 2021 Oralia vega, [place] - [facility] 3 10:20:12 Chronic constipati on 082210055 Active 2021 [place] Brand[place] - [facility] 3 10:20:12 Family history of malignant neoplasm of ovary 966335569 Active 2021 [place] Brandt - [facility] 3 10:20:12 Lyme disease 18504207 Active 2022 [place] Brandt - [facility] 3 10:20:12 Problem Notes None recorded. Procedures Surgical History Date Name Laterality Status Provider Name and Address Organization Details Recorded Time 023 endoscopy and biopsy of upper gastrointestinal tract completed Aymile Jessenia [place] - [facility] 01/07/2023 08:40:43 023 IV Infusion completed Oralia Zacarias [place] - [facility] 05/28/2022 17:04:57 022 Date of Last Pap Smear completed Sayda Villavicencio, [employer]PER[employer] [address], [place], [address] [place] - [facility] 08/10/2021 08:28:41 021 Medication Reconcilliation completed Tammie Huddleston [place] - [facility] 09/22/2020 13:54:40 014 Tubal Ligation completed Diane Bejaranorus [place] - [facility] 02/27/2017 12:44:18 011 Colposcopy completed Diane Bejaranorus [place] - [facility] 02/27/2017 12:42:07 011 Colposcopy completed Diane Bejaranorus [place] - [facility] 02/27/2017 12:43:49 009 tonsilectomy/adenoi ds completed Magi Anastasiia [place] - [facility] 03/10/2018 09:13:35 993 Appendectomy completed Magi Laurent [place] - [facility] 01/02/2017 14:23:54 Imaging Results None recorded. Procedure Notes None recorded. Medical Equipment None Reported. Allergies Allergen ID Allergen Name Allergen Category Reaction Reaction Severity Criticality Documentation Date Start Date Code Code System Note Provider Name and Address Organization Details Recorded Time 464750 atorvasta tin medicatio n edema Not available Not available 09/30/2018 44067 RxNorm pain in legs Rachna Smiley gary, [place] - [facility] 9 14:28:04 Medications Name Sig [...] nued on: 11/27/19 16 9:06AM;U ser: jada c;Est. Completi on: 07/06/19 15;Print ed: 06/06/19 15 [...] Disconti nued on: 11/28/19 12 10:17AM; User: stuart; Est. Soto on: 09/25/19 12;Print ed: 09/20/19 12 [...] Disconti nued on: 02/21/20 11 9:04AM;U ser: calvom;E st. Completi on: 02/21/20 11;Indic ation: Vertigo - [...] Disconti nued on: 12/22/19 16 2:30PM;U ser: meyerst; Est. Completi on: 12/31/19 16;Indic ation: Migraine - (06.3469 00);Phar macAnteri fied: 12/06/19 16 9:16AM Not Available Not Available Not Available ibuprofen 600 mg tablet take 1 tablet (600 mg) by oral route 3 times per day with food for 30 days 11/13 completed ibuprofe n 600 mg oral tablet;R ecorded Status: Recorded on: 04/30/20 10 11:02AM; Disconti nued Status: Disconti nued on: 11/14/19 11 8:56AM;U ser: calvom;E st. Completi on: 05/30/19 11;Print ed: 04/30/20 [...] nued on: 05/21/19 14 10:05AM; User: ramos Botello Completi on: 04/03/20 13;Indic ation: Pregnanc y [...] Status: Recorded on: 12/22/19 16 2:30PM;U ser: jonn Davidson on: Headache - (784.0); Printed: 12/27/19 16 [...] Updated DateTime 5 160.02 cm 34.2 kg/m2 83827.3 3 g 18 /min 0 98 % 98 % 68 /min 118/76 mm[Hg] Oralia Zacarias [place] - [facility] 5 08:48:36 Social History Question Answer Notes LastModified by Organizat ion Details LastModified Time Tobacco Smoking Status Never Smoker Olivia vega [place] - [facility] 03/25/2016 12:51:26 Do You Have An Advance Directive? No [email or web address] Information not available 03/10/2018 Do You Wear A Helmet When Biking? No [email or web address] Information not available 12/25/2020 Are You Blind Or Do You Have Difficulty Seeing? No [email or web address] Information not available 12/25/2020 Is Blood Transfusion Acceptable In An Emergency? Yes [email or web address] Information not available 03/10/2018 What Is Your Level Of Caffeine Consumption? Moderate [email or web address] Information not available 08/06/2021 How Much Tobacco Do You Chew? None Information not available 02/28/2017 In The 14 Days Before Symptom Onset, Have You Had Close Contact With A Laboratory-confir med COVID-19 While That Case Was Ill? No [email or web address] Information not available 08/06/2021 In The 14 Days Before Symptom Onset, Have You Had Close Contact With A Person Who Is Under Investigation For COVID-19 While That Person Was Ill? No Information not available 08/06/2021 Have You Been To An Area Known To Be High Risk For COVID-19? No [email or web address] Information not available 08/06/2021 Are You Deaf Or Do You Have Serious Difficulty Hearing? No [email or web address] Information not available 01/02/2017 What Type Of Diet Are You Following? REGULAR Information not available 02/27/2017 Which Illicit Or Recreational Drugs Have You Used? None Information not available 03/10/2018 Have You Processed Blood Or Body Fluids From An Ebola Virus Disease Patient Without Appropriate PPE? No [email or web address] Information not available 08/06/2021 Do You Reside In Or Have You Traveled To An Area Where Ebola Virus Transmission Is Active? No [email or web address] Information not available 08/06/2021 What Is The Highest Grade Or Level Of School You Have Completed Or The Highest Degree You Have Received? [id number] Information not available 03/10/2018 How Many Days Of Moderate To Strenuous Exercise, Like A Brisk Walk, Did You Do In The Last 7 Days? 1 [email or web address] Information not available 12/25/2020 On Those Days That You Engage In Moderate To Strenuous Exercise, How Many Minutes, On Average, Do You Exercise? 1 ofikky91 Information not available 12/25/2020 Swimming/diving No [email or web address] Informati on not available 12/25/2020 Have There Been Any Changes To Your Family Or Social Situation? No [email or web address] Information no t available 08/06/2021 How Hard Is It For You To Pay For The Very Basics Like Food, Housing, Medical Care, And Heating? Not Very Hard [email or web address] Information not available 08/06/2021 What Is The Fluoride Status Of Your Home? Fluoridated [email or web address] Information not available 08/06/2021 Hard Of Hearing Or Deaf In One Or Both Ears? No [email or web address] Information not available 12/25/2020 Have You Recently Or Are You Planning To Travel To An Area With Zika Virus? No [email or web address] Information not available 08/06/2021 Legally Blind In One Or Both Eyes? No Information no t available 12/25/2020 Live Alone Or With Others? With Others [email or web address] Information not available 12/25/2020 Do You Have A Medical Power Of Operations Management Professionals? No [email or web address] Information not available 08/06/2021 What Was The Date Of Your Most Recent Tobacco Screening? 09/10/2024 [email or web address] Information not available 09/10/2024 How Many Children Do You Have? 4 [email or web address] Information not available 01/02/2017 Performs Monthly Self-breast Exam? No [email or web address] Information no t available 12/25/2020 Do You Use Protection During Sex? Always Information not available 03/12/2019 Do You Use Protection Against STDs? No [email or web address] Information not available 08/06/2021 What Is Your Relationship Status? [email or web address] Information not available 02/27/2017 Seat Belts Used Routinely Yes Information not available 12/25/2020 Are You Sexually Active? Yes [email or web address] Information not available 12/25/2020 Smoke Alarm In Home Yes [email or web address] Information not available 12/25/2020 Do You Have Smoke And Carbon Monoxide Detectors In Your Home? Yes Information not available 08/06/2021 Are You Passively Exposed To Smoke? No [email or web address] Information no t available 08/06/2021 How Much Tobacco Do You Smoke? No Information not available 02/28/2017 General Stress Level Low [email or web address] Information not available 12/25/2020 Do You Use Sunscreen Routinely? No Information not available 03/10/2018 Has Tobacco Cessation Counseling Been Provided? No [email or web address] Information not available 08/06/2021 How Many Years Have You Smoked Tobacco? 0 Information not available 02/28/2017 Do You Have Difficulty Walking Or Climbing Stairs? No [email or web address] Information not available 12/25/2020 What Contraceptive Method Was Reported At Start Of This Visit? Female Sterilization [email or web address] Information not available 08/06/2021 Do You Want To Talk About Contraception Or Prevention During Your Visit Today? No - I Am Already Using Contraception [email or web address] Information not available 08/06/2021 Do You Have Any Future Plans To Get ? No, I Don't Want To Become [email or web address] Information not available 08/06/2021 Sex: Female Functional Status Question Answer Note LastModified by Organizat ion Details LastModified Time Do you or have you ever used smokeless tobacco? Never used smokeless tobacco [email or web address] Information not available 03/12/2019 Are you currently employed? No Information not available 02/28/2017 Do you have transportation difficulties? No [email or web address] Information not available 08/06/2021 Urinary incontinence assessment performed? Yes [email or web address] Information not available 12/25/2020 Are you able to care for yourself? Yes [email or web address] Information n ot available 02/27/2017 Do you have difficulty dressing or bathing? No [email or web address] Information not available 12/25/2020 Do you or have you ever used e-cigarettes or vape? Never used electronic cigarettes [email or web address] Information not available 03/12/2019 What is your exercise level? Occasional [email or web address] Information not available 02/27/2017 Do you use any illicit or recreational drugs? No [email or web address] Information not available 08/06/2021 Do you or have you ever used any other forms of tobacco or nicotine? No [email or web address] Information not available 08/06/2021 What is your level of alcohol consumption? None Information not available 02/28/2017 What is your status? Not [email or web address] Information no t available 08/06/2021 Are you able to walk? YESWOREST [email or web address] Information not available 12/25/2020 Do you have difficulty doing errands alone? No [email or web address] Information not available 12/25/2020 What is your occupation? housewife [email or web address] Information not available 09/22/2018 Mental Status Question Answer Note LastModified by Organizat ion Details LastModified Time Do you feel stressed (tense, restless, nervous, or anxious, or unable to sleep at night)? [id number] [email or web address] Information not available 08/06/2021 Do you have difficulty concentrating, remembering or making decisions? No [email or web address] Information no t available 12/25/2020 Family History Relationship Description Onset Age of this Age Resolved Age Notes LastModified by Organization Details LastModified Time Maternal Grandmother Heart disease [email or web address] Not available 2015 12:51:09 Mother Hypothyroidi sm [email or web address] Not available 2020 15:36:51 Mother Chronic obstructive pulmonary disease [email or web address] Not available 03/10 09:12:18 Mother Diabetes mellitus [email or web address] Not available 2018 10:04:50 Paternal Grandmother Family history of malignant neoplasm of ovary 90 90 Not available 2016 13:34:17 Unspecified Relation Family history of malignant neoplasm of ovary 42 cousin [email or web address] Not available 08/06 13:45:32 Medical History Condition [...] Obesity Y Vision or Eye Problems Y Arthritis N Restless Leg Syndrome N Polyps N Infertility N Carpal Tunnel [...] Bladder or Kidney Problems N Fracture N Panic Disorder N Schizophrenia N Concussion Y Spina Bifida N Osteoarthritis N Parkinson's Disease N Disc Protrusion N STI N Esophagitis N Angina N Thyroid Problems N GI Problems N ADD/ADHD N Anemia N Multiple Sclerosis N Abnormal PAP Y Lumbago N Mental Illness N Psychiatric Illness N Diabetes N Ovarian Cancer N Degenerative Disc Disease N Seizures/Epilepsy N Hyperlipidemia Y Syncope N Insomnia N Eczema N Abuse/Domestic Violence N Attention Deficient Disorder N Dementia N Ulcerative colitis N Cerebrovascular Disease N Depression N Guillain-Culver N Sleep Apnea N Aneurysm N Bronchitis N Heart Disease N Hypertension N Pre-Eclampsia N Suicidal Ideation N Osteoporosis N Gynecological History Statement/Question Response Abnormal Pap Yes Flow Light Date of Last Mammogram Date of LMP 09/19/2022 STIs/STDs Y Colposcopy 08/31/2010 HPV Vaccine N Duration of Flow (days) 4 Current Control Method Tubal Ligat ion Age at Menarche 11 Age at First Child 18 Last Annual Exam/Provider 08/06/21 w/ K. Young J[employer]ITORIAL SUPERVISOR Last Lipids 02/27/17 Date of Last [...] Time Tdap 11/19/19 14 completed Not [facility] 01:48:11 Influenza, split virus, quadrivalent, preservative 02/28/20 17 cancelled patient objection Not Available [facility] 05/29/2019 03:54:42 Influenza, split virus, quadrivalent, preservative 08/07/19 22 cancelled patient objection Soledad Gm, J[employer] SUPERVISOR [address], [place], [address], [place] - [facility] 08/06/2021 14:08:21 Influenza, split virus, quadrivalent, preservative 03/10/20 18 cancelled patient objection Not Available [facility] 05/29/2019 03:55:22 Influenza, split virus, quadrivalent, preservative 03/11/20 16 completed Not Available [facility] 01/07/2023 01:48:11 Influenza, split virus, quadrivalent, preservative 01/29/20 17 completed Not Available [facility] 01/07/2023 01:48:11 Influenza, split virus, quadrivalent, preservative 04/23/20 18 completed Not Available [facility] 01/07/2023 01:48:11 Influenza, split virus, quadrivalent, PF 03/12/20 19 cancelled patient objection Not Available [facility] 05/29/2019 03:56:08 Past Encounters Encounter ID Performer Location Encounter Start Date Encounter Closed Date Diagnosis/Indication Diagnosis SNOMED-CT Code Diagnosis ICD10 Code Diagnosis Note [id number] Monse Castillo APRN [address] [address] 11/05/2024 08:32:24 11/05/2024 09:51:53 Body mass index 30+ - obesity 478988506 Z68.34 [facility] [facility] dication compliance discussedL ast uds:09/10/24 Control substance agreement on file Health Concerns Section Related Observation LastModified by Organization Detai ls LastModified Time None Recorded Concern Status LastModified by Organization Details LastModified Time None Recorded Payers Encounter Date Sequence Insurance Name Policy Number Policy Martell Covered Member ID Martell Member ID Guarantor Name 11/05/2024 1 [employer] [facility] (MEDICAID HMO) Magalys Maria [id number] Magalys Maria Notes Date Note Type Note Provider Name and Address Organization Details Recorded Time 11/05/2024 text/html 39 yr old female presents for a weight loss follow up. down 2 lbs doing well with diet and exercise Monse Castillo, J[employer]OR[employer] SUPERVISOR [address], [place], [address], [place] - [facility] 11/05/2024 09:30:46 OBGyn Episode No OBEpisode recorded.
[2024-12-01] MEDS: droPERidol 5MG/2ML VIAL 2.5 MG IV (11:26)
[2024-12-01] MEDS: 0.9 % SODIUM CHLORIDE 1000ML 1,000 ML 999 ML IV (11:26)
--- NOTE | 2024-12-01 11:26 | ECG_ITS ---
APPROVED REPORT Exam: Resting ECG HR:84 bpm ECG Measurements Heart Rate 84 AXES [place] 143 P 59 QRSd 81 QRS 1 QT 368 T 38 QTc 409 Conclusion SINUS RHYTHM LOW QRS VOLTAGE IN PRECORDIAL LEADS [QRS DEFLECTION < 1.0 mV IN CHEST LEADS] BORDERLINE ECG UNCONFIRMED REPORT Electronically signed by : Ponce Soria, 12/01/2024 16:59:09
[2024-12-01 11:40] LABS: HCG Qualitative, Serum Negative (Negative); Hematocrit 38.1 % (37.0-47.0); Hemoglobin 13.4 g/dL (12.2-16.2); Immature Granulocytes % 0.2 %; Mean Corpuscular HGB Conc 35.2 g/dL (31.8-35.4); Mean Corpuscular Hemoglobin 29.7 pg (27.0-31.2); Mean Corpuscular Volume 84.5 fl (81-99); Nucleated Red Blood Cells % 0 %; Platelet Count 256 K/mm3 (142-424); Red Blood Count 4.51 M/mm3 (4.20-5.40); Red Cell Distribution Width-SD 36.2 fL; White Blood Count 5.7 K/mm3 (4.8-10.8)
[2024-12-01 11:54] LABS: Albumin Level 4.7 g/dl (3.5-5.0); Chloride 104 mmol/L (98-107); Potassium 3.7 mmoL/L (3.5-5.1); Sodium 136 mmol/L (136-145)
[2024-12-01 11:56] LABS: Alanine Aminotransferase 33 U/L (12-78); Aspartate Amino Transferase 39 U/L (14-36); Blood Urea Nitrogen 12 mg/dl (7-17); Creatinine Clearance Estimated 145 mL/min (50-200); Creatinine,Serum 0.70 mg/dl (0.52-1.04); Estimated Glomerular Filt Rate 93 ml/min (>60); GFR (African American) 112 ML/MIN (>60)
[2024-12-01 11:57] LABS: Albumin/Globulin Ratio 1.6 (1.1-1.8); Alkaline Phosphatase 78 U/L (38-126); Anion Gap 11.7 mEq/L (5-15); Bilirubin,Total 0.9 mg/dl (0.2-1.3); Calcium 9.5 mg/dl (8.4-10.2); Carbon Dioxide 24 mmol/L (22.0-30.0); Globulin 3.0 g/dL (1.3-3.2); Glucose 105 mg/dl (74-100); Magnesium 2.0 mg/dl (1.6-2.3); Total Protein,Serum 7.7 g/dl (6.3-8.2)
[2024-12-01] MEDS: 0.9 % SODIUM CHLORIDE 50 ML VIAL IV (12:07)
[2024-12-01] MEDS: IOPAMIDOL-370 (76%);100ML BOTTLE 80 ML IV (12:07)
[2024-12-01] MEDS: SODIUM CHLORIDE 0.9% 10ML SYR (RAD ONLY) 10 ML IV (12:07)
[2024-12-01 12:59] LABS: Hepatitis C Ab Qual. W/ RFX NEGATIVE (Negative)
--- NOTE | 2024-12-01 14:12 | HMH.EDGENADL ---
Discharge Plan Disposition Patient Disposition: Home, Self-Care Condition: Good Prescriptions Prescriptions: No Action omeprazole 10 mg capsule,delayed release(DR/EC) 10 mg PO DAILY bupropion HCl 300 mg tablet extended release 24 hr 150 mg PO DAILY Patient Comments: Take 1 tablet by mouth daily Referrals Follow up/Referrals: Monse Castillo APRN [Primary Care Provider, Medical] - See instructions Janet Allen MD [Staff Physician, Neurology] - See instructions Activity Restrictions/Add. Instructions Additional Instructions/Restrictions: Call neurologist for appointment. Please follow up with your primary care provider in 2-3 days. Please return to ED if your symptoms worsen, change in location, change in severity, new symptoms develop or if you become concerned for your health. Clinical Impressions Clinical Impression: Headache, migraine Print Language Print Language: Greek Discharge ED Provider: Ponce Soria Adult HPI General Chief complaint: Headache Stated complaint: headache, weakness, L side numbish Time Seen by Provider: 12/01/24 10:52 Mode of Arrival: Ambulatory Source of Information: Patient Description of Symptoms (Recalled from ER Triage Doc. by RN): patient states she has had a migraine for 4-5 days with weakness and fatigue. she has been taking excedrin and ibuprofen with no relief. her headache starts in the back of head and goes into her eyes. she reports lastnight she devloped numbness and tingling in her left arm. Related Data Home Medications ?Medication ?Instructions ?Recorded ?Confirmed omeprazole 10 mg capsule,delayed 10 mg PO DAILY 04/17/20 04/17/20 release bupropion HCl 300 mg 24 hr tablet, 150 mg PO DAILY 04/26/20 extended release Allergies Allergy/AdvReac Type Severity Reaction Status Date / Time No Known Allergies Allergy Verified 04/26/20 13:18 [facility] Disclaimer: The information contained in this section may have been updated after the patient was seen, as this information can be updated by other users. Medical History (Updated 12/01/24 @ 14:13 by oPnce Soria MD) Palpitations Dyspnea COVID-19 virus detected Social History Smoking Status: Never smoker alcohol intake: never substance use type: denies use current occupational status: employed and disabled Travel in the last 8 weeks?: Inside the [place] Have you lived/traveled outside [place] in past 30 days?: No Contact w/someone who lives/traveled outside [place] past 30 days?: No Exposure to someone with infectious disease in past 14 days?: No Do you have a fever (greater than 100.4 F or 38 C)?: No Have you tested positive for COVID-19?: No Exposed to someone with COVID-19 in past 14 days?: No Do you have a sore throat?: No Do you have a cough?: No Do you have any weakness?: Yes Do you have any diarrhea?: No Are you experiencing any unusual bleeding?: No Do you have any muscle aches/pain?: No Do you have any abdominal pain?: No Are you experiencing loss of taste or smell?: No Other Medical History Have you received the Flu Vaccine for this season: No Have you received the Pneumonia Vaccine: No Physical Exam General General appearance: alert and in no apparent distress Medical Decision Making Medical Records Screening: Per USPSTF and CDC recommendations, given the prevalence of disease in our region, it is our hospital?s policy to screen for HIV and viral Hepatitis for all patients aged 18 and over and those with ongoing risk factors. [place] Inquiry Pt receiving controlled substance: No Vital Signs: 12/01/24 10:55 12/01/24 11:00 12/01/24 11:07 Temperature 98.3 F Temperature Source Oral Pulse Rate 111 H 102 H Pulse Rate [Right Radial] 111 H Respiratory Rate 16 16 Blood Pressure 142/109 H 142/105 H Blood Pressure [Right Arm] 142/109 H Blood Pressure Mean Blood Pressure Mean [Right Arm] 120 Blood Pressure Source Blood Pressure Source [Right Arm] Automatic Cuff Blood Pressure Position Blood Pressure Position [Right Arm] Supine 02 Sat by Pulse Oximetry 98 98 98 Oxygen Delivery Method Room Air 12/01/24 11:30 12/01/24 12:00 12/01/24 12:30 Temperature Temperature Source Pulse Rate 92 H 86 84 Pulse Rate [Right Radial] Respiratory Rate 13 15 15 Blood Pressure 143/86 H 128/77 146/89 H Blood Pressure [Right Arm] Blood Pressure Mean 105 Blood Pressure Mean [Right Arm] Blood Pressure Source Blood Pressure Source [Right Arm] Blood Pressure Position Blood Pressure Position [Right Arm] 02 Sat by Pulse Oximetry 96 96 100 Oxygen Delivery Method 12/01/24 13:00 12/01/24 13:30 12/01/24 14:00 Temperature Temperature Source Pulse Rate 82 78 Pulse Rate [Right Radial] Respiratory Rate 14 18 14 Blood Pressure 151/91 H 124/78 136/97 H Blood Pressure [Right Arm] Blood Pressure Mean 113 93 Blood Pressure Mean [Right Arm] Blood Pressure Source Blood Pressure Source [Right Arm] Blood Pressure Position Blood Pressure Position [Right Arm] 02 Sat by Pulse Oximetry 100 99 Oxygen Delivery Method 12/01/24 14:12 Temperature 98.6 F Temperature Source Oral Pulse Rate 94 H Pulse Rate [Right Radial] Respiratory Rate 16 Blood Pressure 136/97 H Blood Pressure [Right Arm] Blood Pressure Mean Blood Pressure Mean [Right Arm] Blood Pressure Source Automatic Cuff Blood Pressure Source [Right Arm] Blood Pressure Position Supine Blood Pressure Position [Right Arm] 02 Sat by Pulse Oximetry Oxygen Delivery Method Room Air Lab Data Lab Results 12/01/24 11:21: WBC 5.7, RBC 4.51, Hgb 13.4, Hct 38.1, MCV 84.5, MCH 29.7, MCHC 35.2, RDW 12.0, Plt Count 256, MPV 10.4, Neut % (Auto) 54.2, Lymph % (Auto) 37.5, [place] % (Auto) 6.2, Eos % (Auto) 1.4, Baso % (Auto) 0.5, Neut # (Auto) 3.1, Lymph # (Auto) 2.1, [place] # (Auto) 0.4, Eos # (Auto) 0.1, Baso # (Auto) 0.0, Sodium 136, Potassium 3.7, Chloride 104, Carbon Dioxide 24, Anion Gap 11.7, BUN 12, Creatinine 0.70, Estimated Creat Clear 145, Estimated GFR 93, Est GFR ( Amer) 112, Glucose 105 H, Calcium 9.5, Magnesium 2.0, Total Bilirubin 0.9, AST 39 H, ALT 33, Alkaline Phosphatase 78, Total Protein 7.7, Albumin 4.7, Globulin 3.0, Albumin/Globulin Ratio 1.6, Serum HCG, Qual Negative, HCV Ab SHARIF w/Rflx PCR Qn Negative, HIV Ag/Ab Combo Qual Negative 12/01/24 11:21 12/01/24 11:21 Orders (Tests/Meds): ED MEDICATIONS Discontinued Medications Generic Name Dose Route Start Last Admin Trade Name Freq PRN Reason Stop Dose Admin Diphenhydramine HCl 25 mg 12/01/24 11:05 12/01/24 11:26 Diphenhydramine 50mg/Ml Vial IV 12/01/24 11:06 25 mg ONCE ONE Administration Droperidol 2.5 mg 12/01/24 11:05 12/01/24 11:26 Droperidol 5mg/2ml Vial IV 12/01/24 11:06 2.5 mg ONCE ONE Administration Sodium Chloride 1,000 mls @ 999 mls/hr 12/01/24 11:05 12/01/24 11:26 Sod Chlor 0.9% 1000ml Bag IV 12/01/24 12:05 999 mls/hr .Q1H1M ONE Administration Iopamidol 80 ml 12/01/24 12:07 12/01/24 12:07 Iopamidol-370 (76%);100ml Bottle IV 12/01/24 12:08 80 ml ONCE ONE Administration Sodium Chloride 50 ml 12/01/24 12:07 12/01/24 12:07 0.9 % Sodium Chloride 50 Ml Vial IV 12/01/24 12:08 50 ml ONCE ONE Administration Sodium Chloride 10 ml 12/01/24 12:07 12/01/24 12:07 Sodium Chloride 0.9% 10ml Syr (Rad Only) IV 12/01/24 12:08 10 ml ONCE ONE Administration ORDERS Category Date Time Status CT angio head Stat Cat Scan 12/01/24 11:[address] angio neck Stat Cat Scan 12/01/24 11:[address] head/brain wo con Stat Cat Scan 12/01/24 11:07 Completed CBC w/Auto Diff [Complete Blood Count Auto Diff] Stat Lab 12/01/24 11:21 Completed CMP [Comprehensive Metabolic Panel] Stat Lab 12/01/24 11:21 Completed HCG Qualitative, Serum Stat Lab 12/01/24 11:21 Completed HIV Combo Stat Lab 12/01/24 11:21 Completed Hepatitis C Ab Qual. W/ RFX Stat Lab 12/01/24 11:21 Completed MAG [Magnesium] Stat Lab 12/01/24 11:21 Completed
--- NOTE | 2024-12-01 14:16 | ECG_ITS ---
APPROVED REPORT Exam: Resting ECG HR:87 bpm ECG Measurements Heart Rate 87 AXES AZ 148 P 65 QRSd 73 QRS 9 QT 297 T 29 QTc 341 Conclusion SINUS RHYTHM LOW QRS VOLTAGE IN PRECORDIAL LEADS [QRS DEFLECTION < 1.0 mV IN CHEST LEADS] BORDERLINE ECG UNCONFIRMED REPORT Electronically signed by : Ponce Soria, 12/01/2024 16:59:23
== END 2024-12-01 14:20 | disposition home or self-care (01) ==
PROVIDERS: Emergency Provider Emergency Medicine; PCP Nurse Practitioner Family
DX: R06.02 Shortness of breath (principal); R42 Dizziness and giddiness; F41.9 Anxiety disorder, unspecified; I27.20 Pulmonary hypertension, unspecified
CPT/HCPCS: 70450; 70496; 70498; 80053; 83735; 84703; 85025; 86803; 87389; 93005; 96361; 96374; 96375; 99285; J1200; J1790; J7030; Q9967